=== PATIENT | male | born 1960 | race Caucasian/White ===

== ENCOUNTER → 2018-05-05 | Outpatient (CLI) | payer MEDICAID ==
[~2018-05-05] MED LIST: ANTIBIOTIC; BICA50TA4 PO; CEPH-38 PO; CIPR500T4 PO; CIPR500T78 PO; HYDR-2890 PO; LISI10TA2 PO; LISI5TAB PO; METR500T PO; SULF-222 PO; TRAM50TA2 PO
== END ==
LOC: WOUNDCARE 08:24
PROVIDERS: ATTEND Surgery
DX: I87.323 Chronic venous hypertension (idiopathic) with inflammation of bilateral lower extremity (principal); E11.65 Type 2 diabetes mellitus with hyperglycemia
CPT/HCPCS: 99203

== ENCOUNTER 2019-06-01 20:02 | Inpatient (IN) | payer MEDICAID ==
[~2019-06-01] VITALS: Ht 172.7 cm; Wt 108.9 kg
--- NOTE | 2019-06-01 20:30 | NUR ---
PT STATES HE HAS 2 FENTANYL PATCHES TO RIGHT ARM TOTALLY 125MCG. Michelle PHILIP APRN NOTIFIED.
--- NOTE | 2019-06-01 20:44 | ED Abdominal Pain ---
General Chief Complaint: Abdominal/GI Problems Stated Complaint: COUGHING CONGESTED FEVER Source of Information: Patient Exam Limitations: No Limitations History of Present Illness Date Seen by Provider: Jun 01, 2019 Time Seen by Provider: 20:30 Initial Comments ER by private vehicle with a few days of urinary frequency, suprapubic abdominal pain. General malaise, hyperglycemia area sugar was as high as 500 earlier today. He has a history of diverticulitis with "fistulas" (unclear where). He's been on 2 different rounds of antibiotics since 05/10/19 without any improvement in his symptoms. Timing/Duration: Constant Severity/Quality: Moderate Location: Generalized Abdomen, Suprapubic Radiation: No Radiation Activities at Onset: None Allergies and Home Medications Allergies Coded Allergies: No Known Drug Allergies (Unverified , 05/31/13) Home Medications Bicalutamide 50 Mg Tablet, 50 MG PO DAILY, (Reported) Hydrocodone Bit/Acetaminophen 1 Each Tablet, 1-2 TAB PO Q4H PRN for PAIN, (Rep orted) NEEDED FOR PAIN 10-325MG TABLET Lisinopril 5 Mg Tablet, 5 MG PO DAILY, (Reported) Metronidazole 500 Mg Tab, 1 EACH PO TID Prescribed by: DANIEL VELAZQUEZ on 11/02/13 1019 Patient Home Medication List Home Medication List Reviewed: Yes Review of Systems Review of Systems Constitutional: see HPI EENTM: No Symptoms Reported Respiratory: No Symptoms Reported Cardiovascular: See HPI Gastrointestinal: See HPI, Abdominal Pain Genitourinary: See HPI, Frequency Musculoskeletal: no symptoms reported Skin: no symptoms reported Psychiatric/Neurological: No Symptoms Reported Endocrine: No Symptoms Reported Past Iojdglh-Pxltni-Blbjdn Hx Patient Social History Recent Foreign Travel: No Contact w/Someone Who Travel: No Past Medical History Sleep Apnea Reproductive Disorders: No Sexually Transmitted Disease: No HIV/AIDS: No Prostate Problems, UTI-Chronic Diverticulosis Arthritis Prostate Adverse Reaction/Blood Tranf: No Family Medical History Alcoholism 03 FATHER Cancer 03 MOTHER (LUNG) Family history: Cardiovascular disease 03 FATHER Myocardial infarction 03 FATHER No Family History of: Abdominal aortic aneurysm Family history: Diabetes mellitus Family history: Gastrointestinal disease Family history: Thyroid disorder Kidney disease Prostate cancer Stroke Physical Exam Vital Signs Capillary Refill : Height/Weight/BMI Height: 5'8.00" Weight: 242lbs. 2.0oz. 109.001630bl; BMI Method: General Appearance: no apparent distress, obese, other (chronically ill, appears older than stated age) Neck: non-tender, full range of motion Respiratory: lungs clear, normal breath sounds, no respiratory distress, no accessory muscle use Gastrointestinal: normal bowel sounds, soft, tenderness Rectal: other (golf ball sized area of erythema without open wound or drainage at the superior right buttock near the cleft) Extremities: normal range of motion, non-tender Neurologic/Psychiatric: alert, normal mood/affect, oriented x 3 Skin: normal color, warm/dry Focused Exam Lactate Level 06/01/19 22:00: Lactic Acid Level Laboratory Tests Test 06/01/19 22:00 Progress/Results/Core Measures Results/Orders Lab Results Laboratory Tests Test 06/01/19 20:38 06/01/19 20:52 06/01/19 21:13 06/01/19 22:00 Range/Units White Blood Count 13.5 H 4.3-11.0 10^3/uL Red Blood Count 5.72 4.35-5.85 10^6/uL Hemoglobin 15.2 13.3-17.7 G/DL Hematocrit 44 40-54 % Mean Corpuscular Volume 78 L 80-99 FL Mean Corpuscular Hemoglobin 27 25-34 PG Mean Corpuscular Hemoglobin Concent 34 32-36 G/DL Red Cell Distribution Width 13.6 10.0-14.5 % Platelet Count 284 130-400 10^3/uL Mean Platelet Volume 9.1 7.4-10.4 FL Neutrophils (%) (Auto) 92 H 42-75 % Lymphocytes (%) (Auto) 5 L 12-44 % Monocytes (%) (Auto) 3 0-12 % Eosinophils (%) (Auto) 0 0-10 % Basophils (%) (Auto) 0 0-10 % Neutrophils # (Auto) 12.4 H 1.8-7.8 X 10^3 Lymphocytes # (Auto) 0.6 L 1.0-4.0 X 10^3 Monocytes # (Auto) 0.5 0.0-1.0 X 10^3 Eosinophils # (Auto) 0.0 0.0-0.3 10^3/uL Basophils # (Auto) 0.0 0.0-0.1 10^3/uL Neutrophils % (Manual) 85 % Lymphocytes % (Manual) 4 % Monocytes % (Manual) 3 % Band Neutrophils 8 % Blood Morphology Comment NORMAL Sodium Level 129 L 135-145 MMOL/L Potassium Level 4.3 3.6-5.0 MMOL/L Chloride Level 90 L 98-107 MMOL/L Carbon Dioxide Level 21 21-32 MMOL/L Anion Gap 18 H 5-14 MMOL/L Blood Urea Nitrogen 24 H 7-18 MG/DL Creatinine 1.88 H 0.60-1.30 MG/DL Estimat Glomerular Filtration Rate 37 BUN/Creatinine Ratio 13 Glucose Level 700 *H 70-105 MG/DL Calcium Level 9.7 8.5-10.1 MG/DL Corrected Calcium 10.4 H 8.5-10.1 MG/DL Total Bilirubin 0.6 0.1-1.0 MG/DL Aspartate Amino Transf (AST/SGOT) 50 H 5-34 U/L Alanine Aminotransferase (ALT/SGPT) 73 H 0-55 U/L Alkaline Phosphatase 164 H 40-136 U/L Total Protein 7.5 6.4-8.2 GM/DL Albumin 3.1 L 3.2-4.5 GM/DL Beta-Hydroxybutyrate (Chem panel) 0.05 0.00-0.27 MMOL/L Glucometer > 600 *H 70-110 MG/DL Urine Color YELLOW Urine Clarity CLEAR Urine pH 5.5 5-9 Urine Specific [place] <=1.005 1.016-1.022 Urine Protein 1+ H NEGATIVE Urine Glucose (UA) 3+ H NEGATIVE Urine Ketones NEGATIVE NEGATIVE Urine Nitrite NEGATIVE NEGATIVE Urine Bilirubin NEGATIVE NEGATIVE Urine Urobilinogen 0.2 < = 1.0 MG/DL Urine Leukocyte Esterase NEGATIVE NEGATIVE Urine RBC (Auto) 2+ H NEGATIVE Urine RBC 2-5 H /HPF Urine WBC 10-25 H /HPF Urine Squamous Epithelial Cells RARE /HPF Urine Crystals NONE /LPF Urine Bacteria LARGE H /HPF Urine Casts NONE /LPF Urine Mucus NEGATIVE /LPF Urine Culture Indicated YES My Orders Orders - WILLIE PHILIP APRN Cbc With Automated Diff (06/01/19 20:39) Comprehensive Metabolic Panel (06/01/19 20:39) Ua Culture If Indicated (06/01/19 20:39) Beta Hydroxybutyrate (06/01/19 20:39) Ct Abdomen/Pelvis Wo (06/01/19 20:39) Ed Iv/Invasive Line Start (06/01/19 20:39) Accucheck Stat ONCE (06/01/19 20:39) Ns Iv 1000 Ml (Sodium Chloride 0.9%) (06/01/19 20:45) Manual Differential (06/01/19 20:38) Insulin (Regular) Human (Humulin R (Per (06/01/19 21:00) Piperacillin Sodium/Tazobactam (Zosyn Vi (06/01/19 21:30) Urine Culture (06/01/19 21:13) Blood Culture (06/01/19 21:35) Lactic Acid Analyzer (06/01/19 21:35) Medications Given in ED Current Medications Medications Dose Ordered Sig/Beverly Route Start Time Stop Time Status Last Admin Dose Admin Insulin Human Regular 10 unit ONCE ONCE IV 06/01/19 21:00 06/01/19 21:01 DC 06/01/19 21:27 10 UNIT Diagnostic Imaging Diagonstic Imaging: CT Comments NAME: ELIANA ZIMMERMAN [facility] REC#: [id number] PT STATUS: REG ER : 1960 PHYSICIAN: WILLIE PHILIP APRN ADMIT DATE: 06/01/19/ER Draft Date of Exam:06/01/19 CT ABDOMEN/PELVIS WO PROCEDURE: CT abdomen and pelvis without contrast. TECHNIQUE: Multiple contiguous axial images were obtained through the abdomen and pelvis without the use of intravenous contrast. Auto Exposure Controls were utilized during the CT exam to meet ALARA standards for radiation dose reduction. DATE: June 01, 2019. COMPARISON: CT abdomen and pelvis October 29, 2013. INDICATION: 59-year-old male, fever and abdominal pain. FINDINGS: There are limitations for evaluation of the abdominal organs, neoplastic processes, abscess and limited evaluation of the vasculature relating to the lack of intravenous contrast. The visualized portions of the lung bases are clear. The heart is not enlarged. There is no identified pericardial effusion. The liver is normal in size and contour. The gallbladder is unremarkable. There is no intrahepatic or extrahepatic bile duct dilation. The main pancreatic duct is not abnormally dilated. Limited noncontrast evaluation of the pancreatic parenchyma is unremarkable. The spleen is normal in size. There is a low-attenuation left adrenal nodule on axial image 28 measuring 1.5 cm in size with internal attenuation of 0 Hounsfield units. This is diagnostic for an adrenal adenoma. There is moderate right hydronephrosis. There is a punctate nonobstructing right renal stone on axial image 41 measuring roughly 1 mm in size. There is right hydroureter. There is no identified right ureteral stone. There is also moderate left hydroureteronephrosis. There is no identified left renal or ureteral stone. There is no identified urinary bladder wall thickening. There is gas in the urinary bladder which potentially could reflect recent catheterization. There is abnormal gas in the perineum which extends just adjacent to the right lateral margin of the anus on axial image 85. This extends near the posterior skin margin as well as additional abnormal soft tissue gas subjacent to the right obturator internus muscle on axial image 76. Recommend correlation for a potential skin ulcer. If there is no skin ulcer, necrotizing process is considered. There is a very large and broad-based anterior abdominal wall hernia. There is distortion of bowel contours. There are gas and fluid-filled segments of small bowel which are mildly dilated up to approximately 2.7 cm in diameter. No evidence to suggest acute appendicitis. There is no identified free intraperitoneal air. There is no identified intra-abdominal or pelvic fluid collection. There is no free pelvic fluid. There are abnormally enlarged bilateral retroperitoneal lymph nodes which measure up to roughly 1.8 cm in short axis as measured on axial image 37. There is a very large right common iliac chain lymph node on axial image 50 measuring 2.7 cm in short axis. There are multilevel degenerative changes of the spine. There is no identified acute bony abnormality. IMPRESSION: CT abdomen and pelvis: 1. Very large and broad-based anterior abdominal wall hernia defect with associated distortion of bowel contour. There is an abnormal but nonspecific bowel gas pattern without convincing evidence of bowel obstruction. 2. Bilateral moderate hydroureteronephrosis which is an interval change since October 29, 2013. 3. Prominent abnormally enlarged bilateral retroperitoneal lymph nodes and very large abnormal right common iliac chain lymph node. These are of uncertain exact etiology. Metastatic maria c disease and lymphoma are in the differential diagnosis. 4. Abnormal soft tissue gas in the perineum extending near the right lateral margin of the anus and subjacent to the right obturator internus muscle. Recommend correlation for an adjacent soft tissue ulcer. A necrotizing infectious process is also considered. Dictated on workstation # [id number] Dict: 06/01/192106 Trans: 06/01/192120 PJE [id number] Interpreted by: HANH YEPEZ MD Electronically signed by: Departure Communication (Admissions) Time/Spoke to Admitting Phy: 22:21 Will admit to the unit, patient will go there until surgery, there is another patient going to surgery currently for D&C Spoke with Dr. Tam at this time, 2[address] findings of subcutaneous air and concern for necrotizing process. Zosyn has been ordered. I questioned the patient about this, he's had tender area since the when the urinary symptoms began. 2153-Anel is here, plans to take the patient to the operating room for debridement and evaluation of perianal/perirectal wound Impression Primary Impression: Hyperglycemia Additional Impression: Necrotizing cellulitis Disposition: ADMITTED INPATIENT Condition: Critical Admissions Decision to Admit Reason: Admit from ER (General) Decision to Admit/Date: Jun 01, 2019 Time/Decision to Admit Time: 21:54 Departure-Patient Inst. Referrals: OLIVER MURGUIA MD (PCP) Primary Care Physician WILLIE PHILIP APRN Jun 01, 2019 20:44
[2019-06-01] MEDS ORDERED: NS IV 1000 ML 1,000 ML IV SCH (20:45)
[2019-06-01 20:48] LABS: BASOPHILS % (AUTO) 0 % (0-10); EOSINOPHILS % (AUTO) 0 % (0-10); HEMATOCRIT 44 % (40-54); HEMOGLOBIN 15.2 G/DL (13.3-17.7); LYMPHOCYTES # (AUTO) 0.6 X 10^3 (1.0-4.0); LYMPHOCYTES % (AUTO) 5 % (12-44); MEAN CORPUSCULAR HEMOGLOBIN 27 PG (25-34); MEAN CORPUSCULAR HGB CONC 34 G/DL (32-36); MEAN CORPUSCULAR VOLUME 78 FL (80-99); MEAN PLATELET VOLUME 9.1 FL (7.4-10.4); MONOCYTES # (AUTO) 0.5 X 10^3 (0.0-1.0); MONOCYTES % (AUTO) 3 % (0-12); NEUTROPHILS # (AUTO) 12.4 X 10^3 (1.8-7.8); NEUTROPHILS % (AUTO) 92 % (42-75); PLATELET COUNT 284 10^3/uL (130-400); RED CELL DISTRIBUTION WIDTH 13.6 % (10.0-14.5); WHITE BLOOD COUNT 13.5 10^3/uL (4.3-11.0)
[2019-06-01] MEDS ORDERED: inSUlin (REGULAR) HUMAN 1 UNIT/0.01 ML (CHARGE PER UNIT) IV ONE (21:00)
[2019-06-01 21:06] LABS: ALBUMIN 3.1 GM/DL (3.2-4.5); BILIRUBIN,TOTAL 0.6 MG/DL (0.1-1.0); CALCIUM 9.7 MG/DL (8.5-10.1); CREATININE SERUM 1.88 MG/DL (0.60-1.30); POTASSIUM 4.3 MMOL/L (3.6-5.0); TOTAL PROTEIN 7.5 GM/DL (6.4-8.2)
--- NOTE | 2019-06-01 21:22 | Diagnostic Imaging Report ---
PROCEDURE: CT abdomen and pelvis without contrast. TECHNIQUE: Multiple contiguous axial images were obtained through the abdomen and pelvis without the use of intravenous contrast. Auto Exposure Controls were utilized during the CT exam to meet ALARA standards for radiation dose reduction. DATE: June 01, 2019. COMPARISON: CT abdomen and pelvis October 29, 2013. INDICATION: 59-year-old male, fever and abdominal pain. FINDINGS: There are limitations for evaluation of the abdominal organs, neoplastic processes, abscess and limited evaluation of the vasculature relating to the lack of intravenous contrast. The visualized portions of the lung bases are clear. The heart is not enlarged. There is no identified pericardial effusion. The liver is normal in size and contour. The gallbladder is unremarkable. There is no intrahepatic or extrahepatic bile duct dilation. The main pancreatic duct is not abnormally dilated. Limited noncontrast evaluation of the pancreatic parenchyma is unremarkable. The spleen is normal in size. There is a low-attenuation left adrenal nodule on axial image 28 measuring 1.5 cm in size with internal attenuation of 0 Hounsfield units. This is diagnostic for an adrenal adenoma. There is moderate right hydronephrosis. There is a punctate nonobstructing right renal stone on axial image 41 measuring roughly 1 mm in size. There is right hydroureter. There is no identified right ureteral stone. There is also moderate left hydroureteronephrosis. There is no identified left renal or ureteral stone. There is no identified urinary bladder wall thickening. There is gas in the urinary bladder which potentially could reflect recent catheterization. There is abnormal gas in the perineum which extends just adjacent to the right lateral margin of the anus on axial image 85. This extends near the posterior skin margin as well as additional abnormal soft tissue gas subjacent to the right obturator internus muscle on axial image 76. Recommend correlation for a potential skin ulcer. If there is no skin ulcer, necrotizing process is considered. There is a very large and broad-based anterior abdominal wall hernia. There is distortion of bowel contours. There are gas and fluid-filled segments of small bowel which are mildly dilated up to approximately 2.7 cm in diameter. No evidence to suggest acute appendicitis. There is no identified free intraperitoneal air. There is no identified intra-abdominal or pelvic fluid collection. There is no free pelvic fluid. There are abnormally enlarged bilateral retroperitoneal lymph nodes which measure up to roughly 1.8 cm in short axis as measured on axial image 37. There is a very large right common iliac chain lymph node on axial image 50 measuring 2.7 cm in short axis. There are multilevel degenerative changes of the spine. There is no identified acute bony abnormality. IMPRESSION: CT abdomen and pelvis: 1. Very large and broad-based anterior abdominal wall hernia defect with associated distortion of bowel contour. There is an abnormal but nonspecific bowel gas pattern without convincing evidence of bowel obstruction. 2. Bilateral moderate hydroureteronephrosis which is an interval change since October 29, 2013. 3. Prominent abnormally enlarged bilateral retroperitoneal lymph nodes and very large abnormal right common iliac chain lymph node. These are of uncertain exact etiology. Metastatic maria c disease and lymphoma are in the differential diagnosis. 4. Abnormal soft tissue gas in the perineum extending near the right lateral margin of the anus and subjacent to the right obturator internus muscle. Recommend correlation for an adjacent soft tissue ulcer. A necrotizing infectious process is also considered. Dictated by: Dictated on workstation # [id number]
[2019-06-01 21:28] LABS: BILIRUBIN,URINE NEGATIVE (NEGATIVE); CLARITY,URINE CLEAR; COLOR,URINE YELLOW; GLUCOSE, URINE (UA) 3+ (NEGATIVE); KETONES,URINE NEGATIVE (NEGATIVE); LEUKOCYTE ESTERASE ,URINE NEGATIVE (NEGATIVE); NITRITE,URINE NEGATIVE (NEGATIVE); PH,URINE 5.5 (5-9); PROTEIN,URINE 1+ (NEGATIVE)
[2019-06-01] MEDS ORDERED: PIPERACILLIN SODIUM/TAZOBACTAM 4.5 GM in NS (IVPB) 100 ML IV ONE (21:30)
[2019-06-01 21:39] LABS: BACTERIA,URINE LARGE /HPF; SQUAMOUS EPITHELIAL CELL,UR RARE /HPF
[2019-06-01 21:46] LABS: BAND NEUTROPHILS 8 %; LYMPHOCYTES % (MANUAL) 4 %; MONOCYTES % (MANUAL) 3 %; NEUTROPHILS % (MANUAL) 85 %
[2019-06-01 21:47] LABS: RBC MORPH NORMAL
[2019-06-01] MEDS ORDERED: fentaNYL INJECTION 100 MCG/2 ML AMP IVP ONE (22:15)
[2019-06-01] MEDS ORDERED: CLINDAMYCIN 900 MG/50 ML IVPB 50 ML IV ONE (22:30)
[2019-06-01] MEDS ORDERED: VANCOMYCIN INJECTION 1,000 MG in NS (IVPB) 250 ML IV ONE (22:30)
--- NOTE | 2019-06-01 22:55 | NUR ---
REPORT TO ROSANNE WYLIE IN ICU.
[2019-06-01] MEDS ORDERED: NS (IVPB) 250 ML ONE (23:01)
[2019-06-01] MEDS ORDERED: VANCOMYCIN 1000 MG/VIAL ONE (23:01)
--- NOTE | 2019-06-01 23:07 | Consultation - Surgery ---
History of Present Illness History of Present Illness Patient Consulted On(franny/time) 06/01/19 23:01 Date Seen by Provider: Jun 01, 2019 Time Seen by Provider: 23:01 History of Present Illness Consult requested by Dr. Urbano for necrotizing soft tissue infection Patient is a 59 year old male poorly controlled diabetic. Patient has had and area on right buttock for 2-3 weeks. Swollen red area. Tender moderate to severe. Aching pain. Maybe has gotten minimally better. Blood sugars have been not controlled. Also with urinary symptoms and suprapubic pain. Having some diarrhea. He says has history of diverticulitis and fistulas. Has been on antibioitics. Patient had ct scan abdomen and pelvis demonstrating air along right of rectum to right buttock concerning for necrotizing soft tissue infection, loss of domain ventral hernia, enlarged retroperitoneal lymphadenopathy. Allergies and Home Medications Allergies Coded Allergies: No Known Drug Allergies (Unverified , 05/31/13) Home Medications Bicalutamide 50 Mg Tablet, 50 MG PO DAILY, (Reported) Hydrocodone Bit/Acetaminophen 1 Each Tablet, 1-2 TAB PO Q4H PRN for PAIN, (Reported) NEEDED FOR PAIN 10-325MG TABLET Lisinopril 5 Mg Tablet, 5 MG PO DAILY, (Reported) Metronidazole 500 Mg Tab, 1 EACH PO TID Prescribed by: DANIEL VELAZQUEZ on 11/02/13 1019 Patient Home Medication List Home Medication List Reviewed: Yes Past Lajxumt-Hrfslx-Wpywto Hx Patient Social History Alcohol Use: Denies Use Recreational Drug Use: No Smoking Status: Current Everyday Smoker Type Used: Cigarettes Recent Foreign Travel: No Contact w/Someone Who Travel: No Recent Infectious Disease Expo: No Surgeries History of Surgeries: Yes (CARPAL TUNNEL, BOWEL RESECTION, TRIGGER FINGER) Surgeries: Coronary Stent Respiratory History of Respiratory Disorde: Yes (SLEEP APNEA) Respiratory Disorders: Sleep Apnea Cardiovascular History of Cardiac Disorders: Yes Cardiac Disorders: Heart Attack Neurological History of Neurological Disord: No Reproductive System Hx Reproductive Disorders: No Sexually Transmitted Disease: No HIV/AIDS: No Genitourinary Genitourinary Disorders: Prostate Problems, UTI-Chronic Gastrointestinal History of Gastrointestinal Di: Yes (COLOCUTANEOUS FISTULA, BOWEL RESECTION) Gastrointestinal Disorders: Diverticulosis Musculoskeletal History of Musculoskeletal Dis: Yes (ARTHRITIS) Musculoskeletal Disorders: Arthritis Endocrine History of Endocrine Disorders: Yes Endocrine Disorders: Diabetes, Insulin dep Cancer History of Cancer: Yes Cancer: Prostate Psychosocial History of Psychiatric Problem: No Integumentary History of Skin or Integumenta: No Blood Transfusions History of Blood Disorders: No Adverse Reaction to a Blood Tr: No Reviewed Nursing Assessment Reviewed/Agree w Nursing PMH: Yes Family Medical History Significant Family History: No Pertinent Family Hx Family Medial History: Alcoholism 03 FATHER Cancer 03 MOTHER (LUNG) Family history: Cardiovascular disease 03 FATHER Myocardial infarction 03 FATHER No Family History of: Abdominal aortic aneurysm Family history: Diabetes mellitus Family history: Gastrointestinal disease Family history: Thyroid disorder Kidney disease Prostate cancer Stroke Review of Systems-General Constitutional: No chills, No diaphoresis EENTM: No hearing loss, No blurred vision, No double vision Respiratory: No cough, No dyspnea on exertion, No short of breath Cardiovascular: No chest pain, No edema Gastrointestinal: No heartburn, No vomiting; other (suprapubic pain) Genitourinary: see HPI Musculoskeletal: No back pain, No gout, No joint pain Skin: change in color Psychiatric/Neurological: Denies Anxiety, Denies Depressed Physical Exam-General Problems Physical Exam Vital Signs Vital Signs - First Documented 06/01/19 20:29 Temp 36.9 Pulse 94 Resp 18 B/P (MAP) 163/95 (117) O2 Delivery Room Air Capillary Refill : Less Than 3 Seconds General Appearance: WD/WN, no apparent distress HEENT: PERRL/EOMI, normal ENT inspection Neck: non-tender, supple Respiratory: chest non-tender, no respiratory distress, no accessory muscle use Cardiovascular: tachycardia Gastrointestinal: non tender, soft, hernia (large ventral) Rectal: deferred Genital/Rectal: other (right buttock cellulitis indurated and slight fluctuance) Back: normal inspection, no CVA tenderness Extremities: normal range of motion, non-tender, other (right second finger partial amputation) Neurologic/Psychiatric: cell liner II-XII nml as tested, alert, oriented x 3 Skin: other (erythema right buttock/perirectal area) Lymphatic: no adenopathy Data Review Labs Laboratory Tests 06/01/19 20:38: White Blood Count 13.5H, Red Blood Count 5.72, Hemoglobin 15.2, Hematocrit 44, Mean Corpuscular Volume 78L, Mean Corpuscular Hemoglobin 27, Mean Corpuscular Hemoglobin Concent 34, Red Cell Distribution Width 13.6, Platelet Count 284, Mean Platelet Volume 9.1, Neutrophils (%) (Auto) 92H, Lymphocytes (%) (Auto) 5L, Monocytes (%) (Auto) 3, Eosinophils (%) (Auto) 0, Basophils (%) (Auto) 0, Neutro phils # (Auto) 12.4H, Lymphocytes # (Auto) 0.6L, Monocytes # (Auto) 0.5, Eosinophils # (Auto) 0.0, Basophils # (Auto) 0.0, Neutrophils % (Manual) 85, Lymphocytes % (Manual) 4, Monocytes % (Manual) 3, Band Neutrophils 8, Blood Morphology Comment NORMAL, Sodium Level 129L, Potassium Level 4.3, Chloride Level 90L, Carbon Dioxide Level 21, Anion Gap 18H, Blood Urea Nitrogen 24H, Creatinine 1.88H, Estimat Glomerular Filtration Rate 37, BUN/Creatinine Ratio 13, Glucose Level 700*H, Calcium Level 9.7, Corrected Calcium 10.4H, Total Bilirubin 0.6, Aspartate Amino Transf (AST/SGOT) 50H, Alanine Aminotransferase (ALT/SGPT) 73H, Alkaline Phosphatase 164H, Total Protein 7.5, Albumin 3.1L, Beta-Hydroxybutyrate (Chem panel) 0.05 06/01/19 20:52: Glucometer > 600*H 06/01/19 21:13: Urine Color YELLOW, Urine Clarity CLEAR, Urine pH 5.5, Urine Specific [place] <=1.005, Urine Protein 1+H, Urine Glucose (UA) 3+H, Urine Ketones NEGATIVE, Urine Nitrite NEGATIVE, Urine Bilirubin NEGATIVE, Urine Urobilinogen 0.2, Urine Leukocyte Esterase NEGATIVE, Urine RBC (Auto) 2+H, Urine RBC 2-5H, Urine WBC 10- 25H, Urine Squamous Epithelial Cells RARE, Urine Crystals NONE, Urine Bacteria LARGEH, Urine Casts NONE, Urine Mucus NEGATIVE, Urine Culture Indicated YES 06/01/19 22:00: Lactic Acid Level 3.60*H 06/01/19 22:06: Glucometer 402*H Assessment/Plan Assessment/Plan Assessment/Plan right perirectal soft tissue infection/cellulitis conerning for necrotizing infection with air in soft tissues by ct scan loss of domain ventral hernia enlarged retroperitoneal lymphadenopathy, may be secondary to infection diabetes, uncontrolled patient discussed risks and benefits of incision and drainage and debridement of right buttock soft tissue infection, central line placement. patient understands if necrotizing infection high risk for poor outcome even with surgical intervention patient wishes to proceed Antibiotics Zosyn/Vanc/Clindamycin Will need continued packing/wound care Control of diabetes To OR. MONTY GAO DO Jun 01, 2019 23:07
[2019-06-01] MEDS ORDERED: ROCURONIUM 10 MG/ML 5 ML SYRINGE IV ONE (23:10)
[2019-06-01] MEDS ORDERED: proPOfol 200 MG/20 ML (DIPRIVAN) VIAL IV ONE (23:10)
[2019-06-01] MEDS ORDERED: ONDANSETRON 4 MG/2 ML (SDV) Z0FRAN ONE (23:10)
[2019-06-01] MEDS ORDERED: LIDOCAINE PF 2% 5 ML (XYLOCAINE) VIAL ONE (23:10)
[2019-06-01] MEDS ORDERED: fentaNYL INJECTION 100 MCG/2 ML AMP ONE (23:10)
[2019-06-01] MEDS ORDERED: SUCCINYLCHOLINE INJ 100 MG/5 ML SYR ONE (23:10)
[2019-06-01] MEDS ORDERED: MIDAZOLAM 2 MG/2 ML (VERSED) VIAL ONE (23:11)
--- NOTE | 2019-06-01 23:15 | NUR ---
ARIE AND SYMONE PULLED IN ER AND SENT WITH OR CREW TO BE GIVEN IN OR.
--- NOTE | 2019-06-01 23:15 | NUR ---
PT TO OR FOR SURGERY AT THIS TIME PRIOR TO ICU ADMIT. REPORT TO ROSANNE CAI.
[2019-06-01] MEDS ORDERED: HEParin (CENTRAL IV FLUSH) 500 UNIT/5 ML SYR ONE (23:33)
[2019-06-01] MEDS ORDERED: HEParin 1000 UNIT/ML (10ML VIAL) FOR BOLUS ONE (23:33)
[2019-06-02] VITALS (32 sets, daily range): BP systolic 84–153; BP diastolic 54–90
[2019-06-02] MEDS ORDERED: morphine INJ 10 MG/ML 1ML (SYR OR VIAL) ONE (00:08)
[2019-06-02] MEDS ORDERED: SEVOFLURANE (ULTANE) 15 ML INHAL SOLN ONE ×2 (00:35)
[2019-06-02] MEDS ORDERED: PHENYLEPHRINE 100 MCG/ML 10 ML (ANESTHESIA) SYR ONE (00:35)
--- NOTE | 2019-06-02 00:49 | Progress Note-Post Operative ---
Post-Operative Progess Note Surgeon (s)/Irrigation Teacher (s) Surgeon MONTY GAO DO Irrigation Teacher: na Pre-Operative Diagnosis right buttock/perirectal necrotizing soft tissue infection Post-Operative Diagnosis same Procedure & Operative Findings Date of Procedure 06/02/19 Procedure Performed/Findings incision and drainage and debridement [id number] right buttock and perirectal necrotizing soft tissue infection right IJ u/s guided central line placement Anesthesia Type gen Estimated Blood Loss Estimated blood loss (mL): min Specimens/Packing Specimens Removed culture/necrotic tissue and skin MONTY GAO DO Jun 02, 2019 00:49
[2019-06-02] MEDS ORDERED: morphine INJ 10 MG/ML 1ML (SYR OR VIAL) IVP ONE (01:00)
[2019-06-02] MEDS: POTASSIUM CL 10MEQ/50ML IVPB 50 ML IV SCH ×4 (01:00→06:00)
[2019-06-02] MEDS ORDERED: ONDANSETRON 4 MG/2 ML (SDV) Z0FRAN IVP PRN (01:00)
[2019-06-02] MEDS ORDERED: 1/2 NS IV SOLUTION 1,000 ML IV ONE (01:00)
--- NOTE | 2019-06-02 01:00 | NUR ---
REPORT RECEIVED FROM PIANO MACHINE OPERATOR MORENITA, ASSUME CARE OF THIS PT AT THIS TIME
[2019-06-02] MEDS ORDERED: NORMAL SALINE 250 ML ONE (01:01)
[2019-06-02] MEDS ORDERED: inSUlin (REGULAR) HUMAN 1 UNIT/0.01 ML (CHARGE PER UNIT) ONE (01:02)
[2019-06-02] MEDS ORDERED: POTASSIUM CL 10MEQ/50ML IVPB 50 ML IV ONE (01:04)
[2019-06-02] MEDS ORDERED: D5 1/2 NS IV 1,000 ML IV SCH (01:45)
[2019-06-02] MEDS ORDERED: 1/2 NS IV SOLUTION 1,000 ML IV SCH (01:45)
[2019-06-02] MEDS ORDERED: REGULAR inSUlin DRIP 250 UNITS/NS 250 ML IV SCH ×2 (01:45)
[2019-06-02] MEDS ORDERED: fentaNYL PATCH 25 MCG (DURAGESIC) TOP SCH (01:45)
[2019-06-02] MEDS ORDERED: inSUlin REGULAR TPN/DRIP 250 UNITS/NS 250 ML IV SCH ×2 (01:45)
[2019-06-02] MEDS ORDERED: DEXTROSE 10% IV SOLUTION 1,000 ML IV SCH (01:45)
[2019-06-02] MEDS: fentaNYL INJECTION 100 MCG/2 ML AMP IV PRN (02:23)
[2019-06-02] MEDS: fentaNYL PATCH 100 MCG (DURAGESIC) TOP SCH ×2 (02:29→02:50)
[2019-06-02] MEDS: PATCH REMOVAL TP SCH (02:50)
[2019-06-02 03:08] LABS: BASOPHILS % (AUTO) 0 % (0-10); EOSINOPHILS % (AUTO) 0 % (0-10); HEMATOCRIT 39 % (40-54); HEMOGLOBIN 13.3 G/DL (13.3-17.7); LYMPHOCYTES # (AUTO) 0.8 X 10^3 (1.0-4.0); LYMPHOCYTES % (AUTO) 7 % (12-44); MEAN CORPUSCULAR HEMOGLOBIN 27 PG (25-34); MEAN CORPUSCULAR HGB CONC 34 G/DL (32-36); MEAN CORPUSCULAR VOLUME 78 FL (80-99); MEAN PLATELET VOLUME 8.9 FL (7.4-10.4); MONOCYTES # (AUTO) 0.7 X 10^3 (0.0-1.0); MONOCYTES % (AUTO) 6 % (0-12); NEUTROPHILS # (AUTO) 10.1 X 10^3 (1.8-7.8); NEUTROPHILS % (AUTO) 87 % (42-75); PLATELET COUNT 224 10^3/uL (130-400); RED CELL DISTRIBUTION WIDTH 13.4 % (10.0-14.5); WHITE BLOOD COUNT 11.6 10^3/uL (4.3-11.0)
[2019-06-02] MEDS ORDERED: PIPERACILLIN/TAZO 4.5 GM VIAL (ZOSYN) IV ONE (03:25)
[2019-06-02] MEDS: PIPERACILLIN/TAZO 4.5 GM/NS 100 ML IV SCH ×6 (03:26→19:45)
[2019-06-02] MEDS ORDERED: NS (IVPB) 100 ML ONE (03:26)
[2019-06-02 03:30] LABS: ALBUMIN 2.5 GM/DL (3.2-4.5); BILIRUBIN,TOTAL 0.5 MG/DL (0.1-1.0); CALCIUM 8.4 MG/DL (8.5-10.1); CREATININE SERUM 1.27 MG/DL (0.60-1.30); PHOSPHORUS 3.5 MG/DL (2.3-4.7)
[2019-06-02] MEDS: MAGNESIUM 1 GM/100 ML IVPB 100 ML IV SCH (03:55)
[2019-06-02] MEDS: KCL 20 MEQ TAB (K-DUR) PO SCH (03:56)
--- NOTE | 2019-06-02 05:43 | Pulmonary Consultation ---
History of Present Illness History of Present Illness Date Seen by Provider: Jun 02, 2019 Time Seen by Provider: 05:38 Date of Admission Allergies and Home Medications Allergies Coded Allergies: No Known Drug Allergies (Unverified , 05/31/13) Home Medications Bicalutamide 50 Mg Tablet, 50 MG PO DAILY, (Reported) Hydrocodone Bit/Acetaminophen 1 Each Tablet, 1-2 TAB PO Q4H PRN for PAIN, (Reported) NEEDED FOR PAIN 10-325MG TABLET Lisinopril 5 Mg Tablet, 5 MG PO DAILY, (Reported) Metronidazole 500 Mg Tab, 1 EACH PO TID Prescribed by: DANIEL VELAZQUEZ on 11/02/13 1019 Past Imddfvw-Mfkcxz-Nqilhk Hx Patient Social History Alcohol Use: Denies Use Recreational Drug Use: No Smoking Status: Current Everyday Smoker Type Used: Cigarettes Recent Foreign Travel: No Contact w/Someone Who Travel: No Recent Infectious Disease Expo: No Physical Abuse: No Sexual Abuse: No Mistreated: No Fear: No Immunizations Up To Date Date of Influenza Vaccine: Jan 30, 2019 Past Medical History Surgeries: Yes (CARPAL TUNNEL, BOWEL RESECTION, TRIGGER FINGER) Coronary Stent Respiratory: Yes (SLEEP APNEA) Sleep Apnea Cardiac: Yes Heart Attack Neurological: No Reproductive Disorders: No Sexually Transmitted Disease: No HIV/AIDS: No Prostate Problems, UTI-Chronic Gastrointestinal: Yes (COLOCUTANEOUS FISTULA, BOWEL RESECTION) Diverticulosis Musculoskeletal: Yes (ARTHRITIS) Arthritis Endocrine: Yes Diabetes, Insulin dep Cancer: Yes Prostate Psychosocial: No Integumentary: No Blood Disorders: No Adverse Reaction/Blood Tranf: No Family Medical History Alcoholism 03 FATHER Cancer 03 MOTHER (LUNG) Family history: Cardiovascular disease 03 FATHER Myocardial infarction 03 FATHER No Family History of: Abdominal aortic aneurysm Family history: Diabetes mellitus Family history: Gastrointestinal disease Family history: Thyroid disorder Kidney disease Prostate cancer Stroke No Pertinent Family Hx Review of Systems Time Seen by Provider: 05:48 Sepsis Event Evaluation Height, Weight, BMI Height: 5'8.00" Weight: 242lbs. 2.0oz. 109.511282lz; 33.52 BMI Method: Exam Exam Vital Signs Date Time Temp Pulse Resp B/P (MAP) Pulse Ox O2 Delivery O2 Flow Rate FiO2 06/02/19 04:00 83 23 111/62 (78) 100 Room Air 06/02/19 04:00 100 Room Air 06/02/19 04:00 36.9 06/02/19 03:31 36.9 93 97 06/02/19 03:12 100 Room Air 06/02/19 03:00 82 23 107/58 (74) 100 Room Air 06/02/19 02:15 Room Air 06/02/19 02:00 84 22 93/70 (78) 100 OxyMask 5.00 06/02/19 01:50 37.4 24 135/74 (94) 100 Simple Mask 8 06/02/19 01:50 Simple Mask 8 06/02/19 01:45 84 25 135/74 (94) 100 OxyMask 5.00 06/02/19 01:40 24 119/86 (97) 100 Simple Mask 8 06/02/19 01:30 82 18 119/66 (83) 100 OxyMask 5.00 06/02/19 01:30 24 104/60 (75) 100 Simple Mask 8 06/02/19 01:30 Simple Mask 8 06/02/19 01:20 24 110/62 (78) 100 Simple Mask 8 06/02/19 01:15 81 23 110/62 (78) 100 OxyMask 5.00 06/02/19 01:15 Simple Mask 8 06/02/19 01:10 24 100/62 (75) 100 Simple Mask 8 06/02/19 01:00 24 106/61 (76) 100 Simple Mask 8 06/02/19 01:00 37.4 82 26 106/61 (76) 100 OxyMask 5.00 06/02/19 01:00 Simple Mask 8 06/02/19 00:50 83 06/02/19 00:46 Simple Mask 8 06/02/19 00:46 37.2 22 91/59 (70) 99 Simple Mask 8 06/01/19 23:14 36.9 93 18 153/90 (117) 97 06/01/19 20:29 36.9 94 18 163/95 (117) Room Air I & O 06/02/19 07:00 Intake Total 1650 ml Output Total 300 ml Balance 1350 ml Height & Weight Height: 5'8.00" Weight: 242lbs. 2.0oz. 109.201579nq; 33.52 BMI Method: Capillary Refill: Less Than 3 Seconds Gastrointestinal: non tender, soft, hernia (large ventral) Results Lab Laboratory Tests 06/01/19 20:38 06/02/19 02:55 Assessment/Plan Assessment/Plan right perirectal soft tissue infection/cellulitis conerning for necrotizing infection with air in soft tissues by ct scan s/p debridement -Continue Zosyn/Vanc/Clindamycin -Pain control HHNK with hx of IDDM -D/C DKA protocol -start Levemeir 15units Q12 for now. We are not sure how much insulin pt takes at home yet -Start SSI -D/C D5 and start LR Hx of ASMITA -Obtain home machine if available CAD SANDY CHASE DO Jun 02, 2019 05:43
[2019-06-02] MEDS ORDERED: LACTATED RINGERS 1,000 ML IV ONE (05:44)
[2019-06-02] MEDS: CLINDAMYCIN 900 MG/50 ML IVPB 50 ML IV SCH ×3 (06:00→21:58)
[2019-06-02] MEDS: LACTATED RINGERS 1,000 ML IV SCH ×3 (06:00→14:50)
[2019-06-02] MEDS: inSUlin ASPART (NovoLOG) 1 UNIT/0.01 ML (CHARGE PER UNIT) SC SCH ×4 (06:01→21:25)
--- NOTE | 2019-06-02 06:42 | History & Physical-Hospitalist ---
History of Present Illness HPI/Chief Complaint ER by private vehicle with a few days of urinary frequency, suprapubic abdominal pain. General malaise, hyperglycemia area sugar was as high as 500 earlier today. He has a history of diverticulitis with "fistulas" (unclear where). He's been on 2 different rounds of antibiotics since 05/10/19 without any improvement in his symptoms. Patient sleeping this morning upon arousal less pain noted. He has a fentanyl patch on nurses only had to give 1 dose of narcotic through the night. No chest pain or shortness of breath reported. Date Seen 06/02/19 Time Seen by a Provider: 06:30 Attending Physician Sayda Yanes MD PCP Estrella Telles MD Referring Physician Date of Admission Jun 01, 2019 at 22:03 Home Medications & Allergies Home Medications Reviewed patient Home Medication Reconciliation performed by pharmacy medication reconciliations technician automatic and/or nursing. Patients Allergies have been reviewed. Allergies Allergies Coded Allergies No Known Drug Allergies (Unverified05/31/13) Past Fxafybb-Ywxqje-Lkatsq Hx Past Med/Social Hx: Reviewed and Corrections made Patient Social History Alcohol Use: Denies Use Recreational Drug Use: No Smoking Status: Current Everyday Smoker Type Used: Cigarettes Recent Foreign Travel: No Contact w/other who traveled: No Recent Infectious Disease Expo: No Immunizations Up To Date Date of Influenza Vaccine: Jan 30, 2019 Past Medical History Surgeries: Coronary Stent Cardiac: Heart Attack Reproductive: No Sexually Transmitted Disease: No HIV/AIDS: No Genitourinary: Prostate Problems, UTI-Chronic Gastrointestinal: Diverticulosis Musculoskeletal: Arthritis Endocrine: Diabetes, Insulin dep Cancer: Prostate History of Blood Disorders: No Adverse Reaction to Blood [place]: No Family History Alcoholism 03 FATHER Cancer 03 MOTHER (LUNG) Family history: Cardiovascular disease 03 FATHER Myocardial infarction 03 FATHER No Family History of: Abdominal aortic aneurysm Family history: Diabetes mellitus Family history: Gastrointestinal disease Family history: Thyroid disorder Kidney disease Prostate cancer Stroke No Pertinent Family Hx Review of Systems Constitutional: see HPI Physical Exam Physical Exam Vital Signs Vital Signs - First Documented 06/01/19 06/01/19 20:29 23:14 Temp 36.9 Pulse 94 Resp 18 B/P (MAP) 163/95 (117) Pulse Ox 97 O2 Delivery Room Air Capillary Refill : Less Than 3 Seconds Height, Weight, BMI Height: 5'8.00" Weight: 242lbs. 2.0oz. 109.295230cu; 33.52 BMI Method: General Appearance: No Apparent Distress, Obese Neck: Full Range of Motion, Normal Inspection Respiratory: Lungs Clear, Normal Breath Sounds, No Accessory Muscle Use, No Respiratory Distress, Other (Mild tachypnea respiratory rate 22) Cardiovascular: Regular Rate, Rhythm, No Edema, No Gallop, No JVD, No Murmur, Normal Peripheral Pulses Gastrointestinal: Normal Bowel Sounds, No Organomegaly, No Pulsatile Mass, Non Tender, Soft Extremity: Non Tender, No Pedal Edema Results Results/Procedures Labs Laboratory Tests 06/01/19 20:38 06/02/19 02:55 Patient resulted labs reviewed. Assessment/Plan Admission Diagnosis A/P 1. Left gluteal abscess possible early necrotizing fasciitis status post surgical incision and drainage and debridement continue broad-spectrum antibiotics culture pending. 2. Sepsis secondary to number 1 thus far not severe. 3. Type II diabetes mellitus with hyperglycemia secondary to noncompliance with insulin and overall diabetic care which is likely the major reason for number 1. Hyperglycemia improved overnight patient has been switched to basal and bolus insulin no evidence for DKA. Admission Status: Inpatient Order (span 2 midnights) Reason for Inpatient Admission: See admission diagnosis Critical Care Critically Ill Patient Clinical Quality Measures DVT/VTE Risk/Contraindication: Risk Factor Score Per Nursin RFS Level Per Nursing on Admit: 4+=Very High SAYDA YANES MD Jun 02, 2019 06:42
--- NOTE | 2019-06-02 07:01 | Diagnostic Imaging Report ---
INDICATION: Central line placement. TIME OF EXAM: 1:01 AM Correlation is made with prior chest from 10/30/2013. Heart is enlarged. A right IJ line has tip overlying the right atrium. No pneumothorax is seen. There is some central congestion. IMPRESSION: Central line placement, as described. Dictated by: Dictated on workstation # [id number]
--- NOTE | 2019-06-02 07:29 | NUR ---
VANCOMYCIN DOSING SCR 1.27; CRCL ~ 69; VANC 1 GM GIVEN LAST NIGHT - VANC 15 MG/KG X 100 KG ~ 1500 MG Q12H CHECK TROUGH LEVEL 06/03 06 HOLD DOSE AND CONTACT PHARMACY IF LEVEL IS GREATER THAN 20
--- NOTE | 2019-06-02 08:25 | NUR ---
This nurse notified of patients temperature of 38.4, order received for Tylenol 1gm Q6H PRN for mild pain and fever
[2019-06-02] MEDS: VANCOMYCIN 1500 MG/NS 500 ML IVPB IV SCH ×4 (08:30→19:42)
[2019-06-02] MEDS ORDERED: DAKIN'S 1/4 STRENGTH (0.125%) 473 ML BTL TOP SCH (09:00)
[2019-06-02] MEDS: ACETAMINOPHEN 500 MG TAB (TYLENOL) PO PRN ×2 (09:00→19:45)
--- NOTE | 2019-06-02 09:15 | NUR ---
this nurse notified of patients temperature of 38.4c verbal orders received to order 1/4 strength daikens solution
--- NOTE | 2019-06-02 09:30 | Anesthesia-General Post-Op ---
General Patient Condition Mental Status/LOC: Same as Preop Cardiovascular: Satisfactory Nausea/Vomiting: Absent Respiratory: Satisfactory Pain: Controlled Complications: Absent Post Op Complications Complications None Follow Up Care/Instructions Patient Instructions None needed. Anesthesia/Patient Condition Patient Condition Patient is doing well, no complaints, stable vital signs, no apparent adverse anesthesia problems. No complications reported per nursing. D/C home per [facility] Criteria: Yes ROBBI BELTRÁN CRNA Jun 02, 2019 09:29
--- NOTE | 2019-06-02 09:51 | NUR ---
Verbal order received from to order Casodex 50mg from reconciled medication list, stated that patient could take his Casodex from home.
[2019-06-02] MEDS ORDERED: PATIENT MAY USE OWN MED,SINGLE MED PO SCH (10:00)
--- NOTE | 2019-06-02 10:00 | NUR ---
This nurse and at bedside changing dressing to right buttock. Order received to change dressing BID. dressing changed att with wet kerlix with 1/4 dakins solution packed into right buttock wound covered with dry 4x4 and abd pad, medipore tape over dressing.
--- NOTE | 2019-06-02 11:02 | NUR ---
Patient and his family at bedside state to this nurse that he does not take Casodex any more. notified. Casodex removed from [facility]
--- NOTE | 2019-06-02 14:46 | Progress Note - Surgery ---
Subjective Date Seen by a Provider: Jun 02, 2019 Time Seen by a Provider: 10:27 Subjective/Events-last exam Patient feeling better. Pain controlled. WBC slightly improved. Fever overnight. Denies n/v fever sweats chills shortness of breath or chest pain. Wound minimal drainage. Focused Exam Lactate Level 06/01/19 22:00: Lactic Acid Level 3.60*H 06/02/19 02:55: Lactic Acid Level 1.57 Objective Exam Vital Signs Date Time Temp Pulse Resp B/P (MAP) Pulse Ox O2 Delivery O2 Flow Rate FiO2 06/02/19 14:00 70 103/63 (76) 100 Room Air 06/02/19 13:53 100 Room Air 06/02/19 13:00 73 06/02/19 13:00 73 98/60 (73) 100 Room Air 06/02/19 12:00 74 96/65 (75) 100 Room Air 06/02/19 12:00 99 Room Air 06/02/19 12:00 36.5 06/02/19 11:30 36.9 06/02/19 11:00 76 93/56 (68) 100 Room Air 06/02/19 10:00 37.7 06/02/19 10:00 85 110/84 (93) 100 Room Air 06/02/19 09:30 37.7 06/02/19 09:00 38.2 06/02/19 09:00 87 106/65 (79) 100 Room Air 06/02/19 09:00 38.2 06/02/19 08:00 86 112/68 (83) 100 Room Air 06/02/19 08:00 99 Room Air 06/02/19 07:00 87 37 107/64 (78) 97 Room Air 06/02/19 07:00 88 06/02/19 06:00 86 25 102/62 (75) 99 Room Air 06/02/19 05:00 87 24 112/56 (74) 100 Room Air 06/02/19 04:00 83 23 111/62 (78) 100 Room Air 06/02/19 04:00 100 Room Air 06/02/19 04:00 36.9 06/02/19 03:31 36.9 93 97 06/02/19 03:12 100 Room Air 06/02/19 03:00 82 23 107/58 (74) 100 Room Air 06/02/19 02:15 Room Air 06/02/19 02:00 84 22 93/70 (78) 100 OxyMask 5.00 06/02/19 01:50 37.4 24 135/74 (94) 100 Simple Mask 8 06/02/19 01:50 Simple Mask 8 06/02/19 01:45 84 25 135/74 (94) 100 OxyMask 5.00 06/02/19 01:40 24 119/86 (97) 100 Simple Mask 8 06/02/19 01:30 82 18 119/66 (83) 100 OxyMask 5.00 06/02/19 01:30 24 104/60 (75) 100 Simple Mask 8 06/02/19 01:30 Simple Mask 8 06/02/19 01:20 24 110/62 (78) 100 Simple Mask 8 06/02/19 01:15 81 23 110/62 (78) 100 OxyMask 5.00 06/02/19 01:15 Simple Mask 8 06/02/19 01:10 24 100/62 (75) 100 Simple Mask 8 06/02/19 01:00 24 106/61 (76) 100 Simple Mask 8 06/02/19 01:00 37.4 82 26 106/61 (76) 100 OxyMask 5.00 06/02/19 01:00 Simple Mask 8 06/02/19 00:50 83 06/02/19 00:46 Simple Mask 8 06/02/19 00:46 37.2 22 91/59 (70) 99 Simple Mask 8 06/01/19 23:14 36.9 93 18 153/90 (117) 97 06/01/19 20:29 36.9 94 18 163/95 (117) Room Air I & O 06/02/19 07:00 Intake Total 2500 ml Output Total 1300 ml Balance 1200 ml Capillary Refill : Less Than 3 Seconds General Appearance: No Apparent Distress, Obese HEENT: PERRL/EOMI Neck: Full Range of Motion, Normal Inspection Respiratory: Chest Non Tender, No Accessory Muscle Use, No Respiratory Distress, Other (Mild tachypnea respiratory rate 22) Cardiovascular: Regular Rate, Rhythm, No Edema, No Gallop, No JVD, No Murmur Gastrointestinal: non tender, soft, hernia (large ventral) Extremity: Non Tender, No Pedal Edema Neurologic/Psychiatric: Alert, Oriented x3, Normal 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, 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 Skin: Other (less erythema right buttock, open wound, scant drainage, tissue appears healthy) Lymphatic: No Adenopathy Results Lab Laboratory Tests 06/01/19 20:38: White Blood Count 13.5H, Red Blood Count 5.72, Hemoglobin 15.2, Hematocrit 44, Mean Corpuscular Volume 78L, Mean Corpuscular Hemoglobin 27, Mean Corpuscular Hemoglobin Concent 34, Red Cell Distribution Width 13.6, Platelet Count 284, Mean Platelet Volume 9.1, Neutrophils (%) (Auto) 92H, Lymphocytes (%) (Auto) 5L, Monocytes (%) (Auto) 3, Eosinophils (%) (Auto) 0, Basophils (%) (Auto) 0, Neutrophils # (Auto) 12.4H, Lymphocytes # (Auto) 0.6L, Monocytes # (Auto) 0.5, Eosinophils # (Auto) 0.0, Basophils # (Auto) 0.0, Neutrophils % (Manual) 85, Lymphocytes % (Manual) 4, Monocytes % (Manual) 3, Band Neutrophils 8, Blood Morphology Comment NORMAL, Sodium Level 129L, Potassium Level 4.3, Chloride Level 90L, Carbon Dioxide Level 21, Anion Gap 18H, Blood Urea Nitrogen 24H, Creatinine 1.88H, Estimat Glomerular Filtration Rate 37, BUN/Creatinine Ratio 13, Glucose Level 700*H, Calcium Level 9.7, Corrected Calcium 10.4H, Total Bilirubin 0.6, Aspartate Amino Transf (AST/SGOT) 50H, Alanine Aminotransferase (ALT/SGPT) 73H, Alkaline Phosphatase 164H, Total Protein 7.5, Albumin 3.1L, Beta-Hydroxybutyrate (Chem panel) 0.05 06/01/19 20:52: Glucometer > 600*H 06/01/19 21:13: Urine Color YELLOW, Urine Clarity CLEAR, Urine pH 5.5, Urine Specific [place] <=1.005, Urine Protein 1+H, Urine Glucose (UA) 3+H, Urine Ketones NEGATIVE, Urine Nitrite NEGATIVE, Urine Bilirubin NEGATIVE, Urine Urobilinogen 0.2, Urine Leukocyte Esterase NEGATIVE, Urine RBC (Auto) 2+H, Urine RBC 2-5H, Urine WBC 10- 25H, Urine Squamous Epithelial Cells RARE, Urine Crystals NONE, Urine Bacteria LARGEH, Urine Casts NONE, Urine Mucus NEGATIVE, Urine Culture Indicated YES 06/01/19 22:00: Lactic Acid Level 3.60*H 06/01/19 22:06: Glucometer 402*H 06/02/19 00:55: Glucometer 455*H 06/02/19 02:02: Glucometer 238H 06/02/19 02:55: White Blood Count 11.6H, Red Blood Count 5.00, Hemoglobin 13.3, Hematocrit 39L, Mean Corpuscular Volume 78L, Mean Corpuscular Hemoglobin 27, Mean Corpuscular Hemoglobin Concent 34, Red Cell Distribution Width 13.4, Platelet Count 224, Mean Platelet Volume 8.9, Neutrophils (%) (Auto) 87H, Lymphocytes (%) (Auto) 7L, Monocytes (%) (Auto) 6, Eosinophils (%) (Auto) 0, Basophils (%) (Auto) 0, Neutrophils # (Auto) 10.1H, Lymphocytes # (Auto) 0.8L, Monocytes # (Auto) 0.7, Eosinophils # (Auto) 0.0, Basophils # (Auto) 0.0, Sodium Level 136, Potassium Level 4.0, Chloride Level 100, Carbon Dioxide Level 24, Anion Gap 12, Blood Urea Nitrogen 22H, Creatinine 1.27, Estimat Glomerular Filtration Rate 58, BUN/Creatinine Ratio 17, Glucose Level 223H, Lactic Acid Level 1.57, Calcium Level 8.4L, Corrected Calcium 9.6, Phosphorus Level 3.5, Magnesium Level 2.0, Total Bilirubin 0.5, Aspartate Amino Transf (AST/SGOT) 39H, Alanine Aminotransferase (ALT/SGPT) 54, Alkaline Phosphatase 126, Total Protein 6.0L, Albumin 2.5L 06/02/19 02:56: Glucometer 212H 06/02/19 04:02: Glucometer 187H 06/02/19 04:57: Glucometer 173H 06/02/19 12:07: Glucometer 75 Microbiology 06/01/19 Urine Culture - Preliminary, Resulted Probable Klebsiella/Enterobact 06/01/19 Blood Culture - Preliminary, Resulted Gram Negative Enrique See Comments Assessment/Plan Assessment/Plan Assessment/Plan right perirectal necrotizing soft tissue infection/cellulitis- s/p i and d, debridement loss of domain ventral hernia enlarged retroperitoneal lymphadenopathy, may be secondary to infection diabetes, uncontrolled patient understands if necrotizing infection high risk for poor outcome even with surgical intervention understands may need further surgical intervention Antibiotics Zosyn/Vanc/Clindamycin Will need continued packing/wound care 1/4 strength Dakins and Kerlex BID Control of diabetes Continue to monitor closely. Clinical Quality Measures DVT/VTE Risk/Contraindication: Risk Factor Score Per Nursin RFS Level Per Nursing on Admit: 4+=Very High MONTY GAO DO Jun 02, 2019 14:46
[2019-06-02] MEDS ORDERED: VANCOMYCIN 1 GM/NS 250 ML IVPB IV SCH ×2 (21:00)
[2019-06-02] MEDS: DAKIN'S 1/4 STRENGTH (0.125%) 473 ML BTL TOP SCH (21:25)
[2019-06-03] VITALS (10 sets, daily range): BP systolic 97–154; BP diastolic 64–94
[2019-06-03] MEDS: LACTATED RINGERS 1,000 ML IV SCH ×4 (01:00→18:34)
[2019-06-03 03:22] LABS: BASOPHILS % (AUTO) 0 % (0-10); EOSINOPHILS # (AUTO) 0.1 10^3/uL (0.0-0.3); EOSINOPHILS % (AUTO) 1 % (0-10); HEMATOCRIT 38 % (40-54); HEMOGLOBIN 12.9 G/DL (13.3-17.7); LYMPHOCYTES # (AUTO) 0.7 X 10^3 (1.0-4.0); LYMPHOCYTES % (AUTO) 6 % (12-44); MEAN CORPUSCULAR HEMOGLOBIN 27 PG (25-34); MEAN CORPUSCULAR HGB CONC 34 G/DL (32-36); MEAN CORPUSCULAR VOLUME 80 FL (80-99); MEAN PLATELET VOLUME 9.1 FL (7.4-10.4); MONOCYTES # (AUTO) 0.6 X 10^3 (0.0-1.0); MONOCYTES % (AUTO) 5 % (0-12); NEUTROPHILS # (AUTO) 10.7 X 10^3 (1.8-7.8); NEUTROPHILS % (AUTO) 88 % (42-75); PLATELET COUNT 185 10^3/uL (130-400); RED CELL DISTRIBUTION WIDTH 13.8 % (10.0-14.5); WHITE BLOOD COUNT 12.1 10^3/uL (4.3-11.0)
[2019-06-03] MEDS: PIPERACILLIN/TAZO 4.5 GM/NS 100 ML IV SCH ×6 (03:33→20:55)
[2019-06-03 03:40] LABS: BUN/CREATININE RATIO 16; CALCIUM 7.9 MG/DL (8.5-10.1); CARBON DIOXIDE 24 MMOL/L (21-32); CHLORIDE 100 MMOL/L (98-107); CREATININE SERUM 1.14 MG/DL (0.60-1.30); GFR ESTIMATED > 60; GLUCOSE 151 MG/DL (70-105); MAGNESIUM 1.8 MG/DL (1.6-2.4); PHOSPHORUS 2.9 MG/DL (2.3-4.7); POTASSIUM 3.8 MMOL/L (3.6-5.0); SODIUM 134 MMOL/L (135-145)
[2019-06-03] MEDS: POTASSIUM CL 10MEQ/50ML IVPB 50 ML IV SCH (03:50)
[2019-06-03] MEDS: KCL 20 MEQ TAB (K-DUR) PO SCH (03:50)
[2019-06-03] MEDS: MAGNESIUM 1 GM/100 ML IVPB 100 ML IV SCH (03:50)
--- NOTE | 2019-06-03 05:10 | Pulmonary Progress Note ---
Subjective Time Seen by a Provider: 05:04 Subjective/Events-last exam No complications noted. Sepsis Event Evaluation Height, Weight, BMI Height: 5'8.00" Weight: 242lbs. 2.0oz. 109.336741xf; 33.52 BMI Method: Focused Exam Lactate Level 06/01/19 22:00: Lactic Acid Level 3.60*H 06/02/19 02:55: Lactic Acid Level 1.57 Exam Exam Vital Signs Date Time Temp Pulse Resp B/P (MAP) Pulse Ox O2 Delivery O2 Flow Rate FiO2 06/03/19 04:00 87 23 116/71 (86) 100 Room Air 06/03/19 04:00 100 Room Air 06/03/19 03:32 36.3 06/03/19 03:00 77 16 113/76 (88) 100 Room Air 06/03/19 02:00 71 21 105/70 (82) 100 Room Air 06/03/19 01:00 73 18 103/67 (79) 100 Room Air 06/03/19 01:00 73 06/03/19 00:00 71 13 97/64 (75) 100 Room Air 06/03/19 00:00 100 Room Air 06/02/19 23:00 78 25 93/54 (67) 100 Room Air 06/02/19 22:00 37.5 06/02/19 22:00 81 18 109/69 (82) 96 Room Air 06/02/19 21:00 86 25 107/63 (78) 98 Room Air 06/02/19 20:00 100 Room Air 06/02/19 20:00 85 23 116/74 (88) 100 Room Air 06/02/19 20:00 37.8 06/02/19 19:00 84 06/02/19 19:00 84 110/69 (83) 99 Room Air 06/02/19 18:00 81 115/67 (83) 99 Room Air 06/02/19 17:00 74 113/81 (92) 100 Room Air 06/02/19 16:00 36.6 06/02/19 16:00 73 84/56 (65) 100 Room Air 06/02/19 16:00 100 Room Air 06/02/19 15:00 68 95/59 (71) 100 Room Air 06/02/19 14:00 70 103/63 (76) 100 Room Air 06/02/19 13:53 100 Room Air 06/02/19 13:00 73 06/02/19 13:00 73 98/60 (73) 100 Room Air 06/02/19 12:00 74 96/65 (75) 100 Room Air 06/02/19 12:00 99 Room Air 06/02/19 12:00 36.5 06/02/19 11:30 36.9 06/02/19 11:00 76 93/56 (68) 100 Room Air 06/02/19 10:00 37.7 06/02/19 10:00 85 110/84 (93) 100 Room Air 06/02/19 09:30 37.7 06/02/19 09:00 38.2 06/02/19 09:00 87 106/65 (79) 100 Room Air 06/02/19 09:00 38.2 06/02/19 08:00 86 112/68 (83) 100 Room Air 06/02/19 08:00 99 Room Air 06/02/19 07:00 87 37 107/64 (78) 97 Room Air 06/02/19 07:00 88 06/02/19 06:00 86 25 102/62 (75) 99 Room Air I & O 06/03/19 07:00 Intake Total 3995 ml Output Total 1775 ml Balance 2220 ml Height & Weight Height: 5'8.00" Weight: 242lbs. 2.0oz. 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 Continue daily labs and close monitoring. Transfer to 4th floor when ok with surgery. SANDY CHASE DO Jun 03, 2019 05:10
[2019-06-03] MEDS: inSUlin ASPART (NovoLOG) 1 UNIT/0.01 ML (CHARGE PER UNIT) SC SCH ×4 (05:20→20:55)
[2019-06-03] MEDS: CLINDAMYCIN 900 MG/50 ML IVPB 50 ML IV SCH ×3 (05:58→21:35)
[2019-06-03] MEDS ORDERED: TROUGH ORDER-PHARMACY XX NR (06:30)
[2019-06-03] MEDS ORDERED: BICALUTAMIDE 50 MG PO SCH (09:00)
--- NOTE | 2019-06-03 09:10 | Diagnostic Imaging Report ---
Clinical indications: Patient with necrotizing cellulitis. Postop. Exam: Portable chest x-ray upright view. Comparisons: Chest x-ray dated 06/02/2019. Findings: Right IJ central line seen in stable good position. Lungs/pleura: There is mild bibasilar atelectasis. Otherwise, lungs are clear. There is no pneumothorax. There is no pleural effusion. Mediastinum: Unremarkable. Pulmonary vasculature: Unremarkable. Heart: Unremarkable. Bones/extrathoracic soft tissue: Unremarkable. Impression: There is mild bibasilar atelectasis. Otherwise, there is no radiographic evidence of acute cardiopulmonary process. Dictated by: Dictated on workstation # [id number]
[2019-06-03] MEDS: DAKIN'S 1/4 STRENGTH (0.125%) 473 ML BTL TOP SCH ×2 (10:27→21:46)
[2019-06-03] MEDS: ACETAMINOPHEN 500 MG TAB (TYLENOL) PO PRN ×2 (11:48→21:02)
--- NOTE | 2019-06-03 13:57 | Progress Note - Hospitalist ---
Subjective HPI/CC On Admission Date Seen by Provider: Jun 03, 2019 Time Seen by Provider: 06:30 ER by private vehicle with a few days of urinary frequency, suprapubic abdominal pain. General malaise, hyperglycemia area sugar was as high as 500 earlier today. He has a history of diverticulitis with "fistulas" (unclear where). He's been on 2 different rounds of antibiotics since 05/10/19 without any improvement in his symptoms. Patient sleeping this morning upon arousal less pain noted. He has a fentanyl patch on nurses only had to give 1 dose of narcotic through the night. No chest pain or shortness of breath reported. Subjective/Events-last exam patient feeling a little better pain control reasonable blood sugar control is been good. He denies chest pain or shortness of breath. Focused Exam Lactate Level 06/01/19 22:00: Lactic Acid Level 3.60*H 06/02/19 02:55: Lactic Acid Level 1.57 Objective Exam Vital Signs Vital Signs Date Time Temp Pulse Resp B/P (MAP) Pulse Ox O2 Delivery O2 Flow Rate FiO2 06/03/19 12:00 38.3 06/03/19 12:00 100 Room Air 06/03/19 12:00 90 18 134/80 (98) 06/02/19 02:00 5.00 Capillary Refill : Less Than 3 Seconds General Appearance: No Apparent Distress Respiratory: Chest Non Tender, Lungs Clear, Normal Breath Sounds, No Accessory Muscle Use, No Respiratory Distress Cardiovascular: Regular Rate, Rhythm, No Edema, No Gallop, No JVD, No Murmur, Normal Peripheral Pulses Gastrointestinal: Normal Bowel Sounds, No Organomegaly, No Pulsatile Mass, Non Tender, Soft Results/Procedures Lab Laboratory Tests 06/03/19 03:15 Patient resulted labs reviewed. Assessment/Plan Assessment and Plan Assess & Plan/Chief Complaint A/P 1. Left gluteal abscess possible early necrotizing fasciitis status post surgical incision and drainage and debridement. patient growing Klebsiella from blood no evidence for MRSA will discontinue vancomycin and continue Zosyn. Either Dr. Correa her Anel of added clindamycin as well.. 2. Sepsis secondary to number 1 thus far not severe. 3. Type II diabetes mellitus with hyperglycemia secondary to noncompliance with insulin and overall diabetic care which is likely the major reason for number 1. Hyperglycemia improved overnight patient has been switched to basal and bolus insulin no evidence for DKA. Critical Care Critically Ill Patient Clinical Quality Measures DVT/VTE Risk/Contraindication: Risk Factor Score Per Nursin RFS Level Per Nursing on Admit: 4+=Very High SAYDA YANES MD Jun 03, 2019 13:57
[2019-06-03] MEDS: fentaNYL INJECTION 100 MCG/2 ML AMP IV PRN (14:09)
--- NOTE | 2019-06-03 15:20 | NUR ---
Patient having pain from wound on buttocks and chronic pain in abdomen. 72hr fentanyl patch in place, Tylenol and 50mcg fentanyl given per PRN orders. This nurse notified of patients uncontrolled pain. Order received for 2mg Morphine IVP Q2H PRN for pain.
--- NOTE | 2019-06-03 15:32 | Progress Note - Surgery ---
[facility] [place] 06/03/19 1532: Subjective Date Seen by a Provider: Jun 03, 2019 Time Seen by a Provider: 13:44 Subjective/Events-last exam Pt lying in bed. Denies any sx at this time including abd pain, Nausea, vomiting, abd pain, fever, chills, and SOB. Review of Systems General: No Chills, No Fatigue Pulmonary: No Dyspnea, No Cough Cardiovascular: No: Chest Pain, Palpitations Gastrointestinal: No: Nausea, Vomiting, Diarrhea, Constipation Focused Exam Lactate Level 06/01/19 22:00: Lactic Acid Level 3.60*H 06/02/19 02:55: Lactic Acid Level 1.57 Objective Exam Vital Signs Date Time Temp Pulse Resp B/P (MAP) Pulse Ox O2 Delivery O2 Flow Rate FiO2 06/03/19 14:30 36.6 06/03/19 13:00 88 06/03/19 12:45 37.8 06/03/19 12:00 38.3 06/03/19 12:00 100 Room Air 06/03/19 12:00 90 18 134/80 (98) 100 Room Air 06/03/19 08:00 100 Room Air 06/03/19 08:00 86 8 108/66 (80) 100 Room Air 06/03/19 07:30 37.0 06/03/19 07:00 80 06/03/19 04:00 87 23 116/71 (86) 100 Room Air 06/03/19 04:00 100 Room Air 06/03/19 03:32 36.3 06/03/19 03:00 77 16 113/76 (88) 100 Room Air 06/03/19 02:00 71 21 105/70 (82) 100 Room Air 06/03/19 01:00 73 18 103/67 (79) 100 Room Air 06/03/19 01:00 73 06/03/19 00:00 71 13 97/64 (75) 100 Room Air 06/03/19 00:00 100 Room Air 06/02/19 23:00 78 25 93/54 (67) 100 Room Air 06/02/19 22:00 37.5 06/02/19 22:00 81 18 109/69 (82) 96 Room Air 06/02/19 21:00 86 25 107/63 (78) 98 Room Air 06/02/19 20:00 100 Room Air 06/02/19 20:00 85 23 116/74 (88) 100 Room Air 06/02/19 20:00 37.8 06/02/19 19:00 84 06/02/19 19:00 84 110/69 (83) 99 Room Air 06/02/19 18:00 81 115/67 (83) 99 Room Air 06/02/19 17:00 74 113/81 (92) 100 Room Air 06/02/19 16:00 36.6 06/02/19 16:00 73 84/56 (65) 100 Room Air 06/02/19 16:00 100 Room Air I & O 06/03/19 07:00 Intake Total 4245 ml Output Total 2625 ml Balance 1620 ml Capillary Refill : Less Than 3 Seconds General Appearance: No Apparent Distress HEENT: PERRL/EOMI Neck: Full Range of Motion, Normal Inspection Respiratory: Chest Non Tender, Lungs Clear, Normal Breath Sounds, No Accessory Muscle Use, No Respiratory Distress Cardiovascular: Regular Rate, Rhythm, Normal Peripheral Pulses Gastrointestinal: non tender, soft, hernia (large ventral) Extremity: Non Tender, No Pedal Edema, Other Neurologic/Psychiatric: Alert, Oriented x3, Normal Mood/Affect, convention services manager II-XII Norm as Tested Skin: Normal Color, Other (less erythema right buttock, open wound, scant drainage, tissue appears healthy, irrigated wound w/ NS and repacked ) Lymphatic: No Adenopathy Results Lab Laboratory Tests 06/02/19 16:42: Glucometer 65L 06/02/19 16:58: Glucometer 106 06/02/19 21:01: Glucometer 159H 06/03/19 03:15: White Blood Count 12.1H, Red Blood Count 4.79, Hemoglobin 12.9L, Hematocrit 38L, Mean Corpuscular Volume 80, Mean Corpuscular Hemoglobin 27, Mean Corpuscular Hemoglobin Concent 34, Red Cell Distribution Width 13.8, Platelet Count 185, Mean Platelet Volume 9.1, Neutrophils (%) (Auto) 88H, Lymphocytes (%) (Auto) 6L, Monocytes (%) (Auto) 5, Eosinophils (%) (Auto) 1, Basophils (%) (Auto) 0, Neutrophils # (Auto) 10.7H, Lymphocytes # (Auto) 0.7L, Monocytes # (Auto) 0.6, Eosinophils # (Auto) 0.1, Basophils # (Auto) 0.0, Sodium Level 134L, Potassium Level 3.8, Chloride Level 100, Carbon Dioxide Level 24, Anion Gap 10, Blood Urea Nitrogen 18, Creatinine 1.14, Estimat Glomerular Filtration Rate > 60, BUN/Creatinine Ratio 16, Glucose Level 151H, Calcium Level 7.9L, Phosphorus Level 2.9, Magnesium Level 1.8 06/03/19 06:40: Vancomycin Level Trough 19.7 06/03/19 11:34: Glucometer 214H Microbiology 06/02/19 MRSA Screen - Final, Complete 06/02/19 Gram Stain - Final, Resulted 06/02/19 Anaerobic Culture, Resulted Pending 06/02/19 Wound Culture - Preliminary, Resulted 06/01/19 Blood Culture - Preliminary, Resulted Klebsiella pneumoniae 06/01/19 Urine Culture - Final, Complete Klebsiella pneumoniae Assessment/Plan Assessment/Plan Assessment/Plan right perirectal necrotizing soft tissue infection/cellulitis- s/p i and d, debridement, irrigated and repacked wound, NPO after midnight incase further debridement is needed tomorrow loss of domain ventral hernia enlarged retroperitoneal lymphadenopathy, may be secondary to infection diabetes, uncontrolled patient understands if necrotizing infection high risk for poor outcome even with surgical intervention understands may need further surgical intervention Antibiotics Zosyn/Vanc/Clindamycin, continued leukocytosis Will need continued packing/wound care 1/ strength Dakins and Kerlex BID Control of diabetes Repeat labs in AM, Continue to monitor closely. Clinical Quality Measures DVT/VTE Risk/Contraindication: Risk Factor Score Per Nursin RFS Level Per Nursing on Admit: 4+=Very High MONTY TAM DO 06/03/19 8544: Subjective Subjective/Events-last exam Feeling better. Wound packed. Minimal drainage. WBC slightly up from yesterday. Deneis n/v fever sweats chills shortness of breath or chest pain. Objective Exam General Appearance: No Apparent Distress HEENT: PERRL/EOMI Neck: Full Range of Motion, Normal Inspection Respiratory: Chest Non Tender, No Accessory Muscle Use, No Respiratory Distress Cardiovascular: Regular Rate, Rhythm Gastrointestinal: non tender, soft, hernia (large ventral) Extremity: Non Tender Neurologic/Psychiatric: Alert, Oriented x3, Normal Mood/Affect, convention services manager II-XII Norm as Tested Skin: Normal Color, Other (less erythema right buttock, open wound, scant drainage, tissue appears healthy, irrigated wound w/ NS and repacked ) Lymphatic: No Adenopathy Assessment/Plan Assessment/Plan Assessment/Plan right perirectal necrotizing soft tissue infection/cellulitis- s/p i and d, debridement, irrigated and repacked wound, NPO after midnight incase further debridement is needed tomorrow loss of domain ventral hernia enlarged retroperitoneal lymphadenopathy, may be secondary to infection diabetes, uncontrolled continue antibiotics Supervisory-Addendum Brief Verification & Attestation Participated in pt care: history, MDM, physical Personally performed: exam, history, MDM, supervision of care Care discussed with: Medical Student Procedures: n/a Results interpretation: Verified all documentation Verification and Attestation of Medical Student E/M Service A medical student performed and documented this service in my presence. I reviewed and verified all information documented by the medical student and made modifications to such information, when appropriate. I personally performed the physical exam and medical decision making. Monty Tam, Jun 03, 2019,15:54 [facility] [place] Jun 03, 2019 15:32 MONTY TAM DO Jun 03, 2019 15:54
[2019-06-03] MEDS: morphine INJ 4 MG/ML 1 ML (VIAL/SYRINGE) IVP PRN ×3 (15:55→22:57)
--- NOTE | 2019-06-03 21:10 | NUR ---
PT APPEARS TO BE IN A-FLUTTER ON MONITOR. EKG CONFIRMS A-FLUTTER. 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 GAO NOTIFIED, ORDERS RECEIVED TO NOTIFY MEDICAL DOCTOR BUT IF THEY WANT PATIENT PLACED ON ANTICOAGULATIONS, HEPARIN WOULD BE PREFERRED. DR. YANES NOTIFIED OF NEW ONSET A-FLUTTER AND RATE OF 90'S-110. NO NEW ORDERS.
[2019-06-04] VITALS (23 sets, daily range): BP systolic 91–188; BP diastolic 66–110
[2019-06-04] MEDS: morphine INJ 4 MG/ML 1 ML (VIAL/SYRINGE) IVP PRN ×2 (01:00→03:02)
[2019-06-04] MEDS: LACTATED RINGERS 1,000 ML IV SCH ×3 (01:30→16:03)
[2019-06-04] MEDS: PIPERACILLIN/TAZO 4.5 GM/NS 100 ML IV SCH ×6 (03:28→18:43)
[2019-06-04 03:43] LABS: BASOPHILS % (AUTO) 0 % (0-10); EOSINOPHILS # (AUTO) 0.2 10^3/uL (0.0-0.3); EOSINOPHILS % (AUTO) 2 % (0-10); HEMATOCRIT 40 % (40-54); HEMOGLOBIN 13.3 G/DL (13.3-17.7); LYMPHOCYTES % (AUTO) 9 % (12-44); MEAN CORPUSCULAR HEMOGLOBIN 26 PG (25-34); MEAN CORPUSCULAR HGB CONC 33 G/DL (32-36); MEAN CORPUSCULAR VOLUME 80 FL (80-99); MEAN PLATELET VOLUME 9.7 FL (7.4-10.4); MONOCYTES # (AUTO) 0.6 X 10^3 (0.0-1.0); MONOCYTES % (AUTO) 5 % (0-12); NEUTROPHILS # (AUTO) 9.1 X 10^3 (1.8-7.8); NEUTROPHILS % (AUTO) 84 % (42-75); PLATELET COUNT 185 10^3/uL (130-400); RED CELL DISTRIBUTION WIDTH 13.8 % (10.0-14.5); WHITE BLOOD COUNT 10.8 10^3/uL (4.3-11.0)
[2019-06-04 04:04] LABS: BUN/CREATININE RATIO 15; CALCIUM 7.8 MG/DL (8.5-10.1); CARBON DIOXIDE 25 MMOL/L (21-32); CHLORIDE 102 MMOL/L (98-107); CREATININE SERUM 0.97 MG/DL (0.60-1.30); GFR ESTIMATED > 60; GLUCOSE 134 MG/DL (70-105); MAGNESIUM 1.9 MG/DL (1.6-2.4); PHOSPHORUS 2.7 MG/DL (2.3-4.7); POTASSIUM 3.8 MMOL/L (3.6-5.0); SODIUM 136 MMOL/L (135-145)
[2019-06-04] MEDS: inSUlin ASPART (NovoLOG) 1 UNIT/0.01 ML (CHARGE PER UNIT) SC SCH ×4 (04:05→21:50)
[2019-06-04] MEDS: POTASSIUM CL 10MEQ/50ML IVPB 50 ML IV SCH (04:05)
[2019-06-04] MEDS: MAGNESIUM 1 GM/100 ML IVPB 100 ML IV SCH (04:06)
[2019-06-04] MEDS: KCL 20 MEQ TAB (K-DUR) PO SCH (04:06)
[2019-06-04] MEDS ORDERED: PHARMACY TO DOSE IV SCH (04:45)
[2019-06-04] MEDS ORDERED: POTASSIUM PHOSPHATE INJ 15 MM in NS (IVPB) 250 ML IV ONE (04:45)
[2019-06-04] MEDS ORDERED: morphine PCA 100 MG/100 ML BAG IV ONE (05:00)
--- NOTE | 2019-06-04 05:03 | Pulmonary Progress Note ---
Subjective Time Seen by a Provider: 04:58 Subjective/Events-last exam Pt is going back to surgery today, Sepsis Event Evaluation Height, Weight, BMI Height: 5'8.00" Weight: 242lbs. 2.0oz. [id number]; 33.52 BMI Method: Focused Exam Lactate Level 06/01/19 22:00: Lactic Acid Level 3.60*H 06/02/19 02:55: Lactic Acid Level 1.57 Exam Exam Vital Signs Date Time Temp Pulse Resp B/P (MAP) Pulse Ox O2 Delivery O2 Flow Rate FiO2 06/04/19 04:00 Room Air 06/04/19 03:15 98 22 140/103 (115) 97 Room Air 06/04/19 01:03 36.1 81 20 135/84 (101) 100 Room Air 06/04/19 01:00 78 20 135/84 (101) 100 Room Air 06/04/19 01:00 95 06/04/19 00:00 Room Air 06/03/19 22:46 117 25 118/82 (94) 98 Room Air 06/03/19 21:02 38.3 06/03/19 21:00 37.0 06/03/19 20:00 Room Air 06/03/19 19:55 38.3 101 26 154/94 (114) 100 Room Air 06/03/19 19:00 103 06/03/19 18:52 100 Room Air 06/03/19 16:00 100 Room Air 06/03/19 16:00 36.5 06/03/19 16:00 113 24 104/67 (79) 100 Room Air 06/03/19 14:30 36.6 06/03/19 13:00 88 06/03/19 12:45 37.8 06/03/19 12:00 38.3 06/03/19 12:00 100 Room Air 06/03/19 12:00 90 18 134/80 (98) 100 Room Air 06/03/19 08:00 100 Room Air 06/03/19 08:00 86 8 108/66 (80) 100 Room Air 06/03/19 07:30 37.0 06/03/19 07:00 80 I & O 06/04/19 07:00 Intake Total 3770 ml Output Total 2850 ml Balance 920 ml Height & Weight Height: 5'8.00" Weight: 242lbs. 2.0oz. [id number]; 33.52 BMI Method: General Appearance: No Apparent Distress HEENT: PERRL/EOMI Neck: Full Range of Motion, Normal Inspection Respiratory: Chest Non Tender, No Accessory Muscle Use, No Respiratory Distress Cardiovascular: Regular Rate, Rhythm Capillary Refill: Less Than 3 Seconds Gastrointestinal: non tender, soft, hernia (large ventral) Extremity: Non Tender Neurologic/Psychiatric: Alert, Oriented x3, Normal Mood/Affect, stencil sprayer II-XII Norm as Tested Skin: Normal Color, Other (less erythema right buttock, open wound, scant drai nage, tissue appears healthy, irrigated wound w/ NS and repacked ) Lymphatic: No Adenopathy Results Lab Laboratory Tests 06/03/19 03:15 06/04/19 03:30 Assessment/Plan Assessment/Plan right perirectal soft tissue infection/cellulitis concerning for necrotizing infection with air in soft tissues by ct scan s/p debridement Tm 38. 3 at 2100 last night -Continue Zosyn/Vanc/Clindamycin -Restart vancomycin secondary to concern of necrotizing fascitis, MRSA screen is positive and pt is going back to surgery today. Klebsiella bacteremia is from urine. -Pain control -surgery following UTI with Klebsiella Bacteremia secondary to UTI IDDM -Levemir changed to 5units QHS secondary to hypoglycemia -DM diet Hx of ASMITA -Obtain home machine if available SANDY SANCHEZ DO Jun 04, 2019 05:03
[2019-06-04] MEDS: morphine PCA 100 MG/100 ML BAG IV PRN (05:26)
[2019-06-04] MEDS: CLINDAMYCIN 900 MG/50 ML IVPB 50 ML IV SCH ×3 (06:08→21:36)
--- NOTE | 2019-06-04 07:20 | Diagnostic Imaging Report ---
Indication: Cellulitis. Comparison: 06/03/2019 Findings: Single view of the chest demonstrates cardiac enlargement without overt pulmonary edema. Chronic interstitial changes are present. Atelectasis persists but has decreased. There is no pneumothorax. The right IJ catheter is stable. Impression: Improving aeration both lung bases. Dictated by: Dictated on workstation # [id number]
[2019-06-04] MEDS: ACETAMINOPHEN 500 MG TAB (TYLENOL) PO PRN (07:34)
[2019-06-04] MEDS: VANCOMYCIN 1500 MG/NS 500 ML IVPB IV SCH ×4 (07:34→18:43)
[2019-06-04] MEDS: DAKIN'S 1/4 STRENGTH (0.125%) 473 ML BTL TOP SCH ×2 (08:16→21:26)
--- NOTE | 2019-06-04 09:30 | NUR ---
RIGHT BUTTOCK DRESSING CHANGED PER DR GAO'S ORDER. OLD DRESSING REMOVED BY WOUND PACKED W/ 05/05 STRENGTH DAKINS KERLIX, GAUZE, AND TAPED TO SECURE.
--- NOTE | 2019-06-04 09:42 | Consultation-Cardiology ---
HPI-Cardiology Cardiology Consultation Date of Consultation 06/04/19 Date of Admission Time Seen by Provider: 04:58 HPI 59-year-old gentleman with history of coronary artery disease, had stent placed about 2 years ago, no recent cardiac workup, admitted for perirectal abscess and necrotizing tissue, underwent surgical debridement, still having significant pain, possible another debridement today. Last night had a transient episode of atrial flutter, converted back to sinus rhythm, currently having left thigh pain. Appeared to be having discomfort in his thigh, no swelling. Home Medications & Allergies Allergies: Coded Allergies: No Known Drug Allergies (Unverified , 05/31/13) Home Medication List Reviewed: Yes [id number]-Taslah Hx Patient Social History Marital Status: Employed/Student: employed Alcohol Use: Denies Use Recreational Drug Use: No Smoking Status: Current Everyday Smoker Type Used: Cigarettes Recent Foreign Travel: No Recent Infectious Disease Expo: No Immunizations Up To Date Date of Influenza Vaccine: Jan 30, 2019 Past Medical History Discussed below Family Medical History Significant Family History: No Pertinent Family Hx Family History: Alcoholism 03 FATHER Cancer 03 MOTHER (LUNG) Family history: Cardiovascular disease 03 FATHER Myocardial infarction 03 FATHER No Family History of: Abdominal aortic aneurysm Family history: Diabetes mellitus Family history: Gastrointestinal disease Family history: Thyroid disorder Kidney disease Prostate cancer Stroke Review of Systems-General Review of Systems Constitutional: see HPI, fever, malaise EENTM: see HPI; No hearing loss, No blurred vision, No double vision Respiratory: see HPI; No cough, No dyspnea on exertion, No short of breath Cardiovascular: see HPI; No chest pain, No edema Gastrointestinal: see HPI; No heartburn, No vomiting; other (suprapubic pain) Genitourinary: see HPI Musculoskeletal: No back pain, No gout, No joint pain Skin: see HPI, change in color Psychiatric/Neurological: See HPI; Denies Anxiety, Denies Depressed Reviewed Test Results Reviewed Test Results Lab Laboratory Tests Test 06/03/19 11:34 06/03/19 15:27 06/03/19 15:58 06/03/19 20:28 Range/Units Glucometer 214 H 224 H 247 H 224 H 70-110 MG/DL Test 06/04/19 03:30 Range/Units White Blood Count 10.8 4.3-11.0 10^3/uL Red Blood Count 5.03 4.35-5.85 10^6/uL Hemoglobin 13.3 13.3-17.7 G/DL Hematocrit 40 40-54 % Mean Corpuscular Volume 80 80-99 FL Mean Corpuscular Hemoglobin 26 25-34 PG Mean Corpuscular Hemoglobin Concent 33 32-36 G/DL Red Cell Distribution Width 13.8 10.0-14.5 % Platelet Count 185 130-400 10^3/uL Mean Platelet Volume 9.7 7.4-10.4 FL Neutrophils (%) (Auto) 84 H 42-75 % Lymphocytes (%) (Auto) 9 L 12-44 % Monocytes (%) (Auto) 5 0-12 % Eosinophils (%) (Auto) 2 0-10 % Basophils (%) (Auto) 0 0-10 % Neutrophils # (Auto) 9.1 H 1.8-7.8 X 10^3 Lymphocytes # (Auto) 1.0 1.0-4.0 X 10^3 Monocytes # (Auto) 0.6 0.0-1.0 X 10^3 Eosinophils # (Auto) 0.2 0.0-0.3 10^3/uL Basophils # (Auto) 0.0 0.0-0.1 10^3/uL Sodium Level 136 135-145 MMOL/L Potassium Level 3.8 3.6-5.0 MMOL/L Chloride Level 102 98-107 MMOL/L Carbon Dioxide Level 25 21-32 MMOL/L Anion Gap 9 5-14 MMOL/L Blood Urea Nitrogen 15 7-18 MG/DL Creatinine 0.97 0.60-1.30 MG/DL Estimat Glomerular Filtration Rate > 60 BUN/Creatinine Ratio 15 Glucose Level 134 H 70-105 MG/DL Calcium Level 7.8 L 8.5-10.1 MG/DL Phosphorus Level 2.7 2.3-4.7 MG/DL Magnesium Level 1.9 1.6-2.4 MG/DL Physical Exam Physical Exam Vital Signs Vital Signs - First Documented 06/01/19 06/01/19 20:29 23:14 Temp 36.9 Pulse 94 Resp 18 B/P (MAP) 163/95 (117) Pulse Ox 97 O2 Delivery Room Air Capillary Refill : Less Than 3 Seconds Height, Weight, BMI Height: 5'8.00" Weight: 242lbs. 2.0oz. [id number]; 33.52 BMI Method: General Appearance: No Apparent Distress, Obese Eyes: Bilateral Eye Normal Inspection, Bilateral Eye PERRL, Bilateral Eye EOMI HEENT: PERRL/EOMI Neck: Full Range of Motion, Normal Inspection Respiratory: Chest Non Tender, No Accessory Muscle Use, No Respiratory Distress, Other (Mild tachypnea respiratory rate 22) Cardiovascular: Regular Rate, Rhythm, No Edema, No Gallop, No JVD, No Murmur Gastrointestinal: Normal Bowel Sounds, No Organomegaly, No Pulsatile Mass, Non Tender, Soft Back: Normal Inspection, No CVA Tenderness, No Vertebral Tenderness Extremity: Non Tender, No Pedal Edema Neurologic/Psychiatric: Alert, Oriented x3, Normal Mood/Affect, admissions consultant II-XII Norm as Tested Skin: Other (less erythema right buttock, open wound, scant drainage, tissue appears healthy) Lymphatic: No Adenopathy A/P-Cardiology Admission Diagnosis Atrial flutter Coronary artery disease Sepsis Diabetes mellitus Assessment/Plan Paroxysmal atrial flutter, had transient episode, returned to sinus rhythm, no previous history of arrhythmia. Continue to monitor on telemetry. Beta blockers and monitor. Coronary artery disease, history of stent done about 2 years ago, no recent cardiac workup, no active chest pain. No shortness of breath. Continue to monitor Perirectal abscess with possible early necrotizing fasciitis, treated aggressively, receiving antibiotic and had debridement, may require another debridement today. Managed by Dr. Tam Left thigh pain, no swelling. I will evaluate ultrasound Diabetes mellitus, followed and managed by primary care physician Clinical Quality Measures DVT/VTE Risk/Contraindication: Risk Factor Score Per Nursin RFS Level Per Nursing on Admit: 4+=Very High ANA MARIA LOVELL MD Jun 04, 2019 09:42
[2019-06-04] MEDS ORDERED: proPOfol 200 MG/20 ML (DIPRIVAN) VIAL IV ONE (10:28)
[2019-06-04] MEDS ORDERED: LIDOCAINE PF 2% 5 ML (XYLOCAINE) VIAL ONE (10:28)
[2019-06-04] MEDS ORDERED: ROCURONIUM 10 MG/ML 5 ML SYRINGE IV ONE (10:28)
[2019-06-04] MEDS ORDERED: SEVOFLURANE (ULTANE) 15 ML INHAL SOLN ONE (10:28)
[2019-06-04] MEDS ORDERED: fentaNYL INJECTION 100 MCG/2 ML AMP ONE (10:29)
[2019-06-04] MEDS ORDERED: CANA100T PO (10:29)
[2019-06-04] MEDS ORDERED: HYDR4TAB PO (10:29)
[2019-06-04] MEDS ORDERED: RT-ALBUINH INH (10:29)
[2019-06-04] MEDS ORDERED: MIDAZOLAM 2 MG/2 ML (VERSED) VIAL ONE (10:29)
[2019-06-04] MEDS ORDERED: INSU100I29 SC (10:29)
[2019-06-04] MEDS ORDERED: LISI-556 PO (10:29)
[2019-06-04] MEDS ORDERED: CARV3.122 PO (10:29)
[2019-06-04] MEDS ORDERED: APIX5TAB PO (10:29)
[2019-06-04] MEDS ORDERED: METF-399 PO (10:29)
[2019-06-04] MEDS ORDERED: FENT1PAT11 TD (10:29)
[2019-06-04] MEDS ORDERED: ATOR40TA70 PO (10:29)
[2019-06-04] MEDS ORDERED: FENT1PAT8 TD (10:29)
[2019-06-04] MEDS ORDERED: LACTATED RINGERS 1,000 ML IV PRN (10:39)
--- NOTE | 2019-06-04 10:51 | NUR ---
SPOKE WITH THE PATIENT ABOUT HIS MEDICATIONS. WE WENT OVER THE EXT MED HX AND HE VERIFIED HOW HE TAKES THEM. HE FILLED ASPIRIN 81MG #30 05-28-19 HOWEVER HE STATES HE HAS NOT BEEN TAKING IT. HE SAYS SOMEWHERE ALONG THE WAY HE WAS TOLD NOT TO AND HAS NOT BEEN TAKING IT RECENTLY. HE STATES HE DOES NOT TAKE ANYTHING OTC.
--- NOTE | 2019-06-04 11:36 | Progress Note - Surgery ---
[facility] 06/04/19 1136: Subjective Date Seen by a Provider: Jun 04, 2019 Time Seen by a Provider: 08:50 Subjective/Events-last exam Pt lying down in bed. Reports increased pain to buttock wound. Denies any other sx. Review of Systems General: No Chills, No Night Sweats HEENT: No Head Aches, No Visual Changes Pulmonary: No Dyspnea, No Cough Cardiovascular: No: Chest Pain, Palpitations Gastrointestinal: No: Nausea, Vomiting, Abdominal Pain Musculoskeletal: other (pain to buttuck wound) Focused Exam Lactate Level 06/01/19 22:00: Lactic Acid Level 3.60*H 06/02/19 02:55: Lactic Acid Level 1.57 Objective Exam Vital Signs Date Time Temp Pulse Resp B/P (MAP) Pulse Ox O2 Delivery O2 Flow Rate FiO2 06/04/19 11:22 Room Air 06/04/19 09:00 78 17 124/74 (91) 100 Room Air 06/04/19 08:35 Room Air 06/04/19 08:17 37.5 06/04/19 08:16 37.5 06/04/19 08:00 83 25 135/80 (98) 99 Room Air 06/04/19 07:34 38.0 06/04/19 07:20 38.0 06/04/19 07:00 83 06/04/19 06:00 84 23 149/81 (103) 99 Room Air 06/04/19 05:56 37.2 25 06/04/19 05:29 83 25 149/67 (94) 100 Room Air 06/04/19 05:27 91 06/04/19 05:26 37.2 18 06/04/19 05:18 100 Room Air 06/04/19 04:00 Room Air 06/04/19 04:00 96 24 138/91 (107) 100 Room Air 06/04/19 03:15 98 22 140/103 (115) 97 Room Air 06/04/19 01:03 36.1 81 20 135/84 (101) 100 Room Air 06/04/19 01:00 78 20 135/84 (101) 100 Room Air 06/04/19 01:00 95 06/04/19 00:00 Room Air 06/03/19 22:46 117 25 118/82 (94) 98 Room Air 06/03/19 21:02 38.3 06/03/19 21:00 37.0 06/03/19 20:00 Room Air 06/03/19 19:55 38.3 101 26 154/94 (114) 100 Room Air 06/03/19 19:00 103 06/03/19 18:52 100 Room Air 06/03/19 16:00 100 Room Air 06/03/19 16:00 36.5 06/03/19 16:00 113 24 104/67 (79) 100 Room Air 06/03/19 14:30 36.6 06/03/19 13:00 88 06/03/19 12:45 37.8 06/03/19 12:00 38.3 06/03/19 12:00 100 Room Air 06/03/19 12:00 90 18 134/80 (98) 100 Room Air I & O 06/04/19 07:00 Intake Total 5110 ml Output Total 3100 ml Balance 2010 ml Capillary Refill : Less Than 3 Seconds General Appearance: No Apparent Distress, Obese HEENT: PERRL/EOMI Neck: Full Range of Motion, Normal Inspection Respiratory: Chest Non Tender, No Accessory Muscle Use, No Respiratory Distress Cardiovascular: Regular Rate, Rhythm, No Edema, No Gallop, No JVD, No Murmur Gastrointestinal: non tender, soft, hernia (large ventral) Extremity: Non Tender, No Pedal Edema, Other (R buttock wound showes increased drainage, no surrounding erythema, increased tenderness) Neurologic/Psychiatric: Alert, Oriented x3, Normal Mood/Affect, pie filler II-XII Norm as Tested Skin: Normal Color, Other (less erythema right buttock, open wound, scant drainage, tissue appears healthy) Lymphatic: No Adenopathy Results Lab Laboratory Tests 06/03/19 11:34: Glucometer 214H 06/03/19 15:27: Glucometer 224H 06/03/19 15:58: Glucometer 247H 06/03/19 20:28: Glucometer 224H 06/04/19 03:30: White Blood Count 10.8, Red Blood Count 5.03, Hemoglobin 13.3, Hematocrit 40, Mean Corpuscular Volume 80, Mean Corpuscular Hemoglobin 26, Mean Corpuscular Hemoglobin Concent 33, Red Cell Distribution Width 13.8, Platelet Count 185, Mean Platelet Volume 9.7, Neutrophils (%) (Auto) 84H, Lymphocytes (%) (Auto) 9L, Monocytes (%) (Auto) 5, Eosinophils (%) (Auto) 2, Basophils (%) (Auto) 0, Neutrophils # (Auto) 9.1H, Lymphocytes # (Auto) 1.0, Monocytes # (Auto) 0.6, Eosinophils # (Auto) 0.2, Basophils # (Auto) 0.0, Sodium Level 136, Potassium Level 3.8, Chloride Level 102, Carbon Dioxide Level 25, Anion Gap 9, Blood Urea Nitrogen 15, Creatinine 0.97, Estimat Glomerular Filtration Rate > 60, BUN/Creatinine Ratio 15, Glucose Level 134H, Calcium Level 7.8L, Phosphorus Level 2.7, Magnesium Level 1.9 06/04/19 11:18: Glucometer 98 Microbiology 06/02/19 MRSA Screen - Final, Complete 06/02/19 Gram Stain - Final, Resulted 06/02/19 Anaerobic Culture, Resulted Pending 06/02/19 Wound Culture - Preliminary, Resulted Escherichia coli Strep anginosus YEAST 06/01/19 Blood Culture - Preliminary, Resulted Klebsiella pneumoniae 06/01/19 Urine Culture - Final, Complete Klebsiella pneumoniae Assessment/Plan Assessment/Plan Assessment/Plan right perirectal necrotizing soft tissue infection/cellulitis- s/p i and d, debridement, irrigated and repacked wound, Will proceed with further debridement this afternoon MRSA was isolated from nasal sample E. coli, strep anginosus, and rare yeast were isolate from wound culture WBC normal this AM but Neutrophilia was noted CXR shows improved aeration of bilat lung bases loss of domain ventral hernia enlarged retroperitoneal lymphadenopathy, may be secondary to infection diabetes, uncontrolled continue antibiotics Clinical Quality Measures DVT/VTE Risk/Contraindication: Risk Factor Score Per Nursin RFS Level Per Nursing on Admit: 4+=Very High MONTY TAM DO 06/04/191944: Subjective Subjective/Events-last exam Patient reports pain to the right buttock increasing . Also with pain in abdomen but similar to his chronic pain. Patient reports swelling to left lower ext. NPO currently. Low grade fever. Denies n/v sweats chills shortness of breath or chest pain. Objective Exam General Appearance: No Apparent Distress, Obese HEENT: PERRL/EOMI Neck: Full Range of Motion, Normal Inspection Respiratory: Chest Non Tender, No Accessory Muscle Use, No Respiratory Distress Cardiovascular: Regular Rate, Rhythm Gastrointestinal: non tender (with palpation), soft, hernia (large ventral) Extremity: Swelling (left lower ext), Other (R buttock wound showes minimal drainage, no surrounding erythema, increased tenderness, slight discoloration deeper in wound) Neurologic/Psychiatric: Alert, Oriented x3, Normal Mood/Affect, pie filler II-XII Norm as Tested Skin: Normal Color Lymphatic: No Adenopathy Assessment/Plan Assessment/Plan Assessment/Plan right perirectal necrotizing soft tissue infection/cellulitis- s/p i and d, debridement, irrigated and repacked wound, Will proceed with further debridement this afternoon MRSA was isolated from nasal sample E. coli, strep anginosus, and rare yeast were isolate from wound culture WBC normal this AM but Neutrophilia was noted CXR shows improved aeration of bilat lung bases loss of domain ventral hernia enlarged retroperitoneal lymphadenopathy, may be secondary to infection diabetes, uncontrolled continue antibiotics left lower extremity swelling doppler pending wound care Supervisory-Addendum Brief Verification & Attestation Participated in pt care: history, MDM, physical Personally performed: exam, history, MDM, supervision of care Care discussed with: Medical Student Procedures: n/a Results interpretation: Verified all documentation Verification and Attestation of Medical Student E/M Service A medical student performed and documented this service in my presence. I reviewed and verified all information documented by the medical student and made modifications to such information, when appropriate. I personally performed the physical exam and medical decision making. Monty Tam, Jun 04, 2019,19:45 [facility] Jun 04, 2019 11:36 MONTY TAM DO Jun 04, 2019 19:45
--- NOTE | 2019-06-04 11:56 | NUR ---
PT LEFT FLOOR VIA BED W/ OR STAFF.
--- NOTE | 2019-06-04 12:14 | Diagnostic Imaging Report ---
PROCEDURE: US left lower extremity venous. TECHNIQUE: Multiple real-time grayscale images were obtained over the left lower extremity in various projections. Additional duplex Doppler and color Doppler images were also obtained. INDICATION: Left leg pain. FINDINGS: The left common femoral and superficial femoral veins demonstrate normal compressibility with normal response to augmentation and Valsalva. There is partially occlusive thrombus in the left popliteal vein. No fluid collection or mass is seen. IMPRESSION: Partially occlusive DVT in the left popliteal vein. Dictated by: Dictated on workstation # [id number]
[2019-06-04] MEDS ORDERED: SUCCINYLCHOLINE INJ 100 MG/5 ML SYR ONE (13:14)
--- NOTE | 2019-06-04 13:30 | Progress Note ---
Subjective Subjective/Events-last exam Having a lot of abdominal pain. Tmax of 38.0 in last 24 hours. Focused Exam Lactate Level 06/01/19 22:00: Lactic Acid Level 3.60*H 06/02/19 02:55: Lactic Acid Level 1.57 Objective Exam Last Set of Vital Signs Vital Signs Date Time Temp Pulse Resp B/P (MAP) Pulse Ox O2 Delivery O2 Flow Rate FiO2 06/04/19 12:31 36.1 06/04/19 11:22 Room Air 06/04/19 09:00 78 17 124/74 (91) 100 06/02/19 02:00 5.00 Capillary Refill : Less Than 3 Seconds I&O Intake and Output 06/04/19 00:00 Intake Total 4240 ml Output Total 3800 ml Balance 440 ml Intake Oral 1850 ml IV Total 2390 ml Output Urine Total 3800 ml General: Alert, Mild Distress Lungs: Clear to Auscultation, Normal Air Movement Heart: Regular Rate, No Murmurs Abdomen: Other (distended abdomen with multiple surgical scars noted) Results/Procedures Lab Laboratory Tests 06/03/19 15:27: Glucometer 224H 06/03/19 15:58: Glucometer 247H 06/03/19 20:28: Glucometer 224H 06/04/19 03:30: White Blood Count 10.8, Red Blood Count 5.03, Hemoglobin 13.3, Hematocrit 40, Mean Corpuscular Volume 80, Mean Corpuscular Hemoglobin 26, Mean Corpuscular Hemoglobin Concent 33, Red Cell Distribution Width 13.8, Platelet Count 185, Mean Platelet Volume 9.7, Neutrophils (%) (Auto) 84H, Lymphocytes (%) (Auto) 9L, Monocytes (%) (Auto) 5, Eosinophils (%) (Auto) 2, Basophils (%) (Auto) 0, Neutrophils # (Auto) 9.1H, Lymphocytes # (Auto) 1.0, Monocytes # (Auto) 0.6, Eosinophils # (Auto) 0.2, Basophils # (Auto) 0.0, Sodium Level 136, Potassium Level 3.8, Chloride Level 102, Carbon Dioxide Level 25, Anion Gap 9, Blood Urea Nitrogen 15, Creatinine 0.97, Estimat Glomerular Filtration Rate > 60, BUN/Creatinine Ratio 15, Glucose Level 134H, Calcium Level 7.8L, Phosphorus Level 2.7, Magnesium Level 1.9 06/04/19 11:18: Glucometer 98 06/04/19 13:15: Glucometer 115H Microbiology 06/02/19 MRSA Screen - Final, Complete 06/02/19 Gram Stain - Final, Resulted 06/02/19 Anaerobic Culture, Resulted Pending 06/02/19 Wound Culture - Preliminary, Resulted Escherichia coli Strep anginosus YEAST 06/01/19 Blood Culture - Preliminary, Resulted Klebsiella pneumoniae 06/01/19 Urine Culture - Final, Complete Klebsiella pneumoniae Assessment/Plan Assessment/Plan (1) Necrotizing cellulitis Status: Acute Assessment & Plan: Surgery consulted, initial I&D done and plan to go back to OR today. On clindamycin, zosyn and vancomycin. (2) Diabetes mellitus, type 2 Status: Chronic Assessment & Plan: Levemir, sliding scale insulin. Qualifiers: (3) Chronic pain Status: Chronic Assessment & Plan: On fentany and dilaudid at home. Currently on morphine [employer] but remains in significant pain, will reeval dosing. Qualifiers: Qualified Codes: G89.4 - Chronic pain syndrome (4) Acute renal insufficiency Status: Resolved (5) Lymphadenopathy Assessment & Plan: Suspect related to cellulitis, but may need to consider follow up outpatient. (6) Hydroureteronephrosis Status: Acute (7) Urinary tract infection Assessment & Plan: Klebsiella in urine and blood. Abx as noted above. (8) DVT prophylaxis Status: Acute Assessment & Plan: Was on apixaban outpatient, will resume anticoagulation when okay with surgery. Clinical Quality Measures DVT/VTE Risk/Contraindication: Risk Factor Score Per Nursin RFS Level Per Nursing on Admit: 4+=Very High KAYLEE WATT MD Jun 04, 2019 13:30
--- NOTE | 2019-06-04 13:39 | NUR ---
DR GAO SPOKE W/ THIS RN, NEW ORDERS RECEIVED TO START HEPARIN GTT AND NOT TO CHANGE RIGHT BUTTOCK DRESSING UNTIL TOMORROW UNLESS NECESSARY.
--- NOTE | 2019-06-04 14:00 | NUR ---
PT BACK TO [facility] W/ PACU STAFF. PT HAVING AUDIBLE WHEEZES, LABORED BREATHING, AND IS RESTLESS. O2 SATS 100% ON ROOM AIR. DR CHASE NOTIFIED. NEW ORDERS RECEIVED FOR ABG, CXR, AND BIPAP. DR CHASE INFORMED OF PT'S LEFT LEG ULTRASOUND RESULTS. THIS RN TO START HEPARIN AFTER VERIFIED BY PHARMACY.
--- NOTE | 2019-06-04 14:04 | Anesthesia-General Post-Op ---
General Patient Condition Mental Status/LOC: Same as Preop Cardiovascular: Satisfactory Nausea/Vomiting: Absent Respiratory: Satisfactory Pain: Controlled Complications: Absent Post Op Complications Complications None Follow Up Care/Instructions Patient Instructions None needed. Anesthesia/Patient Condition Patient Condition Patient is doing well, no complaints, stable vital signs, no apparent adverse anesthesia problems. No complications reported per nursing. D/C home per [facility] Criteria: Yes MARTHA ZEPEDA CRNA Jun 04, 2019 14:04
[2019-06-04 14:26] LABS: ABG BASE EXCESS 0.5 MMOL/L (-2.5-2.5); ABG OXYGEN SATURATION 86 % (94-100); ABG PCO2 42 MMHG (35-45); ABG PH 7.39 (7.37-7.43); ABG PO2 54 MMHG (79-93); ABG TCO2 26.5 MMOL/L (21.0-31.0)
[2019-06-04 14:27] LABS: ALLENS TEST POS; INSPIRED O2 RA; VENTILATOR NO
--- NOTE | 2019-06-04 15:00 | Diagnostic Imaging Report ---
INDICATION: Respiratory distress. TIME OF EXAMINATION: 2:31 PM. COMPARISON: Correlation is made with the prior chest from earlier this same day. FINDINGS: The heart size is stable. There is mild right convexity thoracic scoliotic curvature. There is some right perihilar and right basilar infiltrate or atelectasis. The left lung is clear. No significant effusion or pneumothorax is seen. IMPRESSION: Right perihilar and right basilar infiltrate or atelectasis. Dictated by: Dictated on workstation # [id number]
[2019-06-04] MEDS ORDERED: HEParin 1000 UNIT/ML (10ML VIAL) FOR BOLUS ONE (15:05)
[2019-06-04] MEDS ORDERED: HEParin DRIP 25000 UNIT/500ML 500 ML IV ONE (15:05)
[2019-06-04 15:11] LABS: HEMOGLOBIN 12.9 G/DL (13.3-17.7); MEAN PLATELET VOLUME 9.6 FL (7.4-10.4); WHITE BLOOD COUNT 11.9 10^3/uL (4.3-11.0)
[2019-06-04] MEDS: HEParin 1000 UNIT/ML (10ML VIAL) FOR BOLUS IV SCH ×2 (15:14→20:40)
[2019-06-04] MEDS: HEParin DRIP 25000 UNIT/500ML 500 ML IV SCH (15:17)
[2019-06-04 15:31] LABS: INR 1.1 (0.8-1.4); PROTHROMBIN TIME PATIENT 14.6 SEC (12.2-14.7)
--- NOTE | 2019-06-04 20:55 | NUR ---
CALLED DR. WATT AND INFORMED HER THAT PATIENT WAS RESTLESS AND UNABLE TO RELAX ENOUGH TO GO TO SLEEP. RECEIVED ORDER FOR 5MG AMBIEN PO.
[2019-06-04] MEDS: MUPIROCIN 2% OINT 22 GM (BACTROBAN) TUBE TOP SCH (21:30)
[2019-06-04] MEDS ORDERED: ZOLPIDEM 5 MG (AMBIEN) TAB ONE (21:51)
[2019-06-04] MEDS: ZOLPIDEM 5 MG (AMBIEN) TAB PO PRN (21:57)
--- NOTE | 2019-06-04 23:30 | OPERATIVE REPORT ---
DATE OF SERVICE: 06/04/2019 PREOPERATIVE DIAGNOSIS: Necrotizing soft tissue infection. POSTOPERATIVE DIAGNOSIS: Necrotizing soft tissue infection. PROCEDURE: Cautery debridement of wound, right buttock, measuring 8.5 x 5 x 8 cm total size of wound, washout and packing. SURGEON: Monty Tam DO ANESTHESIA: General. ESTIMATED BLOOD LOSS: Minimal. COMPLICATIONS: None. INDICATIONS: The patient is a 59-year-old male with necrotizing soft tissue infection. The patient previously underwent incision, drainage and debridement. The patient was taken to the operating room today for reexploration and further debridement. The patient understands risks and benefits of procedure and wished to proceed with procedure. Consent was signed in the chart. DESCRIPTION OF PROCEDURE: The patient was taken to the operating suite, was prepped and draped in sterile fashion in the prone position. The wound was then explored with some tracking distally. There were also on the superior portion of the wound, small area of necrotic tissue just underneath the skin. The skin and subcutaneous tissue were then removed using cautery and the tracking was then opened up using cautery as well. Necrotic tissue that was present was removed with cautery and hemostasis was achieved. The overall size of the wound is 8.5 x 5 x 8 cm. The wound was then irrigated with 4 liters of irrigation. The tissue present appears healthy without any current necrosis. The wound was then packed with Kerlix soaked in Betadine for wet to dry and the area was then washed and dried and sterile bandage was applied. The patient tolerated procedure well without any complications and taken back to the Intensive Care Unit in stable condition. The patient still could need further reexploration. Job ID: [id number] DocumentID: [id number] Dictated Date: 06/04/2019 23:05:24 Radio Intelligence Operator Date: 06/04/2019 23:30:33 Dictated By: MONTY TAM DO
[2019-06-05] VITALS (24 sets, daily range): BP systolic 129–191; BP diastolic 50–172
[2019-06-05] MEDS: LACTATED RINGERS 1,000 ML IV SCH ×3 (00:46→20:17)
[2019-06-05] MEDS: HEParin 1000 UNIT/ML (10ML VIAL) FOR BOLUS IV SCH ×3 (01:34→23:35)
[2019-06-05] MEDS: PATCH REMOVAL TP SCH (01:45)
[2019-06-05] MEDS: morphine PCA 100 MG/100 ML BAG IV PRN ×2 (03:30→17:05)
[2019-06-05] MEDS: PIPERACILLIN/TAZO 4.5 GM/NS 100 ML IV SCH ×6 (03:31→20:54)
[2019-06-05 03:48] LABS: BASOPHILS % (AUTO) 0 % (0-10); EOSINOPHILS # (AUTO) 0.2 10^3/uL (0.0-0.3); EOSINOPHILS % (AUTO) 1 % (0-10); HEMATOCRIT 37 % (40-54); HEMOGLOBIN 12.1 G/DL (13.3-17.7); LYMPHOCYTES # (AUTO) 0.7 X 10^3 (1.0-4.0); LYMPHOCYTES % (AUTO) 6 % (12-44); MEAN CORPUSCULAR HEMOGLOBIN 26 PG (25-34); MEAN CORPUSCULAR HGB CONC 33 G/DL (32-36); MEAN CORPUSCULAR VOLUME 80 FL (80-99); MEAN PLATELET VOLUME 9.2 FL (7.4-10.4); MONOCYTES # (AUTO) 0.7 X 10^3 (0.0-1.0); MONOCYTES % (AUTO) 6 % (0-12); NEUTROPHILS # (AUTO) 10.1 X 10^3 (1.8-7.8); NEUTROPHILS % (AUTO) 87 % (42-75); PLATELET COUNT 221 10^3/uL (130-400); RED CELL DISTRIBUTION WIDTH 14.1 % (10.0-14.5); WHITE BLOOD COUNT 11.7 10^3/uL (4.3-11.0)
[2019-06-05 04:07] LABS: BUN/CREATININE RATIO 15; CALCIUM 7.5 MG/DL (8.5-10.1); CARBON DIOXIDE 23 MMOL/L (21-32); CHLORIDE 104 MMOL/L (98-107); CREATININE SERUM 0.89 MG/DL (0.60-1.30); GFR ESTIMATED > 60; GLUCOSE 156 MG/DL (70-105); MAGNESIUM 1.7 MG/DL (1.6-2.4); PHOSPHORUS 2.7 MG/DL (2.3-4.7); POTASSIUM 3.9 MMOL/L (3.6-5.0); SODIUM 137 MMOL/L (135-145)
[2019-06-05] MEDS: POTASSIUM CL 10MEQ/50ML IVPB 50 ML IV SCH (04:16)
[2019-06-05] MEDS: KCL 20 MEQ TAB (K-DUR) PO SCH (04:16)
[2019-06-05] MEDS: inSUlin ASPART (NovoLOG) 1 UNIT/0.01 ML (CHARGE PER UNIT) SC SCH ×4 (04:17→20:16)
[2019-06-05] MEDS: MAGNESIUM 1 GM/100 ML IVPB 100 ML IV SCH ×3 (04:17→06:41)
--- NOTE | 2019-06-05 05:15 | Pulmonary Progress Note ---
Subjective Time Seen by a Provider: 05:10 Subjective/Events-last exam Pt complain of pain. No SOB. Sepsis Event Evaluation Height, Weight, BMI Height: 5'8.00" Weight: 242lbs. 2.0oz. 109.426625sy; 33.52 BMI Method: Exam Exam Vital Signs Date Time Temp Pulse Resp B/P (MAP) Pulse Ox O2 Delivery O2 Flow Rate FiO2 06/05/19 04:00 24 06/05/19 03:30 37.4 24 06/05/19 02:11 97 Room Air 06/05/19 01:00 83 06/05/19 00:00 99 Room Air 06/05/19 00:00 37.4 06/05/19 00:00 80 13 147/78 (101) 97 Room Air 06/04/19 23:00 85 17 180/86 (117) 97 Room Air 06/04/19 22:00 87 26 160/82 (108) 99 Room Air 06/04/19 21:29 89 20 156/97 (116) 99 Room Air 06/04/19 20:42 100 Room Air 06/04/19 20:00 97 91/67 (75) 98 Room Air 06/04/19 20:00 98 Room Air 06/04/19 19:40 36.8 06/04/19 19:19 88 13 188/110 (136) 100 Room Air 06/04/19 19:00 84 06/04/19 18:00 80 21 161/90 (113) 95 Room Air 06/04/19 17:00 78 19 128/68 (88) 96 Room Air 06/04/19 16:54 Room Air 06/04/19 16:00 80 16 131/72 (91) 92 Room Air 06/04/19 15:57 36.2 06/04/19 15:00 79 33 135/71 (92) 100 Room Air 06/04/19 14:48 79 32 99 21.00 06/04/19 14:00 36.4 18 128/68 (88) 100 Room Air 06/04/19 14:00 80 146/94 (111) Room Air 06/04/19 14:00 Room Air 06/04/19 13:50 18 158/103 (121) 100 Room Air 06/04/19 13:47 Room Air 06/04/19 13:44 Nasal Cannula 2 06/04/19 13:40 18 113/90 (98) 100 Nasal Cannula 2 06/04/19 13:35 OxyMask 6 06/04/19 13:30 18 137/78 (97) 100 OxyMask 6 06/04/19 13:25 OxyMask 6 06/04/19 13:20 18 114/66 (82) 99 OxyMask 6 06/04/19 13:12 OxyMask 6 06/04/19 13:12 36.6 20 111/75 (87) 91 OxyMask 6 06/04/19 12:31 36.1 06/04/19 11:22 Room Air 06/04/19 09:00 78 17 124/74 (91) 100 Room Air 06/04/19 08:35 Room Air 06/04/19 08:17 37.5 06/04/19 08:16 37.5 06/04/19 08:00 83 25 135/80 (98) 99 Room Air 06/04/19 07:34 38.0 06/04/19 07:20 38.0 06/04/19 07:00 83 06/04/19 06:00 84 23 149/81 (103) 99 Room Air 06/04/19 05:56 37.2 25 06/04/19 05:29 83 25 149/67 (94) 100 Room Air 06/04/19 05:27 91 06/04/19 05:26 37.2 18 06/04/19 05:18 100 Room Air I & O 06/05/19 07:00 Intake Total 6180 ml Output Total 3350 ml Balance 2830 ml Height & Weight Height: 5'8.00" Weight: 242lbs. 2.0oz. 109.267235tg; 33.52 BMI Method: General Appearance: No Apparent Distress, Obese HEENT: PERRL/EOMI Neck: Full Range of Motion, Normal Inspection Respiratory: Chest Non Tender, No Accessory Muscle Use, No Respiratory Distress Cardiovascular: Regular Rate, Rhythm Capillary Refill: Less Than 3 Seconds Gastrointestinal: non tender (with palpation), soft, hernia (large ventral) Extremity: Swelling (left lower ext), Other (R buttock wound showes minimal drainage, no surrounding erythema, increased tenderness, slight discoloration deeper in wound) Neurologic/Psychiatric: Alert, Oriented x3, Normal Mood/Affect, market research assistant II-XII Norm as Tested Skin: Normal Color Lymphatic: No Adenopathy Results Lab Laboratory Tests 06/04/19 03:30 06/04/19 14:55 06/05/19 03:45 Assessment/Plan Assessment/Plan right perirectal soft tissue infection/cellulitis concerning for necrotizing infection with air in soft tissues by ct scan s/p debridement Tm 38. 3 at 2100 last night -Continue Zosyn/Vanc/Clindamycin -Restart vancomycin secondary to concern of necrotizing fascitis, MRSA screen is positive and pt is going back to surgery today. Klebsiella bacteremia is from urine. -Pain control -surgery following UTI with Klebsiella Bacteremia secondary to UTI IDDM -Levemir changed to 5units QHS secondary to hypoglycemia -DM diet Hx of ASMITA -Obtain home machine if available SANDY SANCHEZ DO Jun 05, 2019 05:15
[2019-06-05 06:20] LABS: ALANINE AMINOTRANSFERASE 34 U/L (0-55); ALBUMIN 1.9 GM/DL (3.2-4.5); ALKALINE PHOSPHATASE 299 U/L (40-136); AMMONIA 28 UMOL/L (11-32); BILIRUBIN,TOTAL 1.2 MG/DL (0.1-1.0); BUN/CREATININE RATIO 14; CALCIUM 7.2 MG/DL (8.5-10.1); CARBON DIOXIDE 25 MMOL/L (21-32); CHLORIDE 101 MMOL/L (98-107); CREATININE SERUM 0.86 MG/DL (0.60-1.30); GFR ESTIMATED > 60; GLUCOSE 162 MG/DL (70-105); POTASSIUM 3.8 MMOL/L (3.6-5.0); SODIUM 134 MMOL/L (135-145); TOTAL PROTEIN 4.9 GM/DL (6.4-8.2)
[2019-06-05] MEDS: CLINDAMYCIN 900 MG/50 ML IVPB 50 ML IV SCH ×3 (06:36→20:54)
[2019-06-05] MEDS: HEParin DRIP 25000 UNIT/500ML 500 ML IV SCH ×2 (06:41→17:32)
--- NOTE | 2019-06-05 07:12 | Diagnostic Imaging Report ---
INDICATION: Hyperglycemia, perirectal cellulitis. TECHNIQUE: Single view chest 4:03 AM. CORRELATION STUDY: 06/04/2019 FINDINGS: Right IJ central line unchanged. Heart size and mediastinum are generally stable. Vasculature remains prominent but slightly diminished. Continued areas of perihilar and basilar atelectasis on the right stable to slightly improved. IMPRESSION: 1. Continued right perihilar and basilar atelectasis and/or infiltrate persisting may be minimally improved. Dictated by: Dictated on workstation # [id number]
[2019-06-05] MEDS: VANCOMYCIN 1500 MG/NS 500 ML IVPB IV SCH ×2 (08:27)
[2019-06-05] MEDS: MUPIROCIN 2% OINT 22 GM (BACTROBAN) TUBE TOP SCH ×2 (08:31→20:56)
--- NOTE | 2019-06-05 08:56 | Progress Note - Surgery ---
[facility] MED STUD 06/05/19 0856: Subjective Date Seen by a Provider: Jun 05, 2019 Time Seen by a Provider: 08:51 Subjective/Events-last exam Pt has been c/o of pain in R buttock and lower back today, asking for pain meds frequently. Denies F, chills, abd pain, N/V. Has been having BMs. Review of Systems General: No Chills, No Night Sweats HEENT: No Head Aches, No Visual Changes Pulmonary: No Dyspnea, No Cough Cardiovascular: No: Chest Pain, Palpitations Gastrointestinal: No: Nausea, Vomiting, Abdominal Pain Musculoskeletal: other (pain to R buttock ), back pain (LBP) Objective Exam Vital Signs Date Time Temp Pulse Resp B/P (MAP) Pulse Ox O2 Delivery O2 Flow Rate FiO2 06/05/19 06:00 80 32 129/84 (99) 100 Room Air 06/05/19 05:20 81 29 153/82 (105) 100 Room Air 06/05/19 04:03 82 13 129/90 (103) 100 Room Air 06/05/19 04:00 99 Room Air 06/05/19 04:00 24 06/05/19 03:30 37.4 24 06/05/19 03:00 85 25 99 Room Air 06/05/19 02:31 87 29 165/85 (111) 99 Room Air 06/05/19 02:11 97 Room Air 06/05/19 01:00 83 06/05/19 01:00 83 27 151/93 (112) 98 Room Air 06/05/19 00:00 99 Room Air 06/05/19 00:00 37.4 06/05/19 00:00 80 13 147/78 (101) 97 Room Air 06/04/19 23:00 85 17 180/86 (117) 97 Room Air 06/04/19 22:00 87 26 160/82 (108) 99 Room Air 06/04/19 21:29 89 20 156/97 (116) 99 Room Air 06/04/19 20:42 100 Room Air 06/04/19 20:00 97 91/67 (75) 98 Room Air 06/04/19 20:00 98 Room Air 06/04/19 19:40 36.8 06/04/19 19:19 88 13 188/110 (136) 100 Room Air 06/04/19 19:00 84 06/04/19 18:00 80 21 161/90 (113) 95 Room Air 06/04/19 17:00 78 19 128/68 (88) 96 Room Air 06/04/19 16:54 Room Air 06/04/19 16:00 80 16 131/72 (91) 92 Room Air 06/04/19 15:57 36.2 06/04/19 15:00 79 33 135/71 (92) 100 Room Air 06/04/19 14:48 79 32 99 21.00 06/04/19 14:00 36.4 18 128/68 (88) 100 Room Air 06/04/19 14:00 80 146/94 (111) Room Air 06/04/19 14:00 Room Air 06/04/19 13:50 18 158/103 (121) 100 Room Air 06/04/19 13:47 Room Air 06/04/19 13:44 Nasal Cannula 2 06/04/19 13:40 18 113/90 (98) 100 Nasal Cannula 2 06/04/19 13:35 OxyMask 6 06/04/19 13:30 18 137/78 (97) 100 OxyMask 6 06/04/19 13:25 OxyMask 6 06/04/19 13:20 18 114/66 (82) 99 OxyMask 6 06/04/19 13:12 OxyMask 6 06/04/19 13:12 36.6 20 111/75 (87) 91 OxyMask 6 06/04/19 12:31 36.1 06/04/19 11:22 Room Air 06/04/19 09:00 78 17 124/74 (91) 100 Room Air I & O 06/05/19 07:00 Intake Total 7435 ml Output Total 4050 ml Balance 3385 ml Capillary Refill : Less Than 3 Seconds General Appearance: No Apparent Distress, Obese HEENT: PERRL/EOMI Neck: Full Range of Motion, Normal Inspection Respiratory: Chest Non Tender, No Accessory Muscle Use, No Respiratory Distress Cardiovascular: Regular Rate, Rhythm Gastrointestinal: non tender (with palpation), soft, hernia (large ventral) Extremity: Swelling (left lower ext), Other (R buttock wound, no surrounding erythema, minimal drainage and discolouration to deep tissues) Neurologic/Psychiatric: Alert, Oriented x3, Normal Mood/Affect, wheel lacer and truer II-XII Norm as Tested Skin: Normal Color Lymphatic: No Adenopathy Results Lab Laboratory Tests 06/04/19 11:18: Glucometer 98 06/04/19 13:15: Glucometer 115H 06/04/19 14:15: Blood Gas Puncture Site RT RAD, Blood Gas Patient Temperature 36.0, Arterial Blood pH 7.39, Arterial Blood Partial Pressure CO2 42, Arterial Blood Partial Pressure O2 54L, Arterial Blood HCO3 25, Arterial Blood Total CO2 26.5, Arterial Blood Oxygen Saturation 86L, Arterial Blood Base Excess 0.5, Ishan Test POS, Blood Gas Ventilator Setting NO, Blood Gas Inspired Oxygen RA 06/04/19 14:55: White Blood Count 11.9H, Red Blood Count 4.83, Hemoglobin 12.9L, Hematocrit 39L, Mean Corpuscular Volume 81, Mean Corpuscular Hemoglobin 27, Mean Corpuscular Hemoglobin Concent 33, Red Cell Distribution Width 14.0, Platelet Count 194, Mean Platelet Volume 9.6, Prothrombin Time 14.6, INR Comment 1.1, Activated Partial Thromboplast Time 27 06/04/19 16:02: Glucometer 139H 06/04/19 19:50: Activated Partial Thromboplast Time 31 06/04/19 21:44: Glucometer 236H 06/05/19 00:40: Activated Partial Thromboplast Time 46H 06/05/19 03:45: White Blood Count 11.7H, Red Blood Count 4.61, Hemoglobin 12.1L, Hematocrit 37L, Mean Corpuscular Volume 80, Mean Corpuscular Hemoglobin 26, Mean Corpuscular Hemoglobin Concent 33, Red Cell Distribution Width 14.1, Platelet Count 221, Mean Platelet Volume 9.2, Neutrophils (%) (Auto) 87H, Lymphocytes (%) (Auto) 6L, Monocytes (%) (Auto) 6, Eosinophils (%) (Auto) 1, Basophils (%) (Auto) 0, Neutrophils # (Auto) 10.1H, Lymphocytes # (Auto) 0.7L, Monocytes # (Auto) 0.7, Eosinophils # (Auto) 0.2, Basophils # (Auto) 0.0, Sodium Level 137, Potassium Level 3.9, Chloride Level 104, Carbon Dioxide Level 23, Anion Gap 10, Blood Urea Nitrogen 13, Creatinine 0.89, Estimat Glomerular Filtration Rate > 60, BUN/Creatinine Ratio 15, Glucose Level 156H, Calcium Level 7.5L, Phosphorus Level 2.7, Magnesium Level 1.7 06/05/19 05:45: Sodium Level 134L, Potassium Level 3.8, Chloride Level 101, Carbon Dioxide Level 25, Anion Gap 8, Blood Urea Nitrogen 12, Creatinine 0.86, Estimat Glomerular Filtration Rate > 60, BUN/Creatinine Ratio 14, Glucose Level 162H, Calcium Level 7.2L, Activated Partial Thromboplast Time 55H, Corrected Calcium 8.9, Total Bilirubin 1.2H, Aspartate Amino Transf (AST/SGOT) 31, Alanine Aminotransferase (ALT/SGPT) 34, Alkaline Phosphatase 299H, Ammonia 28, Total Protein 4.9L, Albumin 1.9L Microbiology 06/02/19 MRSA Screen - Final, Complete 06/02/19 Gram Stain - Final, Resulted 06/02/19 Anaerobic Culture, Resulted Pending 06/02/19 Wound Culture - Preliminary, Resulted Escherichia coli Strep anginosus Lactobacillus gasseri YEAST 06/01/19 Blood Culture - Preliminary, Resulted Klebsiella pneumoniae 06/01/19 Urine Culture - Final, Complete Klebsiella pneumoniae Assessment/Plan Assessment/Plan Assessment/Plan Right perirectal necrotizing soft tissue infection/cellulitis- s/p i and d, debridement, irrigated and repacked wound; Further debridement yesterday, tolerated well. Wound (8cm deep) was repacked, Continue wound care, receiving AB X (Vanco, Clinda, Pip-Tazo) MRSA was isolated from nasal sample E. coli, strep anginosus, and rare yeast were isolate from wound culture Leukocytosis, Klebsiella UTI, Klebsiella also identified in blood cultures CXR shows Right perihilar & basilar infiltrate vs atelectasis Loss of domain ventral hernia Enlarged retroperitoneal lymphadenopathy, may be secondary to infection Diabetes, uncontrolled Left lower extremity swelling, Venous U/S showed partially occlusive DVT in L popliteal V, started on anticoagulants Clinical Quality Measures DVT/VTE Risk/Contraindication: Risk Factor Score Per Nursin RFS Level Per Nursing on Admit: 4+=Very High FOX TAM DO 06/05/192102: Subjective Subjective/Events-last exam Patient with pain in buttock and his chronic abdominal pain he states. Reports having bm. Wound with scant drainage. Pain still moderate. Sister at bedside. Objective Exam General Appearance: No Apparent Distress, Anxious HEENT: PERRL/EOMI Neck: Full Range of Motion, Normal Inspection Respiratory: Chest Non Tender, No Accessory Muscle Use, No Respiratory Distress Cardiovascular: Regular Rate, Rhythm Gastrointestinal: soft, hernia (large ventral) Extremity: Swelling (left lower ext), Other (R buttock wound, no surrounding erythema, scant drainage and normal appearing subctuaneous fat) Neurologic/Psychiatric: Alert, Oriented x3, Normal Mood/Affect, wheel lacer and truer II-XII Norm as Tested Skin: Normal Color Lymphatic: No Adenopathy Assessment/Plan Assessment/Plan Assessment/Plan Right perirectal necrotizing soft tissue infection/cellulitis- s/p i and d, debridement, irrigated and repacked wound; Further debridement yesterday, tolerated well. Wound (8cm deep) was repacked, Continue wound care, receiving ABX (Vanco, Clinda, Pip-Tazo) MRSA was isolated from nasal sample E. coli, strep anginosus, and rare yeast were isolate from wound culture Leukocytosis, Klebsiella UTI, Klebsiella also identified in blood cultures CXR shows Right perihilar & basilar infiltrate vs atelectasis Loss of domain ventral hernia Enlarged retroperitoneal lymphadenopathy, may be secondary to infection Diabetes, uncontrolled Left lower extremity swelling, Venous U/S showed partially occlusive DVT in L popliteal V, started on anticoagulants work on pain control wound care, wound at this time looks to be continuing to improve on heparin drip for left lower ext dvt add eraxis for yeast to see if continues to improve conitnue abx Supervisory-Addendum Brief Verification & Attestation Participated in pt care: history, MDM, physical Personally performed: exam, history, MDM, supervision of care Care discussed with: Medical Student Procedures: n/a Results interpretation: Verified all documentation Verification and Attestation of Medical Student E/M Service A medical student performed and documented this service in my presence. I reviewed and verified all information documented by the medical student and made modifications to such information, when appropriate. I personally performed the physical exam and medical decision making. Fox Tam, Jun 05, 2019,21:03 [facility] Jun 05, 2019 08:56 FOX TAM DO Jun 05, 2019 21:03
--- NOTE | 2019-06-05 08:58 | Cardiology Progress Note ---
Subjective Date Seen by Provider: Jun 05, 2019 Time Seen by Provider: 08:56 Subjective/Events-last exam Patient is laying down in bed, complaining of generalized body ache Review of Systems General: No Chills, No Night Sweats; Fatigue, Malaise; No Appetite, No Other HEENT: No Head Aches, No Visual Changes, No Eye Pain, No Ear Pain, No Dysphasia, No Sinus Congestion, No Post Nasal Drip, No Sore Throat, No Other Pulmonary: No Dyspnea, No Cough, No Pleuritic Chest Pain, No Other Cardiovascular: No: Chest Pain, Palpitations, Orthopnea, Paroxysmal Noc. Dyspnea, Edema, Lt Headedness, Other Objective-Cardiology Exam Last Set of Vital Signs Vital Signs 06/04/19 06/05/19 06/05/19 14:48 03:30 06:00 Temp 37.4 Pulse 80 Resp 32 B/P (MAP) 129/84 (99) Pulse Ox 100 O2 Delivery Room Air O2 Flow Rate 21.00 Capillary Refill : Less Than 3 Seconds I&O Intake and Output 06/05/19 00:00 Intake Total 7005 ml Output Total 2600 ml Balance 4405 ml Intake Oral 1160 ml IV Total 5845 ml Output Urine Total 2600 ml General: Alert, Oriented X3, Mild Distress HEENT: Atraumatic Neck: Supple Lungs: Clear to Auscultation, Normal Air Movement Heart: Regular Rate, Normal S1, Normal S2, No Murmurs Abdomen: Other (distended abdomen with multiple surgical scars noted) Extremities: No Clubbing Neuro: Normal Speech Psych/Mental Status: Mental Status NL Results Lab Laboratory Tests 06/04/19 14:55 06/05/19 03:45 06/05/19 05:45 A/P-Cardiology Admission Diagnosis Atrial flutter Coronary artery disease Sepsis Diabetes mellitus Assessment/Plan Paroxysmal atrial flutter, had transient episode, returned to sinus rhythm, no previous history of arrhythmia. Continue to monitor on telemetry. Beta blockers and monitor. Coronary artery disease, history of stent done about 2 years ago, no recent cardiac workup, no active chest pain. No shortness of breath. Continue to monitor Perirectal abscess with possible early necrotizing fasciitis, treated aggressively, receiving antibiotic and had debridement, managed by Dr. Tam Left thigh pain, ultrasound showed nonocclusive DVT in the left popliteal vein, started on heparin drip, I will switch him to Lovenox when deemed reasonable with Dr. Tam Diabetes mellitus, followed and managed by primary care physician Clinical Quality Measures DVT/VTE Risk/Contraindication: Risk Factor Score Per Nursin RFS Level Per Nursing on Admit: 4+=Very High ANA MARIA LOVELL MD Jun 05, 2019 08:58
--- NOTE | 2019-06-05 09:15 | Anesthesia-General Post-Op ---
General Patient Condition Mental Status/LOC: Same as Preop Cardiovascular: Satisfactory Nausea/Vomiting: Absent Respiratory: Satisfactory Pain: Controlled Complications: Absent Post Op Complications Complications None Follow Up Care/Instructions Patient Instructions None needed. Anesthesia/Patient Condition Patient Condition Patient is doing well, no complaints, stable vital signs, no apparent adverse anesthesia problems. No complications reported per nursing. D/C home per [facility] [place] Criteria: Yes SY ROSAS CRNA Jun 05, 2019 09:15
--- NOTE | 2019-06-05 10:21 | Physical Therapy Evaluation ---
PT Evaluation-General Medical Diagnosis Admission Date Jun 01, 2019 at 22:03 Medical Diagnosis: Hypergylcemia, Perirectal cellulitis Onset Date: Jun 01, 2019 Therapy Diagnosis Therapy Diagnosis: Deconditioning Height/Weight Height (Feet): 5 Height (Inches): 8.00 Weight (Pounds): 242 Weight (Ounces): 2.0 Precautions Precautions/Isolations: Droplet Isolation, Fall Prevention Referral Physician: Madeline Reason for Referral: Evaluation/Treatment Medical History Pertinent Medical History: Arthritis, Diverticulitis, MD, Smoking Additional Medical History Coronary stent, sleep apnea Current History Patient presented to ER with hyperglycemia, blood sugar high as 500 and abdominal pain. Patient has been on 2 different rounds of antibiotics since 05/10/19 with no improvements. Reviewed History: Yes Social History Home: Single Level Current Living Status: Alone Entry Into Home: Stairs With Railing PT Steps Into Home: 3 PT Steps Inside Home: 0 Prior Prior Level of Function SCALE: Activities may be completed with or without assistive devices. 1-Hlzouvdvoc-qchdocg completes the activity by him/herself with no assistance from a helper. 5-Set-up or Clean-up Assistance-helper sets up or cleans up; patient completes activity. [place] assists only prior to or following the activity. 4-Supervision or Touching Assistance-helper provides verbal cues and/or touching/steadying and/or contact guard assistance as patient completes activity. Assistance may be provided throughout the activity or intermittently. 3-Partial/Moderate Assistance-helper does LESS THAN HALF the effort. [place] lift s, holds or supports trunk or limbs, but provides less than half the effort. 2-Substantial/Maximal Assistance-helper does MORE THAN HALF the effort. [place] lifts or holds trunk or limbs and provides more than half the effort. 7-Nuflxvcax-syjpew does ALL the effort. Patient does none of the effort to complete the activity. Or, the assistance of 2 or more helpers is required for the patient to complete the activity. If activity was not attempted, code reason: 7-Patient Refused. 9-Not Applicable-not attempted and the patient did not perform the activity before the current illness, exacerbation or injury. 10-Not Attempted due to Environmental Limitations-(lack of equipment, weather restraints, etc.). 88-Not Attempted due to Medical Conditions or Safety Concerns. Bed Mobility: 6 Transfers (B,C,W/C): 6 Gait: 6 Stairs: 6 Indoor Mobility (Ambulation): Independent Stairs: Independent Prior Device Use: Cane PT Evaluation-Current Subjective Patient is agreeable to therapy, he wants to stand because he is in pain. Pain Numeric Pain Scale: 10-Worst Possible Pain Location: Incisional Objective Patient Orientation: Person, Place, Time, Situation Attachments: Oxygen, Evans Catheter, IV ROM/Strength ROM Lower Extremities WFL BLE Strength Lower Extremities WFL BLE Integumentary/Posture Integumentary See nursing notes. Bowel Incontinence: Yes Neuromuscular (Tone, Coordination, Reflexes) Grossly intact Sensory Vision: Functional Hearing: Functional Sensation Right Lower Extremit: Intact Sensation Left Lower Extremity: Intact Transfers Sit to Stand (QC): 4 Gait Does the Patient Walk?: No and Walking Goal IS indicated Wheelchair Training Does the Pt Use a Wheelchair?: No Balance Sitting Static: Good Sitting Dynamic: Good Standing Static: Good Standing Dynamic: Good Treatment BLE standing exercises, patient stood for 10 minutes. Assessment/Needs Patient was in extreme pain and this limited what he was willing to do. Patient was able to stand with extra time given. Patient stood for about 10 minutes to ease the pain of sitting. Once back in chair patient BP was elevated. Rehab Potential: Fair PT Medical Director Of Hospice Goals Half-Way Goals PT Half-Way Goals Time Frame: Jun 22, 2019 Roll Left & Right (QC): 6 Sit to Lying (QC): 6 Lying-Sitting on Side/Bed(QC): 6 Sit to Stand (QC): 6 Chair/Fhr-hv-Pmnyv Xfer(QC): 6 Toilet Transfer (QC): 6 Does the Patient Walk: Yes Walk 10 feet (QC): 6 Walk 50ft with 2 Turns (QC): 6 Walk 150 ft (QC): 6 1 Step (curb) (QC): 6 PT Plan Problem List Problem List: Activity Tolerance, Functional Strength, Safety, Balance, Gait, Transfer, Bed Mobility, ROM Treatment/Plan Treatment Plan: Continue Plan of Care Treatment Plan: Bed Mobility, Education, Functional Activity [place], Functional Strength, Gait, Safety, Therapeutic Exercise, Transfers Treatment Duration: Jun 22, 2019 Frequency: 6 times per week Estimated Hrs Per Day: .25 hour per day Patient and/or Family Agrees t: Yes Safety Risks/Education Patient Education: Transfer Techniques Teaching Recipient: Patient Teaching Methods: Discussion Response to Teaching: Reinforcement Needed Time/GCodes Time In: 935 Time Out: 1005 Total Billed Treatment Time: 30 Total Billed Treatment 1 visit EVM (15) EX (15) DIONNA SOFIA PT Jun 05, 2019 10:20
[2019-06-05] MEDS: DAKIN'S 1/4 STRENGTH (0.125%) 473 ML BTL TOP SCH ×2 (11:00→20:55)
--- NOTE | 2019-06-05 12:15 | NUR ---
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 DR GAO NOTIFIED AND NEW ORDERS RECEIVED SEE ORDER HX.
[2019-06-05] MEDS: lisINopril 5 MG (PRINIVIL) TABLET PO SCH (12:43)
[2019-06-05] MEDS: HYDROcodone/APAP 5 MG/325 MG (LORTAB) TAB PO PRN ×2 (12:43→17:00)
[2019-06-05] MEDS ORDERED: polyethylene glycoL POWDER 17 GM (MIRALAX) PACK PO PRN (15:30)
--- NOTE | 2019-06-05 15:38 | Progress Note ---
Subjective Subjective/Events-last exam Afebrile, reporting persistent pain and severe constipation. Objective Exam Last Set of Vital Signs Vital Signs Date Time Temp Pulse Resp B/P (MAP) Pulse Ox O2 Delivery O2 Flow Rate FiO2 06/05/19 15:20 92 Room Air 06/05/19 14:00 90 13 176/63 (100) 06/05/19 12:00 36.8 06/04/19 14:48 21.00 Capillary Refill : Less Than 3 Seconds I&O Intake and Output 06/05/19 00:00 Intake Total 7005 ml Output Total 2600 ml Balance 4405 ml Intake Oral 1160 ml IV Total 5845 ml Output Urine Total 2600 ml General: Alert, Other (moaning in pain, states due to trying to have BM) Lungs: Clear to Auscultation, Normal Air Movement Abdomen: Normal Bowel Sounds, Other (large hernia, mild distension, mild ttp) Results/Procedures Lab Laboratory Tests 06/04/19 16:02: Glucometer 139H 06/04/19 19:50: Activated Partial Thromboplast Time 31 06/04/19 21:44: Glucometer 236H 06/05/19 00:40: Activated Partial Thromboplast Time 46H 06/05/19 03:45: White Blood Count 11.7H, Red Blood Count 4.61, Hemoglobin 12.1L, Hematocrit 37L, Mean Corpuscular Volume 80, Mean Corpuscular Hemoglobin 26, Mean Corpuscular Hemoglobin Concent 33, Red Cell Distribution Width 14.1, Platelet Count 221, Mean Platelet Volume 9.2, Neutrophils (%) (Auto) 87H, Lymphocytes (%) (Auto) 6L, Monocytes (%) (Auto) 6, Eosinophils (%) (Auto) 1, Basophils (%) (Auto) 0, Neutrophils # (Auto) 10.1H, Lymphocytes # (Auto) 0.7L, Monocytes # (Auto) 0.7, Eosinophils # (Auto) 0.2, Basophils # (Auto) 0.0, Sodium Level 137, Potassium Level 3.9, Chloride Level 104, Carbon Dioxide Level 23, Anion Gap 10, Blood Urea Nitrogen 13, Creatinine 0.89, Estimat Glomerular Filtration Rate > 60, BUN/Creatinine Ratio 15, Glucose Level 156H, Calcium Level 7.5L, Phosphorus Level 2.7, Magnesium Level 1.7 06/05/19 05:45: Sodium Level 134L, Potassium Level 3.8, Chloride Level 101, Carbon Dioxide Level 25, Anion Gap 8, Blood Urea Nitrogen 12, Creatinine 0.86, Estimat Glomerular Fi ltration Rate > 60, BUN/Creatinine Ratio 14, Glucose Level 162H, Calcium Level 7.2L, Activated Partial Thromboplast Time 55H, Corrected Calcium 8.9, Total Bilirubin 1.2H, Aspartate Amino Transf (AST/SGOT) 31, Alanine Aminotransferase (ALT/SGPT) 34, Alkaline Phosphatase 299H, Ammonia 28, Total Protein 4.9L, Albumin 1.9L 06/05/19 10:30: Activated Partial Thromboplast Time 113H 06/05/19 11:21: Glucometer 309H Microbiology 06/02/19 MRSA Screen - Final, Complete 06/02/19 Gram Stain - Final, Resulted 06/02/19 Anaerobic Culture, Resulted Pending 06/02/19 Wound Culture - Final, Resulted Escherichia coli Strep anginosus Lactobacillus gasseri YEAST 06/01/19 Blood Culture - Preliminary, Resulted Klebsiella pneumoniae 06/01/19 Urine Culture - Final, Complete Klebsiella pneumoniae Assessment/Plan Assessment/Plan (1) Necrotizing cellulitis Status: Acute Assessment & Plan: Surgery consulted, initial I&D done and plan to go back to OR today. On clindamycin, zosyn and vancomycin. 06/05 s/p debridement yesterday, continue clindamycin and zosyn, no MRSA noted, will d/c vancomycin. (2) Diabetes mellitus, type 2 Status: Chronic Assessment & Plan: Levemir, sliding scale insulin. Qualifiers: (3) Chronic pain Status: Chronic Assessment & Plan: On fentany and dilaudid at home. 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 06/05 converted home meds to morphine equivalents, and is currently able to get nearly double home dosing with PLANT PROTECTION OFFICER settings, will not adjust at this time. Qualifiers: Qualified Codes: G89.4 - Chronic pain syndrome (4) Acute renal insufficiency Status: Resolved (5) Lymphadenopathy Assessment & Plan: Suspect related to cellulitis, but may need to consider follow up outpatient. (6) Hydroureteronephrosis Status: Acute (7) Urinary tract infection Assessment & Plan: Klebsiella in urine and blood. Abx as noted above. (8) Thrombosis of left popliteal vein Assessment & Plan: Started on heparin drip to procedure, will transition when okay with Surgery (9) DVT prophylaxis Status: Acute Assessment & Plan: Now on treatment due to DVT noted above. Clinical Quality Measures DVT/VTE Risk/Contraindication: Risk Factor Score Per Nursin RFS Level Per Nursing on Admit: 4+=Very High KAYLEE WATT MD Jun 05, 2019 15:38
--- NOTE | 2019-06-05 15:45 | NUR ---
"RD ASSESSMENT PMHx: IN; prostate CA; diverticulosis; DM PT INTERACTION: Pt was awake and pleasant during nutrition assessment. Pt states current appetite is not good, and has been this way prior to admit. Note avg PO intake of <50% x3d, per chart review. Pt states following a regular diet at home and has no issues with chewing/swallowing food. Pt states recent episodes of nausea, but no episodes of vomiting. Pt states recent issues with constipation, and that his last BM was 2/4. Note pt not currently on bowel regimen per chart review. Pt states unsure of recent wt changes. Note unable to determine recent wt hx, per chart review. ABNORMAL NUTRITION-RELATED LAB VALUES LOW: Na 134; Ca 7.2; Pro 4.9; alb 1.9 HIGH: glu 162; bili 1.2; alkphos 299 Est. kcal needs: 6612-2699 kcal | 15-18 kcal/kg Est. Pro needs: 126-149 g Pro | 1.2-14 g Pro/kg PES STATEMENT: Inadequate oral intake (NI-2.1) related to loss of appetite | nausea | constipation as evidenced by pt interview | avg PO intake <50% x3d INTERVENTION: Continue with current diet order of CHO 60g/m 1snack diet. Add Glucerna (vary) to meals TID, for increased kcal intake. Provides 220 kcal and 10 g Pro per serving. Will continue to follow and reassess as pt needs and status change. MONITOR/EVALUATE: PO Intake; Plan of Care; Hydration Status; Weight Status; Lab Values Donald Stauffer, MS, RD, LD"
[2019-06-05] MEDS: DIAZEPAM 2 MG (VALIUM) TAB PO PRN (17:09)
[2019-06-05] MEDS ORDERED: fentaNYL PATCH 25 MCG (DURAGESIC) TD SCH (18:45)
[2019-06-05] MEDS ORDERED: fentaNYL PATCH 100 MCG (DURAGESIC) TD SCH (18:45)
[2019-06-05] MEDS ORDERED: morphine PCA 100 MG/100 ML BAG IV PRN (18:45)
--- NOTE | 2019-06-05 18:45 | NUR ---
PT STATES TO THIS RN THAT "PAIN IS ALWAYS A 10". DR GAO ON FLOOR AND NOTIFIED OF PT'S PAIN, NEW ORDERS RECEIVED TO
--- NOTE | 2019-06-05 20:31 | NUR ---
PT COMPLAINING OF PAIN IN [place]. RATING PAIN 10 OUT OF 10. FLUSHED CATHETER WITH 30CC WATER. WITH RETURN OF 400CC URINE WITH LARGE AMT OF SEDIMENT. PAIN RELIEVED IMMEDIATELY. PT RESTING COMFORTABLY AT THIS TIME. WILL CONTINUE TO MONITOR.
[2019-06-05] MEDS: ZOLPIDEM 5 MG (AMBIEN) TAB PO PRN (20:55)
[2019-06-05] MEDS: DOCUSATE SODIUM 100 MG (COLACE) CAP PO SCH (20:55)
[2019-06-05] MEDS ORDERED: ANIDULAFUNGIN INJECTION 200 MG in NS (IVPB) 250 ML IV ONE (21:00)
[2019-06-06] VITALS (19 sets, daily range): BP systolic 103–171; BP diastolic 52–96
[2019-06-06] MEDS: PIPERACILLIN/TAZO 4.5 GM/NS 100 ML IV SCH ×6 (03:29→19:52)
[2019-06-06] MEDS: HEParin DRIP 25000 UNIT/500ML 500 ML IV SCH (03:38)
[2019-06-06 03:50] LABS: BASOPHILS % (AUTO) 0 % (0-10); EOSINOPHILS # (AUTO) 0.2 10^3/uL (0.0-0.3); EOSINOPHILS % (AUTO) 2 % (0-10); HEMATOCRIT 34 % (40-54); HEMOGLOBIN 11.5 G/DL (13.3-17.7); LYMPHOCYTES % (AUTO) 11 % (12-44); MEAN CORPUSCULAR HEMOGLOBIN 27 PG (25-34); MEAN CORPUSCULAR HGB CONC 33 G/DL (32-36); MEAN CORPUSCULAR VOLUME 80 FL (80-99); MEAN PLATELET VOLUME 9.4 FL (7.4-10.4); MONOCYTES # (AUTO) 0.6 X 10^3 (0.0-1.0); MONOCYTES % (AUTO) 7 % (0-12); NEUTROPHILS # (AUTO) 7.2 X 10^3 (1.8-7.8); NEUTROPHILS % (AUTO) 81 % (42-75); PLATELET COUNT 252 10^3/uL (130-400)
[2019-06-06 04:07] LABS: BUN/CREATININE RATIO 13; CALCIUM 7.5 MG/DL (8.5-10.1); CARBON DIOXIDE 27 MMOL/L (21-32); CHLORIDE 104 MMOL/L (98-107); GFR ESTIMATED > 60; GLUCOSE 241 MG/DL (70-105); MAGNESIUM 1.8 MG/DL (1.6-2.4); PHOSPHORUS 3.3 MG/DL (2.3-4.7); POTASSIUM 3.7 MMOL/L (3.6-5.0); SODIUM 139 MMOL/L (135-145)
[2019-06-06] MEDS: POTASSIUM CL 10MEQ/50ML IVPB 50 ML IV SCH (04:14)
[2019-06-06] MEDS: KCL 20 MEQ TAB (K-DUR) PO SCH (04:14)
[2019-06-06] MEDS: MAGNESIUM 1 GM/100 ML IVPB 100 ML IV SCH (04:14)
--- NOTE | 2019-06-06 05:02 | Pulmonary Progress Note ---
Subjective Time Seen by a Provider: 04:58 Subjective/Events-last exam Pt had increased pain last night secondary to occluded foly cath. RN flushed catheter and pt's discomfort/agitation resolved. Sepsis Event Evaluation Height, Weight, BMI Height: 5'8.00" Weight: 242lbs. 2.0oz. 109.849236rh; 33.52 BMI Method: Exam Exam Vital Signs Date Time Temp Pulse Resp B/P (MAP) Pulse Ox O2 Delivery O2 Flow Rate FiO2 06/06/19 04:00 72 11 148/92 (110) 96 Nasal Cannula 2.00 06/06/19 03:45 Nasal Cannula 2.00 06/06/19 03:40 36.3 06/06/19 03:00 63 12 139/78 (98) 96 Nasal Cannula 2.00 06/06/19 02:02 95 Room Air 06/06/19 02:00 65 18 133/66 (88) 95 Nasal Cannula 2.00 06/06/19 01:00 65 06/06/19 01:00 65 16 140/72 (94) 95 Nasal Cannula 2.00 06/06/19 00:00 67 18 134/72 (92) 96 Nasal Cannula 2.00 06/05/19 23:44 Nasal Cannula 2.00 06/05/19 23:05 36.3 Nasal Cannula 2.00 06/05/19 23:00 66 17 130/80 (97) 97 Nasal Cannula 2.00 06/05/19 22:00 70 15 130/50 (76) 94 Nasal Cannula 2.00 06/05/19 21:57 72 16 93 Nasal Cannula 2.00 06/05/19 21:32 92 Room Air 06/05/19 21:00 73 24 150/78 (102) 89 Room Air 06/05/19 20:06 36.0 06/05/19 20:00 73 162/95 (117) 93 Room Air 06/05/19 19:45 83 168/104 (125) 96 Room Air 06/05/19 19:30 Room Air 06/05/19 19:00 84 06/05/19 19:00 84 15 191/122 (145) 94 Room Air 06/05/19 18:12 92 Room Air 06/05/19 18:00 78 37 178/108 (131) 91 Room Air 06/05/19 17:05 36.8 12 06/05/19 17:00 83 12 181/94 (123) 89 Room Air 06/05/19 16:28 100 Room Air 06/05/19 16:00 72 12 158/89 (112) 92 Room Air 06/05/19 15:55 35.6 06/05/19 15:20 92 Room Air 06/05/19 15:00 93 14 142/79 (100) Room Air 06/05/19 14:00 90 13 176/63 (100) 90 Room Air 06/05/19 13:00 80 26 168/100 (122) 94 Room Air 06/05/19 13:00 80 06/05/19 12:22 100 Room Air 06/05/19 12:00 81 13 190/172 (178) 87 Room Air 06/05/19 12:00 36.8 06/05/19 11:00 87 36 160/90 (113) 93 Room Air 06/05/19 10:04 100 Room Air 06/05/19 10:00 88 23 140/89 (106) 100 Room Air 06/05/19 09:00 86 22 159/92 (114) 100 Room Air 06/05/19 08:45 100 Room Air 06/05/19 08:00 86 29 168/82 (110) 94 Room Air 06/05/19 07:00 81 34 175/112 (133) 100 Room Air 06/05/19 07:00 82 06/05/19 06:00 80 32 129/84 (99) 100 Room Air 06/05/19 05:20 81 29 153/82 (105) 100 Room Air I & O 06/06/19 07:00 Intake Total 3125 ml Output Total 5625 ml Balance -2500 ml Height & Weight Height: 5'8.00" Weight: 242lbs. 2.0oz. 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 Norm as Tested Skin: Normal Color Lymphatic: No Adenopathy Results Lab Laboratory Tests 06/04/19 14:55 06/05/19 03:45 06/05/19 05:45 06/06/19 03:30 Assessment/Plan Assessment/Plan right perirectal soft tissue infection/cellulitis concerning for necrotizing infection with air in soft tissues by ct scan s/p debridement -Zosyn/Clindamycin -Vacomycin dc'd 06/05 -Eraxis was started 06/05 -Pain control -surgery following UTI with Klebsiella Bacteremia secondary to UTI -Repeat UA IDDM -Levemir changed to 5units QHS secondary to hypoglycemia -DM diet Hx of ASMITA -Obtain home machine if available CAD SANDY CHASE DO Jun 06, 2019 05:01
[2019-06-06] MEDS: CLINDAMYCIN 900 MG/50 ML IVPB 50 ML IV SCH ×2 (05:17→14:09)
[2019-06-06] MEDS: inSUlin ASPART (NovoLOG) 1 UNIT/0.01 ML (CHARGE PER UNIT) SC SCH ×4 (05:17→22:36)
[2019-06-06 06:10] LABS: BILIRUBIN,URINE NEGATIVE (NEGATIVE); CLARITY,URINE CLOUDY; COLOR,URINE YELLOW; GLUCOSE, URINE (UA) 3+ (NEGATIVE); KETONES,URINE NEGATIVE (NEGATIVE); LEUKOCYTE ESTERASE ,URINE 2+ (NEGATIVE); NITRITE,URINE NEGATIVE (NEGATIVE); PH,URINE 5.5 (5-9); PROTEIN,URINE NEGATIVE (NEGATIVE)
[2019-06-06 06:33] LABS: RBC,URINE >100 /HPF
[2019-06-06 06:42] LABS: BACTERIA,URINE LARGE /HPF; SQUAMOUS EPITHELIAL CELL,UR RARE /HPF; WBC,URINE 25-50 /HPF; YEAST,URINE LARGE /HPF
--- NOTE | 2019-06-06 07:59 | Progress Note ---
Subjective Subjective/Events-last exam Had BM but complained of bladder spasms and requested diazepam. Found to have clog in urine catheter per patient report. Feeling much better today. Objective Exam Last Set of Vital Signs Vital Signs Date Time Temp Pulse Resp B/P (MAP) Pulse Ox O2 Delivery O2 Flow Rate FiO2 06/06/19 07:27 92 Room Air 06/06/19 06:00 68 13 114/66 (82) 2.00 06/06/19 03:40 36.3 Capillary Refill : Less Than 3 Seconds I&O Intake and Output 06/06/19 00:00 Intake Total 4605 ml Output Total 5525 ml Balance -920 ml Intake Oral 1635 ml IV Total 2970 ml Output Urine Total 5525 ml General: Alert, No Acute Distress Lungs: Clear to Auscultation, Normal Air Movement Heart: Regular Rate, No Murmurs Abdomen: Normal Bowel Sounds, Soft Psych/Mental Status: Mood NL Results/Procedures Lab Laboratory Tests 06/05/19 10:30: Activated Partial Thromboplast Time 113H 06/05/19 11:21: Glucometer 309H 06/05/19 15:54: Glucometer 229H 06/05/19 16:15: Activated Partial Thromboplast Time 57H 06/05/19 20:04: Glucometer 148H 06/05/19 22:55: Activated Partial Thromboplast Time 67H 06/06/19 03:30: White Blood Count 9.0, Red Blood Count 4.30L, Hemoglobin 11.5L, Hematocrit 34L, Mean Corpuscular Volume 80, Mean Corpuscular Hemoglobin 27, Mean Corpuscular Hemoglobin Concent 33, Red Cell Distribution Width 14.0, Platelet Count 252, Mean Platelet Volume 9.4, Neutrophils (%) (Auto) 81H, Lymphocytes (%) (Auto) 11L , Monocytes (%) (Auto) 7, Eosinophils (%) (Auto) 2, Basophils (%) (Auto) 0, Neutrophils # (Auto) 7.2, Lymphocytes # (Auto) 1.0, Monocytes # (Auto) 0.6, Eosinophils # (Auto) 0.2, Basophils # (Auto) 0.0, Sodium Level 139, Potassium Level 3.7, Chloride Level 104, Carbon Dioxide Level 27, Anion Gap 8, Blood Urea Nitrogen 12, Creatinine 0.90, Estimat Glomerular Filtration Rate > 60, BUN/Creatinine Ratio 13, Glucose Level 241H, Calcium Level 7.5L, Phosphorus Level 3.3, Magnesium Level 1.8 06/06/19 05:30: Activated Partial Thromboplast Time 94H, Urine Color YELLOW, Urine Clarity CLOUDY, Urine pH 5.5, Urine Specific [place] 1.010L, Urine Protein NEGATIVE, Urine Glucose (UA) 3+H, Urine Ketones NEGATIVE, Urine Nitrite NEGATIVE, Urine Bilirubin NEGATIVE, Urine Urobilinogen 0.2, Urine Leukocyte Esterase 2+H, Urine RBC (Auto) 2+H, Urine RBC >100H, Urine WBC 25-50H, Urine Squamous Epithelial Cells RARE, Urine Crystals NONE, Urine Bacteria LARGEH, Urine Casts NONE, Urine Mucus NEGATIVE, Urine Yeast LARGEH, Urine Culture Indicated YES Microbiology 06/02/19 MRSA Screen - Final, Complete 06/02/19 Gram Stain - Final, Resulted 06/02/19 Anaerobic Culture - Preliminary, Resulted Bacteroides ovatus See Comments 06/02/19 Wound Culture - Final, Resulted Escherichia coli Strep anginosus Lactobacillus gasseri YEAST 06/01/19 Blood Culture - Final, Complete Klebsiella pneumoniae 06/01/19 Urine Culture - Final, Complete Klebsiella pneumoniae Assessment/Plan Assessment/Plan (1) Necrotizing cellulitis Status: Acute Assessment & Plan: Surgery consulted, initial I&D done and plan to go back to OR today. On clindamycin, zosyn and vancomycin. 06/05 s/p debridement yesterday, continue clindamycin and zosyn, no MRSA noted, will d/c vancomycin. 06/06 continue clindamycin and zosyn (2) Diabetes mellitus, type 2 Status: Chronic Assessment & Plan: Levemir, sliding scale insulin. Qualifiers: (3) Chronic pain Status: Chronic Assessment & Plan: On fentany and dilaudid at home. 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 06/05 converted home meds to morphine equivalents, and is currently able to get nearly double home dosing with RN MDS COORDINATOR settings, will not adjust at this time. 06/06 fentanyl patch restarted yesterday per Dr. Tam. Will d/c RN MDS COORDINATOR and resume home dilaudid for breakthrough. Qualifiers: Qualified Codes: G89.4 - Chronic pain syndrome (4) Acute renal insufficiency Status: Resolved (5) Lymphadenopathy Assessment & Plan: Suspect related to cellulitis, but may need to consider follow up outpatient. (6) Hydroureteronephrosis Status: Acute (7) Urinary tract infection Assessment & Plan: Klebsiella in urine and blood. Abx as noted above. (8) Thrombosis of left popliteal vein Assessment & Plan: Started on heparin drip to procedure, will transition when okay with Surgery (9) DVT prophylaxis Status: Acute Assessment & Plan: Now on treatment due to DVT noted above. Clinical Quality Measures DVT/VTE Risk/Contraindication: Risk Factor Score Per Nursin RFS Level Per Nursing on Admit: 4+=Very High KAYLEE WATT MD Jun 06, 2019 07:59
--- NOTE | 2019-06-06 08:41 | Diagnostic Imaging Report ---
INDICATION: Hyperglycemia. Perirectal cellulitis. COMPARISON: 06/05/2019 chest. FINDINGS: Portable exam. Heart remains mildly enlarged. The lungs show improved aeration. No infiltrates are demonstrated. Right central line unchanged. There has been decrease in small left basilar pleural effusion and atelectasis. IMPRESSION: Overall appearance shows improvement when compared with previous exam. Dictated by: Dictated on workstation # [id number]
[2019-06-06] MEDS: lisINopril 5 MG (PRINIVIL) TABLET PO SCH (08:43)
[2019-06-06] MEDS: DOCUSATE SODIUM 100 MG (COLACE) CAP PO SCH ×3 (08:43→22:36)
[2019-06-06] MEDS: DAKIN'S 1/4 STRENGTH (0.125%) 473 ML BTL TOP SCH ×2 (08:43→22:43)
[2019-06-06] MEDS: MUPIROCIN 2% OINT 22 GM (BACTROBAN) TUBE TOP SCH ×2 (08:43→22:43)
--- NOTE | 2019-06-06 08:49 | Physical Therapy Daily Note ---
PT Daily Note-Current Subjective Patient agreeable to therapy at this time. Patient reports that he slept well last night. Appearance Patient in recliner with call light and bedside table within reach. Mental Status Patient Orientation: Person, Place, Time, Situation Attachments: Oxygen, Evans Catheter, IV Transfers SCALE: Activities may be completed with or without assistive devices. 2-Nciytrbtzg-wcgsoty completes the activity by him/herself with no assistance from a helper. 5-Set-up or Clean-up Assistance-helper sets up or cleans up; patient completes activity. [place] assists only prior to or following the activity. 4-Supervision or Touching Assistance-helper provides verbal cues and/or touching/steadying and/or contact guard assistance as patient completes activity. Assistance may be provided throughout the activity or intermittently. 3-Partial/Moderate Assistance-helper does LESS THAN HALF the effort. [place] lifts, holds or supports trunk or limbs, but provides less than half the effort. 2-Substantial/Maximal Assistance-helper does MORE THAN HALF the effort. [place] lifts or holds trunk or limbs and provides more than half the effort. 3-Cwrfwyxdg-fmnxky does ALL the effort. Patient does none of the effort to complete the activity. Or, the assistance of 2 or more helpers is required for the patient to complete the activity. If activity was not attempted, code reason: 7-Patient Refused. 9-Not Applicable-not attempted and the patient did not perform the activity before the current illness, exacerbation or injury. 10-Not Attempted due to Environmental Limitations-(lack of equipment, weather restraints, etc.). 88-Not Attempted due to Medical Conditions or Safety Concerns. Roll Left & Right (QC): 3 Lying to Sitting/Side of Bed(Q: 3 Sit to Stand (QC): 4 (CGA for safety) Chair/Wjb-xo-Lcivb Xfer(QC): 4 (CGA for safety) Gait Training Does the Patient Walk?: No and Walking Goal IS indicated Exercises Standing: Marching (10BLE) Treatments BLE exercises, bed mobility, transfers. Assessment Current Status: Fair Progress Patient needed assist sitting up due to pain and trunk weakness, patient was able to move legs during bed mobility. Patient performed stand pivot transfer to get into chair and prior to sitting performed standing exercises but fatigued quickly. PT Agents' Records Clerk Goals Agents' Records Clerk Goals PT Agents' Records Clerk Goals Time Frame: Jun 22, 2019 Roll Left & Right (QC): 6 Sit to Lying (QC): 6 Lying-Sitting on Side/Bed(QC): 6 Sit to Stand (QC): 6 Chair/Eru-qh-Umwvl Xfer(QC): 6 Toilet Transfer (QC): 6 Does the Patient Walk: Yes Walk 10 feet (QC): 6 Walk 50ft with 2 Turns (QC): 6 Walk 150 ft (QC): 6 1 Step (curb) (QC): 6 PT Plan Problem List Problem List: Activity Tolerance, Functional Strength, Safety, Balance, Gait, T ransfer, Bed Mobility, ROM Treatment/Plan Treatment Plan: Continue Plan of Care Treatment Plan: Bed Mobility, Education, Functional Activity [place], Functional Strength, Gait, Safety, Therapeutic Exercise, Transfers Treatment Duration: Jun 22, 2019 Frequency: 6 times per week Estimated Hrs Per Day: .25 hour per day Patient and/or Family Agrees t: Yes Safety Risks/Education Patient Education: Transfer Techniques Teaching Recipient: Patient Teaching Methods: Discussion Response to Teaching: Reinforcement Needed Time/GCodes Time In: 825 Time Out: 840 Total Billed Treatment Time: 15 Total Billed Treatment 1 visit FA 15 FLOR ROBERTSON PT Jun 06, 2019 08:49
[2019-06-06] MEDS ORDERED: ANIDULAFUNGIN 200 MG/NS 250 ML IVPB IV ONE ×2 (09:00)
--- NOTE | 2019-06-06 09:28 | Progress Note - Surgery ---
[facility] 06/06/19 0928: Subjective Date Seen by a Provider: Jun 06, 2019 Time Seen by a Provider: 09:25 Subjective/Events-last exam Pt feeling a lot better today with pain improved. Denies any N/V/abd pain, constipation, fever, or chills at this time. Review of Systems General: No Chills, No Fatigue Pulmonary: No Dyspnea, No Cough Cardiovascular: No: Chest Pain, Palpitations Gastrointestinal: No: Nausea, Vomiting, Abdominal Pain Objective Exam Vital Signs Date Time Temp Pulse Resp B/P (MAP) Pulse Ox O2 Delivery O2 Flow Rate FiO2 06/06/19 08:00 Nasal Cannula 2.00 06/06/19 07:30 36.4 06/06/19 07:27 92 Room Air 06/06/19 07:00 69 06/06/19 06:00 68 13 114/66 (82) 90 Nasal Cannula 2.00 06/06/19 05:00 70 19 121/55 (77) 94 Nasal Cannula 2.00 06/06/19 04:00 72 11 148/92 (110) 96 Nasal Cannula 2.00 06/06/19 03:45 Nasal Cannula 2.00 06/06/19 03:40 36.3 06/06/19 03:00 63 12 139/78 (98) 96 Nasal Cannula 2.00 06/06/19 02:02 95 Room Air 06/06/19 02:00 65 18 133/66 (88) 95 Nasal Cannula 2.00 06/06/19 01:00 65 06/06/19 01:00 65 16 140/72 (94) 95 Nasal Cannula 2.00 06/06/19 00:00 67 18 134/72 (92) 96 Nasal Cannula 2.00 06/05/19 23:44 Nasal Cannula 2.00 06/05/19 23:05 36.3 Nasal Cannula 2.00 06/05/19 23:00 66 17 130/80 (97) 97 Nasal Cannula 2.00 06/05/19 22:00 70 15 130/50 (76) 94 Nasal Cannula 2.00 06/05/19 21:57 72 16 93 Nasal Cannula 2.00 06/05/19 21:32 92 Room Air 06/05/19 21:00 73 24 150/78 (102) 89 Room Air 06/05/19 20:06 36.0 06/05/19 20:00 73 162/95 (117) 93 Room Air 06/05/19 19:45 83 168/104 (125) 96 Room Air 06/05/19 19:30 Room Air 06/05/19 19:00 84 06/05/19 19:00 84 15 191/122 (145) 94 Room Air 06/05/19 18:12 92 Room Air 06/05/19 18:00 78 37 178/108 (131) 91 Room Air 06/05/19 17:05 36.8 12 06/05/19 17:00 83 12 181/94 (123) 89 Room Air 06/05/19 16:28 100 Room Air 06/05/19 16:00 72 12 158/89 (112) 92 Room Air 06/05/19 15:55 35.6 06/05/19 15:20 92 Room Air 06/05/19 15:00 93 14 142/79 (100) Room Air 06/05/19 14:00 90 13 176/63 (100) 90 Room Air 06/05/19 13:00 80 26 168/100 (122) 94 Room Air 06/05/19 13:00 80 06/05/19 12:22 100 Room Air 06/05/19 12:00 81 13 190/172 (178) 87 Room Air 06/05/19 12:00 36.8 06/05/19 11:00 87 36 160/90 (113) 93 Room Air 06/05/19 10:04 100 Room Air 06/05/19 10:00 88 23 140/89 (106) 100 Room Air I & O 06/06/19 07:00 Intake Total 3515 ml Output Total 6625 ml Balance -3110 ml Capillary Refill : Less Than 3 Seconds General Appearance: No Apparent Distress, Obese HEENT: PERRL/EOMI Neck: Full Range of Motion, Normal Inspection Respiratory: Chest Non Tender, No Accessory Muscle Use, No Respiratory Distress Cardiovascular: Regular Rate, Rhythm Gastrointestinal: non tender, soft, hernia Neurologic/Psychiatric: Alert, Oriented x3, Normal Mood/Affect, gynecology teacher II-XII Norm as Tested Skin: Normal Color, Other (R buttock wound, packed, no surrounding erythema, minimal deep tissue discolouration, mild drainage) Lymphatic: No Adenopathy Results Lab Laboratory Tests 06/05/19 10:30: Activated Partial Thromboplast Time 113H 06/05/19 11:21: Glucometer 309H 06/05/19 15:54: Glucometer 229H 06/05/19 16:15: Activated Partial Thromboplast Time 57H 06/05/19 20:04: Glucometer 148H 06/05/19 22:55: Activated Partial Thromboplast Time 67H 06/06/19 03:30: White Blood Count 9.0, Red Blood Count 4.30L, Hemoglobin 11.5L, Hematocrit 34L, Mean Corpuscular Volume 80, Mean Corpuscular Hemoglobin 27, Mean Corpuscular Hemoglobin Concent 33, Red Cell Distribution Width 14.0, Platelet Count 252, Mean Platelet Volume 9.4, Neutrophils (%) (Auto) 81H, Lymphocytes (%) (Auto) 11L , Monocytes (%) (Auto) 7, Eosinophils (%) (Auto) 2, Basophils (%) (Auto) 0, Neutrophils # (Auto) 7.2, Lymphocytes # (Auto) 1.0, Monocytes # (Auto) 0.6, Eosinophils # (Auto) 0.2, Basophils # (Auto) 0.0, Sodium Level 139, Potassium Level 3.7, Chloride Level 104, Carbon Dioxide Level 27, Anion Gap 8, Blood Urea Nitrogen 12, Creatinine 0.90, Estimat Glomerular Filtration Rate > 60, BUN/Creatinine Ratio 13, Glucose Level 241H, Calcium Level 7.5L, Phosphorus Level 3.3, Magnesium Level 1.8 06/06/19 05:30: Activated Partial Thromboplast Time 94H, Urine Color YELLOW, Urine Clarity CLOUDY, Urine pH 5.5, Urine Specific [place] 1.010L, Urine Protein NEGATIVE, Urine Glucose (UA) 3+H, Urine Ketones NEGATIVE, Urine Nitrite NEGATIVE, Urine Bilirubin NEGATIVE, Urine Urobilinogen 0.2, Urine Leukocyte Esterase 2+H, Urine RBC (Auto) 2+H, Urine RBC >100H, Urine WBC 25-50H, Urine Squamous Epithelial Cells RARE, Urine Crystals NONE, Urine Bacteria LARGEH, Urine Casts NONE, Urine Mucus NEGATIVE, Urine Yeast LARGEH, Urine Culture Indicated YES Microbiology 06/02/19 MRSA Screen - Final, Complete 06/02/19 Gram Stain - Final, Resulted 06/02/19 Anaerobic Culture - Preliminary, Resulted Bacteroides ovatus See Comments 06/02/19 Wound Culture - Final, Resulted Escherichia coli Strep anginosus Lactobacillus gasseri YEAST 06/01/19 Blood Culture - Final, Complete Klebsiella pneumoniae 06/01/19 Urine Culture - Final, Complete Klebsiella pneumoniae Assessment/Plan Assessment/Plan Assessment/Plan Right perirectal necrotizing soft tissue infection/cellulitis- s/p i and d, debridement, irrigated and repacked wound; Further debridement 2 days ago, receiving ABX (Vanco, Clinda, Pip/Tazo) MRSA was isolated from nasal sample E. coli, strep anginosus, and rare yeast were isolate from wound culture Leukocytosis, Klebsiella UTI, Klebsiella also identified in blood cultures CXR shows Right perihilar & basilar infiltrate vs atelectasis Loss of domain ventral hernia Enlarged retroperitoneal lymphadenopathy, may be secondary to infection Diabetes, uncontrolled Left lower extremity swelling, Venous U/S showed partially occlusive DVT in L popliteal V, started on anticoagulants D/C Valderrama catheter Start PICC line and d/c Central line after D/C heparin drip, started on Lovenox Continue with same plan for Pain control wound care, wound at this time looks to be continuing to improve conitnue abx & eraxis Clinical Quality Measures DVT/VTE Risk/Contraindication: Risk Factor Score Per Nursin RFS Level Per Nursing on Admit: 4+=Very High MONTY GAO DO 06/06/19 1521: Subjective Subjective/Events-last exam pain better controlled. tolerating diet. no new complaints. denies n/v fever sweats chills shortness of breath or chest pain. wbc down Objective Exam General Appearance: Obese HEENT: PERRL/EOMI Neck: Full Range of Motion, Normal Inspection, Non Tender Respiratory: Chest Non Tender, No Accessory Muscle Use, No Respiratory Distress Cardiovascular: Regular Rate, Rhythm Gastrointestinal: non tender, soft, hernia (loss of domain ventral hernia) Extremity: Swelling (lle) Neurologic/Psychiatric: Alert, Oriented x3, Normal Mood/Affect, gynecology teacher II-XII Norm as Tested Skin: Normal Color, Warm/Dry Lymphatic: No Adenopathy Assessment/Plan Assessment/Plan Assessment/Plan Right perirectal necrotizing soft tissue infection/cellulitis- s/p i and d, debridement, irrigated and repacked wound; Further debridement 2 days ago, recei ving ABX (Vanco, Clinda, Pip/Tazo, Eraxis) MRSA was isolated from nasal sample E. coli, strep anginosus, and rare yeast were isolate from wound culture Leukocytosis, Klebsiella UTI, Klebsiella also identified in blood cultures CXR shows Right perihilar & basilar infiltrate vs atelectasis Loss of domain ventral hernia Enlarged retroperitoneal lymphadenopathy, may be secondary to infection Diabetes, uncontrolled Left lower extremity swelling, Venous U/S showed partially occlusive DVT in L popliteal V, started on anticoagulants get picc line dc central line change heparin drip to Lovenox dc valderrama continue wound care likely move to floor today Supervisory-Addendum Brief Verification & Attestation Participated in pt care: history, MDM, physical Personally performed: exam, history, MDM, supervision of care Care discussed with: Medical Student Procedures: n/a Results interpretation: Verified all documentation Verification and Attestation of Medical Student E/M Service A medical student performed and documented this service in my presence. I reviewed and verified all information documented by the medical student and made modifications to such information, when appropriate. I personally performed the physical exam and medical decision making. Monty Goa, Jun 06, 2019,15:21 [facility] Jun 06, 2019 09:28 MONTY GAO DO Jun 06, 2019 15:21
--- NOTE | 2019-06-06 11:00 | NUR ---
Verbal orders received from for patient to get a PICC line, then once PICC line is in place and placement is confirmed to remove central line, to remove valderrama catheter and to stop Heparin drip. ok with patient going to 4th floor. on ICU this nurse updated him on patient and asked what anticoagulant he would like patient to be on. put in orders. ok with patient going to 4th floor. on ICU floor, this nurse updated her on patient. ok with patient going to 4th floor. 1115 Heparin drip stopped per 's orders. at bedside. 1123 this nurse called day surg and updated PICC nurse on order placed for PICC line. 1200 valderrama catheter removed. 1330 patient voided 130mL without difficulty. 1345 PICC nurse in patients room.
--- NOTE | 2019-06-06 11:34 | Cardiology Progress Note ---
Subjective Date Seen by Provider: Jun 06, 2019 Time Seen by Provider: 11:32 Subjective/Events-last exam Patient is in bed, denies any chest pain or palpitations. Review of Systems General: No Chills, No Night Sweats; Fatigue, Malaise; No Appetite, No Other HEENT: No Head Aches, No Visual Changes, No Eye Pain, No Ear Pain, No Dysphasia, No Sinus Congestion, No Post Nasal Drip, No Sore Throat, No Other Pulmonary: Dyspnea; No Cough, No Pleuritic Chest Pain, No Other Cardiovascular: No: Chest Pain, Palpitations, Orthopnea, Paroxysmal Noc. Dyspnea, Edema, Lt Headedness, Other Objective-Cardiology Exam Last Set of Vital Signs Vital Signs 06/06/19 06/06/19 06/06/19 07:30 10:00 10:20 Temp 36.4 Pulse 81 Resp 25 B/P (MAP) 127/96 (106) Pulse Ox 96 O2 Delivery Nasal Cannula O2 Flow Rate 2.00 Capillary Refill : Less Than 3 Seconds I&O Intake and Output 06/06/19 00:00 Intake Total 4605 ml Output Total 5525 ml Balance -920 ml Intake Oral 1635 ml IV Total 2970 ml Output Urine Total 5525 ml General: Alert, Other (moaning in pain, states due to trying to have BM) HEENT: Atraumatic Neck: Supple Lungs: Clear to Auscultation, Normal Air Movement Heart: Regular Rate, Normal S1, Normal S2, No Murmurs Abdomen: Normal Bowel Sounds, Other (large hernia, mild distension, mild ttp) Extremities: No Clubbing Neuro: Normal Speech Psych/Mental Status: Mental Status NL Results Lab Laboratory Tests 06/06/19 03:30 A/P-Cardiology Admission Diagnosis Atrial flutter Coronary artery disease Sepsis Diabetes mellitus Assessment/Plan Paroxysmal atrial flutter, had transient episode, returned to sinus rhythm, no previous history of arrhythmia. Continue to monitor on telemetry. Continue on beta blockers and monitor. Coronary artery disease, history of stent done about 2 years ago, no recent cardiac workup, no active chest pain. No shortness of breath. Continue to mo nitor. Consider stress test as outpatient. Perirectal abscess with possible early necrotizing fasciitis, treated aggressively, receiving antibiotic and had debridement, managed by Dr. Tam Left thigh pain, ultrasound showed nonocclusive DVT in the left popliteal vein, started on heparin drip, I will switch him to Lovenox when deemed reasonable with Dr. Tam Diabetes mellitus, followed and managed by primary care physician Patient was seen and evaluated with Sally, examination performed, management plan was discussed, agree with the current scribed note, I made few changes to the note using Italic font Patient is feeling better today. Less pain Changing to Lovenox and evaluate tolerance then we will consider using oral anticoagulation Continue to monitor blood pressure and heart rate Clinical Quality Measures DVT/VTE Risk/Contraindication: Risk Factor Score Per Nursin RFS Level Per Nursing on Admit: 4+=Very High SALLY HUBER Jun 06, 2019 11:33 ANA MARIA LOVELL MD Jun 06, 2019 11:54
[2019-06-06] MEDS: DIAZEPAM 2 MG (VALIUM) TAB PO PRN (13:46)
--- NOTE | 2019-06-06 14:00 | NUR ---
This nurse called SBAR report to Ally LAY on 4th floor, patient is going to be transferring to room 421.
[2019-06-06] MEDS: ENOXAPARIN 100 MG/1 ML (LOVENOX) SYR SC SCH (14:08)
--- NOTE | 2019-06-06 15:35 | NUR ---
PT TO ROOM 421 VIA BED ACCOMPANIED BY RN AND PT FAMILY. PT INTRODUCED TO SURROUNDINGS. PT PERSONAL BELONGINGS WITH PT TO NEW ROOM.
--- NOTE | 2019-06-06 17:00 | NUR ---
60mL morphine from D/C'd morphine [employer] wasted with Abimael LAY.
[2019-06-06] MEDS: LACTATED RINGERS 1,000 ML IV SCH (17:12)
[2019-06-06] MEDS: TAMSULOSIN 0.4 MG (FLOMAX) CAP PO SCH (17:21)
--- NOTE | 2019-06-06 21:50 | NUR ---
PT B/P 171/75 AUTOMATICALLY, AND 168/[address] WATT NOTIFIED, NEW ORDERS RECEIVED, SEE ORDER HISTORY
--- NOTE | 2019-06-06 22:30 | NUR ---
PT DRESSING CHANGE DONE AT THIS TIME. PACKED WITH DAKINS SOAKED 4X4 GAUZE, 4X4 GAUZE PLACED OVER, AND TAPED DOWN. PT TOLERATED WELL. WILL CONTINUE TO MONITOR
[2019-06-06] MEDS: HYDROmorphone (DILAUDID) 4 MG TAB PO PRN (22:36)
[2019-06-06] MEDS: CARVEDILOL 3.125 MG (COREG) TABLET PO SCH (22:36)
[2019-06-07] VITALS: BP 128/62
[2019-06-07] MEDS: ENOXAPARIN 100 MG/1 ML (LOVENOX) SYR SC SCH ×2 (00:27→12:10)
[2019-06-07] MEDS: CLINDAMYCIN 900 MG/50 ML IVPB 50 ML IV SCH ×4 (00:27→22:27)
[2019-06-07] MEDS: LACTATED RINGERS 1,000 ML IV SCH ×2 (00:40→13:25)
[2019-06-07] MEDS: ZOLPIDEM 5 MG (AMBIEN) TAB PO PRN (01:18)
[2019-06-07] MEDS: PIPERACILLIN/TAZO 4.5 GM/NS 100 ML IV SCH ×6 (03:51→20:44)
[2019-06-07 04:30] VITALS: BP 132/71
[2019-06-07] MEDS: inSUlin ASPART (NovoLOG) 1 UNIT/0.01 ML (CHARGE PER UNIT) SC SCH ×4 (06:19→20:45)
[2019-06-07 06:25] LABS: BASOPHILS % (AUTO) 0 % (0-10); EOSINOPHILS # (AUTO) 0.3 10^3/uL (0.0-0.3); EOSINOPHILS % (AUTO) 3 % (0-10); HEMATOCRIT 35 % (40-54); HEMOGLOBIN 11.4 G/DL (13.3-17.7); LYMPHOCYTES # (AUTO) 1.8 X 10^3 (1.0-4.0); LYMPHOCYTES % (AUTO) 20 % (12-44); MEAN CORPUSCULAR HEMOGLOBIN 26 PG (25-34); MEAN CORPUSCULAR HGB CONC 32 G/DL (32-36); MEAN CORPUSCULAR VOLUME 80 FL (80-99); MONOCYTES # (AUTO) 0.7 X 10^3 (0.0-1.0); MONOCYTES % (AUTO) 7 % (0-12); NEUTROPHILS # (AUTO) 6.4 X 10^3 (1.8-7.8); NEUTROPHILS % (AUTO) 70 % (42-75); PLATELET COUNT 313 10^3/uL (130-400); RED CELL DISTRIBUTION WIDTH 14.5 % (10.0-14.5); WHITE BLOOD COUNT 9.2 10^3/uL (4.3-11.0)
[2019-06-07] MEDS: HYDROcodone/APAP 5 MG/325 MG (LORTAB) TAB PO PRN ×5 (06:28→23:08)
[2019-06-07 06:45] LABS: BUN/CREATININE RATIO 10; CALCIUM 7.8 MG/DL (8.5-10.1); CARBON DIOXIDE 29 MMOL/L (21-32); CHLORIDE 103 MMOL/L (98-107); CREATININE SERUM 0.86 MG/DL (0.60-1.30); GFR ESTIMATED > 60; GLUCOSE 92 MG/DL (70-105); MAGNESIUM 1.6 MG/DL (1.6-2.4); POTASSIUM 3.8 MMOL/L (3.6-5.0); SODIUM 139 MMOL/L (135-145)
--- NOTE | 2019-06-07 07:07 | Progress Note ---
Subjective Subjective/Events-last exam Afebrile, no acute events. Objective Exam Last Set of Vital Signs Vital Signs Date Time Temp Pulse Resp B/P (MAP) Pulse Ox O2 Delivery O2 Flow Rate FiO2 06/07/19 00:00 36.8 81 0 128/62 (84) 95 Room Air 06/06/19 20:00 2.00 Capillary Refill : Greater Than 3 Seconds I&O Intake and Output 06/07/19 00:00 Intake Total 2750 ml Output Total 4800 ml Balance -2050 ml Intake Oral 2270 ml IV Total 480 ml Output Urine Total 4800 ml # Voids 6 General: Alert, No Acute Distress Lungs: Clear to Auscultation, Normal Air Movement Heart: Regular Rate, No Murmurs Abdomen: Normal Bowel Sounds Neuro: Normal Speech Psych/Mental Status: Mood NL Results/Procedures Lab Laboratory Tests 06/06/19 11:40: Glucometer 255H 06/06/19 16:50: Glucometer 335H 06/06/19 20:33: Glucometer 222H 06/07/19 06:13: Glucometer 94 06/07/19 06:15: White Blood Count 9.2, Red Blood Count 4.41, Hemoglobin 11.4L, Hematocrit 35L, Mean Corpuscular Volume 80, Mean Corpuscular Hemoglobin 26, Mean Corpuscular Hemoglobin Concent 32, Red Cell Distribution Width 14.5, Platelet Count 313, Mean Platelet Volume 9.0, Neutrophils (%) (Auto) 70, Lymphocytes (%) (Auto) 20, Monocytes (%) (Auto) 7, Eosinophils (%) (Auto) 3, Basophils (%) (Auto) 0, Neutrophils # (Auto) 6.4, Lymphocytes # (Auto) 1.8, Monocytes # (Auto) 0.7, Eosinophils # (Auto) 0.3, Basophils # (Auto) 0.0, Sodium Level 139, Potassium Level 3.8, Chloride Level 103, Carbon Dioxide Level 29, Anion Gap 7, Blood Urea Nitrogen 9, Creatinine 0.86, Estimat Glomerular Filtration Rate > 60, BUN/Creatinine Ratio 10, Glucose Level 92, Calcium Level 7.8L, Phosphorus Level 3.0, Magnesium Level 1.6 Microbiology 06/02/19 MRSA Screen - Final, Complete 06/02/19 Gram Stain - Final, Complete 06/02/19 Anaerobic Culture - Final, Complete Bacteroides ovatus See Comments 06/02/19 Wound Culture - Final, Complete Escherichia coli Strep anginosus Lactobacillus gasseri YEAST 06/01/19 Blood Culture - Final, Complete Klebsiella pneumoniae 06/01/19 Urine Culture - Final, Complete Klebsiella pneumoniae Assessment/Plan Assessment/Plan (1) Necrotizing cellulitis Status: Acute Assessment & Plan: Surgery consulted, initial I&D done and plan to go back to OR today. On clindamycin, zosyn and vancomycin. 06/05 s/p debridement yesterday, continue clindamycin and zosyn, no MRSA noted, will d/c vancomycin. 06/06 continue clindamycin and zosyn 06/08 continue clindamycin and zosyn (2) Diabetes mellitus, type 2 Status: Chronic Assessment & Plan: Levemir, sliding scale insulin. Qualifiers: (3) Chronic pain Status: Chronic Assessment & Plan: On fentany and dilaudid at home. Currently on morphine HANDS HANGER but remains in significant pain, will reeval dosing. 06/05 converted home meds to morphine equivalents, and is currently able to get nearly double home dosing with HANDS HANGER settings, will not adjust at this time. 06/06 fentanyl patch restarted yesterday per Dr. Tam. Will d/c HANDS HANGER and resume home dilaudid for breakthrough. 06/07 pain controlled Qualifiers: Qualified Codes: G89.4 - Chronic pain syndrome (4) Acute renal insufficiency Status: Resolved (5) Lymphadenopathy Assessment & Plan: Suspect related to cellulitis, but may need to consider follow up outpatient. (6) Hydroureteronephrosis Status: Acute (7) Urinary tract infection Assessment & Plan: Klebsiella in urine and blood. Abx as noted above. (8) Thrombosis of left popliteal vein Assessment & Plan: Started on heparin drip to procedure, will transition when okay with Surgery 2/ tolerating enoxaparin, plan to switch to oral tomorrow (9) DVT prophylaxis Status: Acute Assessment & Plan: Now on treatment due to DVT noted above. Clinical Quality Measures DVT/VTE Risk/Contraindication: Risk Factor Score Per Nursin RFS Level Per Nursing on Admit: 4+=Very High KAYLEE WATT MD Jun 07, 2019 07:07
[2019-06-07] MEDS: DOCUSATE SODIUM 100 MG (COLACE) CAP PO SCH ×2 (07:58→21:09)
[2019-06-07 08:00] VITALS: BP 148/70
[2019-06-07] MEDS: CARVEDILOL 3.125 MG (COREG) TABLET PO SCH ×2 (08:51→20:46)
[2019-06-07] MEDS: lisINopril 5 MG (PRINIVIL) TABLET PO SCH (08:51)
[2019-06-07] MEDS: MUPIROCIN 2% OINT 22 GM (BACTROBAN) TUBE TOP SCH ×2 (08:51→20:45)
[2019-06-07] MEDS: DAKIN'S 1/4 STRENGTH (0.125%) 473 ML BTL TOP SCH (08:54)
[2019-06-07] MEDS ORDERED: ANIDULAFUNGIN INJECTION 100 MG in NS (IVPB) 100 ML IV SCH (09:00)
--- NOTE | 2019-06-07 09:39 | Cardiology Progress Note ---
Subjective Date Seen by Provider: Jun 07, 2019 Time Seen by Provider: 08:45 Subjective/Events-last exam Patient is sitting up in bed. States pain continues to improve. Denies any chest pain or palpitations. Review of Systems General: No Chills, No Night Sweats, No Fatigue, No Malaise, No Appetite, No Other HEENT: No Head Aches, No Visual Changes, No Eye Pain, No Ear Pain, No Dysphasia, No Sinus Congestion, No Post Nasal Drip, No Sore Throat, No Other Pulmonary: No Dyspnea, No Cough, No Pleuritic Chest Pain, No Other Cardiovascular: No: Chest Pain, Palpitations, Orthopnea, Paroxysmal Noc. Dyspnea, Edema, Lt Headedness, Other Objective-Cardiology Exam Last Set of Vital Signs Vital Signs 06/07/19 04:30 Temp 36.0 Pulse 64 Resp 20 B/P (MAP) 132/71 (91) Pulse Ox 98 O2 Delivery Nasal Cannula O2 Flow Rate 2.00 Capillary Refill : Greater Than 3 Seconds I&O Intake and Output 06/07/19 00:00 Intake Total 2750 ml Output Total 4800 ml Balance -2050 ml Intake Oral 2270 ml IV Total 480 ml Output Urine Total 4800 ml # Voids 6 General: Alert, No Acute Distress HEENT: Atraumatic Neck: Supple Lungs: Clear to Auscultation, Normal Air Movement Heart: Regular Rate, Normal S1, Normal S2, No Murmurs Abdomen: Normal Bowel Sounds, Soft Extremities: No Clubbing Skin: No Rashes Neuro: Normal Speech Psych/Mental Status: Mood NL Results Lab Laboratory Tests 06/07/19 06:15 A/P-Cardiology Admission Diagnosis Atrial flutter Coronary artery disease Sepsis Diabetes mellitus Assessment/Plan Paroxysmal atrial flutter, had transient episode, returned to sinus rhythm, no previous history of arrhythmia. Continue to monitor on telemetry. Continue on beta blockers and monitor. Coronary artery disease, history of stent done about 2 years ago, no recent car diac workup, no active chest pain. No shortness of breath. Continue to monitor. Consider stress test as outpatient. Perirectal abscess with possible early necrotizing fasciitis, treated aggressive ly, receiving antibiotic and had debridement, managed by Dr. Tam Left thigh pain, ultrasound showed nonocclusive DVT in the left popliteal vein, maintained on Lovenox. Planning to start on OAC tomorrow. Diabetes mellitus, followed and managed by primary care physician Patient was seen and evaluated with Sally, examination performed, management plan was discussed, agree with the current scribed note, I made few changes to the note using Italic font Patient is laying down in bed, feeling better, having worsening pedal edema, receiving Lasix Continue on current medication and appear that patient is tolerating Lovenox. Planning to switch him to Eliquis prior to discharge Clinical Quality Measures DVT/VTE Risk/Contraindication: Risk Factor Score Per Nursin RFS Level Per Nursing on Admit: 4+=Very High SALLY HUBER Jun 07, 2019 9:39 am ANA MARIA LOVELL MD Jun 07, 2019 10:00 am
--- NOTE | 2019-06-07 11:01 | Progress Note - Surgery ---
[facility] 06/07/19 1101: Subjective Date Seen by a Provider: Jun 07, 2019 Time Seen by a Provider: 07:25 Subjective/Events-last exam Pain controlled at this time. Review of Systems General: No Chills, No Night Sweats HEENT: No Head Aches, No Visual Changes Pulmonary: No Dyspnea, No Cough Cardiovascular: No: Chest Pain, Palpitations Gastrointestinal: No: Nausea, Vomiting, Abdominal Pain Musculoskeletal: other (Pain to R buttock wound), back pain Objective Exam Vital Signs Date Time Temp Pulse Resp B/P (MAP) Pulse Ox O2 Delivery O2 Flow Rate FiO2 06/07/19 08:00 36.5 72 18 148/70 (96) 94 Room Air 06/07/19 04:30 36.0 64 20 132/71 (91) 98 Nasal Cannula 2.00 06/07/19 00:00 36.8 81 0 128/62 (84) 95 Room Air 06/06/19 21:00 168/72 (104) 06/06/19 20:30 37.7 81 22 171/75 (107) 96 Room Air 06/06/19 20:00 Nasal Cannula 2.00 06/06/19 16:00 Room Air 06/06/19 16:00 37.0 72 22 150/78 (102) 97 Room Air 06/06/19 15:00 74 20 152/87 (108) 94 Nasal Cannula 2.00 06/06/19 14:00 81 25 144/74 (97) 96 Nasal Cannula 2.00 06/06/19 13:00 87 06/06/19 13:00 77 18 144/85 (104) 96 Nasal Cannula 2.00 06/06/19 12:00 Nasal Cannula 2.00 06/06/19 12:00 80 26 129/60 (83) 95 Nasal Cannula 2.00 06/06/19 11:00 71 22 154/87 (109) 96 Nasal Cannula 2.00 I & O 06/07/19 06:59 Intake Total 2910 ml Output Total 1700 ml Balance 1210 ml Capillary Refill : Greater Than 3 Seconds General Appearance: No Apparent Distress, WD/WN, Obese HEENT: PERRL/EOMI Neck: Full Range of Motion, Normal Inspection, Non Tender Respiratory: Chest Non Tender, No Accessory Muscle Use, No Respiratory Distress Cardiovascular: Regular Rate, Rhythm Gastrointestinal: non tender, soft, hernia (loss of domain ventral hernia) Extremity: Swelling (lle), Other (R buttock wound w/ no surrounding erythema, no tissue discolouraiton suggestive of necrosis, mild drainage) Neurologic/Psychiatric: Alert, Oriented x3, Normal Mood/Affect, financial analyst II-XII Norm as Tested Skin: Normal Color, Warm/Dry Lymphatic: No Adenopathy Results Lab Laboratory Tests 06/06/19 11:40: Glucometer 255H 06/06/19 16:50: Glucometer 335H 06/06/19 20:33: Glucometer 222H 06/07/19 06:13: Glucometer 94 06/07/19 06:15: White Blood Count 9.2, Red Blood Count 4.41, Hemoglobin 11.4L, Hematocrit 35L, Mean Corpuscular Volume 80, Mean Corpuscular Hemoglobin 26, Mean Corpuscular Hemoglobin Concent 32, Red Cell Distribution Width 14.5, Platelet Count 313, Mean Platelet Volume 9.0, Neutrophils (%) (Auto) 70, Lymphocytes (%) (Auto) 20, Monocytes (%) (Auto) 7, Eosinophils (%) (Auto) 3, Basophils (%) (Auto) 0, Neutrophils # (Auto) 6.4, Lymphocytes # (Auto) 1.8, Monocytes # (Auto) 0.7, Eosinophils # (Auto) 0.3, Basophils # (Auto) 0.0, Sodium Level 139, Potassium Level 3.8, Chloride Level 103, Carbon Dioxide Level 29, Anion Gap 7, Blood Urea Nitrogen 9, Creatinine 0.86, Estimat Glomerular Filtration Rate > 60, BUN/Creatinine Ratio 10, Glucose Level 92, Calcium Level 7.8L, Phosphorus Level 3.0, Magnesium Level 1.6 Microbiology 06/06/19 Urine Culture - Preliminary, Resulted Yeast species 06/02/19 MRSA Screen - Final, Complete 06/02/19 Gram Stain - Final, Complete 06/02/19 Anaerobic Culture - Final, Complete Bacteroides ovatus See Comments 06/02/19 Wound Culture - Final, Complete Escherichia coli Strep anginosus Lactobacillus gasseri YEAST 06/01/19 Blood Culture - Final, Complete Klebsiella pneumoniae Assessment/Plan Assessment/Plan Assessment/Plan Right perirectal necrotizing soft tissue infection/cellulitis- s/p i and d, debridement, irrigated and repacked wound; Further debridement 2 days ago, receiving ABX (Vanco, Clinda, Pip/Tazo, Eraxis) MRSA was isolated from nasal sample E. coli, strep anginosus, and rare yeast were isolate from wound culture Leukocytosis, Klebsiella UTI, Klebsiella also identified in blood cultures CXR shows Right perihilar & basilar infiltrate vs atelectasis Loss of domain ventral hernia Enlarged retroperitoneal lymphadenopathy, may be secondary to infection Diabetes, uncontrolled Left lower extremity swelling, Venous U/S showed partially occlusive DVT in L popliteal V, started on anticoagulants Central line in place On Lovenox Pt able to void bladder after valderrama d/c yesterday Preliminary urine cultures grew yeast, pt on Anidulafungin already continue wound care Poor HTN control, Managed by Primary care team Clinical Quality Measures DVT/VTE Risk/Contraindication: Risk Factor Score Per Nursin RFS Level Per Nursing on Admit: 4+=Very High MONTY TAM DO 06/07/19 1301: Subjective Subjective/Events-last exam Patient feeling better. Tolerating diet. Pain controlled. Denies n/v fever sweats chills shortness of breath or chest pain. Refusing lovenox, back on Heparin drip. Objective Exam General Appearance: No Apparent Distress, WD/WN, Obese HEENT: PERRL/EOMI Neck: Full Range of Motion, Normal Inspection, Non Tender Respiratory: Chest Non Tender, No Accessory Muscle Use, No Respiratory Distress Cardiovascular: Regular Rate, Rhythm Gastrointestinal: non tender, soft, hernia (loss of domain ventral hernia) Extremity: Swelling (lle), Other (R buttock wound w/ no surrounding erythema, no tissue discoloraiton no necrotic tissue, no drainage.) Neurologic/Psychiatric: Alert, Oriented x3, Normal Mood/Affect Skin: Normal Color, Warm/Dry Lymphatic: No Adenopathy Assessment/Plan Assessment/Plan Assessment/Plan Right perirectal necrotizing soft tissue infection/cellulitis- s/p i and d, debridement, irrigated and repacked wound; receiving ABX (Vanco, Clinda, Pip/Tazo, Eraxis) MRSA was isolated from nasal sample E. coli, strep anginosus, and rare yeast were isolate from wound culture Leukocytosis, Klebsiella UTI, Klebsiella also identified in blood cultures CXR shows Right perihilar & basilar infiltrate vs atelectasis Loss of domain ventral hernia Enlarged retroperitoneal lymphadenopathy, may be secondary to infection Diabetes, uncontrolled Left lower extremity swelling, Venous U/S showed partially occlusive DVT in L popliteal V, started on anticoagulant, refusing lovenox, on heparin drip Will have Veraflow wound vac placed. Work on placement Supervisory-Addendum Brief Verification & Attestation Participated in pt care: history, MDM, physical Personally performed: exam, history, MDM, supervision of care Care discussed with: Medical Student Procedures: n/a Results interpretation: Verified all documentation Verification and Attestation of Medical Student E/M Service A medical student performed and documented this service in my presence. I reviewed and verified all information documented by the medical student and made modifications to such information, when appropriate. I personally performed the physical exam and medical decision making. Monty Tam, Jun 07, 2019,13:01 [facility] Jun 07, 2019 11:01 MONTY TAM DO Jun 07, 2019 13:01
--- NOTE | 2019-06-07 11:37 | Physical Therapy Daily Note ---
PT Daily Note-Current Subjective Patient is agreeable to therapy at this time and is ready to get up and move around. Appearance Patient in recliner with call light and bedside table within reach. Sister present. Mental Status Patient Orientation: Person, Place, Time, Situation Attachments: Oxygen (1L), IV Transfers SCALE: Activities may be completed with or without assistive devices. 7-Rqjfrjcpwr-zhshasq completes the activity by him/herself with no assistance from a helper. 5-Set-up or Clean-up Assistance-helper sets up or cleans up; patient completes activity. [place] assists only prior to or following the activity. 4-Supervision or Touching Assistance-helper provides verbal cues and/or touching/steadying and/or contact guard assistance as patient completes activity. Assistance may be provided throughout the activity or intermittently. 3-Partial/Moderate Assistance-helper does LESS THAN HALF the effort. [place] lifts, holds or supports trunk or limbs, but provides less than half the effort. 2-Substantial/Maximal Assistance-helper does MORE THAN HALF the effort. [place] lifts or holds trunk or limbs and provides more than half the effort. 3-Oraasbtdn-ivqqvi does ALL the effort. Patient does none of the effort to complete the activity. Or, the assistance of 2 or more helpers is required for the patient to complete the activity. If activity was not attempted, code reason: 7-Patient Refused. 9-Not Applicable-not attempted and the patient did not perform the activity before the current illness, exacerbation or injury. 10-Not Attempted due to Environmental Limitations-(lack of equipment, weather restraints, etc.). 88-Not Attempted due to Medical Conditions or Safety Concerns. Roll Left & Right (QC): 6 Sit to Lying (QC): 6 Lying to Sitting/Side of Bed(Q: 6 Sit to Stand (QC): 6 Chair/Xrn-yx-Eetbm Xfer(QC): 6 Gait Training Does the Patient Walk?: Yes Distance: 600' Walk 10 feet (QC): 6 Walk 50 ft with 2 Turns(QC): 6 Walk 150 ft (QC): 6 Gait Assistive Device: FWW Wheelchair Training Does the Pt Use a Wheelchair?: No Treatments Transfers, bed mobility, ambulation. Assessment Patient is steady during ambulation and IND. Patient encouraged to get up and walk as much as he would like on his with nursing or family to push his IV pole with him. Nursing notified. PT Mortar Maker Goals Group Home Goals PT Mortar Maker Goals Time Frame: Jun 22, 2019 Roll Left & Right (QC): 6 Sit to Lying (QC): 6 Lying-Sitting on Side/Bed(QC): 6 Sit to Stand (QC): 6 Chair/Wex-pc-Kmbbx Xfer(QC): 6 Toilet Transfer (QC): 6 Does the Patient Walk: Yes Walk 10 feet (QC): 6 Walk 50ft with 2 Turns (QC): 6 Walk 150 ft (QC): 6 1 Step (curb) (QC): 6 PT Plan Treatment/Plan Treatment Plan: Discontinue PT, goals met Treatment Plan: Bed Mobility, Education, Functional Activity [place]ore[place], Functional Strength, Gait, Safety, Therapeutic Exercise, Transfers Treatment Duration: Jun 22, 2019 Frequency: 6 times per week Estimated Hrs Per Day: .25 hour per day Patient and/or Family Agrees t: Yes Safety Risks/Education Patient Education: Gait Training, Transfer Techniques Teaching Recipient: Patient Teaching Methods: Discussion Response to Teaching: Reinforcement Needed Time/GCodes Time In: 1042 Time Out: 1102 Total Billed Treatment Time: 15 Total Billed Treatment 1 visit GT 15 DIONNA SOFIA PT Jun 07, 2019 11:37
[2019-06-07] MEDS: FUROSEMIDE 40 MG/4 ML INJ (LASIX) IVP SCH ×2 (11:41→17:27)
[2019-06-07 12:00] VITALS: BP 156/82
[2019-06-07] MEDS ORDERED: HEParin 1000 UNIT/ML (10ML VIAL) FOR BOLUS IV SCH (12:15)
--- NOTE | 2019-06-07 12:48 | Pulmonary Progress Note ---
Subjective Time Seen by a Provider: 12:47 Subjective/Events-last exam No complications noted. Sepsis Event Evaluation Height, Weight, BMI Height: 5'8.00" Weight: 242lbs. 2.0oz. 109.322662ru; 33.52 BMI Method: Exam Exam Vital Signs Date Time Temp Pulse Resp B/P (MAP) Pulse Ox O2 Delivery O2 Flow Rate FiO2 06/07/19 08:00 36.5 72 18 148/70 (96) 94 Room Air 06/07/19 04:30 36.0 64 20 132/71 (91) 98 Nasal Cannula 2.00 06/07/19 00:00 36.8 81 0 128/62 (84) 95 Room Air 06/06/19 21:00 168/72 (104) 06/06/19 20:30 37.7 81 22 171/75 (107) 96 Room Air 06/06/19 20:00 Nasal Cannula 2.00 06/06/19 16:00 Room Air 06/06/19 16:00 37.0 72 22 150/78 (102) 97 Room Air 06/06/19 15:00 74 20 152/87 (108) 94 Nasal Cannula 2.00 06/06/19 14:00 81 25 144/74 (97) 96 Nasal Cannula 2.00 06/06/19 13:00 87 06/06/19 13:00 77 18 144/85 (104) 96 Nasal Cannula 2.00 I & O 06/07/19 07:00 Intake Total 2910 ml Output Total 1700 ml Balance 1210 ml Height & Weight Height: 5'8.00" Weight: 242lbs. 2.0oz. 109.723411um; 33.52 BMI Method: General Appearance: No Apparent Distress, WD/WN, Obese HEENT: PERRL/EOMI Neck: Full Range of Motion, Normal Inspection, Non Tender Respiratory: Chest Non Tender, No Accessory Muscle Use, No Respiratory Distress Cardiovascular: Regular Rate, Rhythm Capillary Refill: Greater Than 3 Seconds Gastrointestinal: non tender, soft, hernia (loss of domain ventral hernia) Extremity: Swelling (lle), Other (R buttock wound w/ no surrounding erythema, no tissue discolouraiton suggestive of necrosis, mild drainage) Neurologic/Psychiatric: Alert, Oriented x3, Normal Mood/Affect, delivery mgr II-XII Norm as Tested Skin: Normal Color, Warm/Dry Lymphatic: No Adenopathy Results Lab Laboratory Tests 06/06/19 03:30 06/07/19 06:15 Assessment/Plan Assessment/Plan right perirectal soft tissue infection/cellulitis concerning for necrotizing infection with air in soft tissues by ct scan s/p debridement -Zosyn/Clindamycin -Vacomycin dc'd 06/05 -Eraxis was started 06/05 -Pain control -surgery following UTI with Klebsiella Bacteremia secondary to UTI -Repeat UA IDDM -Levemir changed to 5units QHS secondary to hypoglycemia -DM diet Hx of ASMITA -Obtain home machine if available CAD I am going to sign off please call with any questions or concerns. SANDY CHASE DO Jun 07, 2019 12:48
--- NOTE | 2019-06-07 13:56 | NUR ---
Dr. Tam talked about discharge planning with this nurse. He would like for inpatient rehab to evaluate the patient et so this order was placed. I f/u with the marketing database coordinator July for continuity of care. Dr. Tam reports that the patient will need a Veriflo wound vac until Tuesday06/12/19 et then can change to a regular wound vac at that time. Updated wound care nurse of this report. The patient also has multiple IV abx that he is receiving et will need for anticipated 10 more days. Visited with patient et family at bedside of the above information. Also f/u with the primary care nurse Kasandra. The patient requested that I ask about getting more pudding for his meals because he is worried about eating anything too solid. I spoke with dietary et they will call et f/u with the patient.
--- NOTE | 2019-06-07 15:35 | NUR ---
Pastoral Care Visit.
--- NOTE | 2019-06-07 15:37 | NUR ---
IRF Evaluation Order received to evaluate patient for the ARU. Chart review complete and it appears patient is ambulating (600ft, FWW) with independence, as well as independently completing bed mobility; therefore, patient does not require intensive therapies. CM/SS notified. Thank you for this referral.
[2019-06-07 16:00] VITALS: BP 167/78
[2019-06-07] MEDS: TAMSULOSIN 0.4 MG (FLOMAX) CAP PO SCH (17:18)
--- NOTE | 2019-06-07 19:02 | NUR ---
DR. LOVELL NOTIFIED THAT PT. REFUSES LASIX.
[2019-06-07 20:30] VITALS: BP 152/72
[2019-06-07] MEDS: APIXABAN 5 MG (ELIQUIS) TABLET PO SCH (20:45)
[2019-06-07] MEDS: HYDROmorphone (DILAUDID) 4 MG TAB PO PRN (20:45)
[2019-06-08] VITALS: BP 149/71
--- NOTE | 2019-06-08 00:50 | NUR ---
DRESSING CHANGE DONE AT THIS TIME. IRRIGATED WITH STERILE SALINE, PACKED WITH DAKINS, 4X4 GAUZE AND ABD PAD PLACED OVER WOUND SITE
[2019-06-08] MEDS: DAKIN'S 1/4 STRENGTH (0.125%) 473 ML BTL TOP SCH ×3 (00:51→21:37)
[2019-06-08] MEDS: ZOLPIDEM 5 MG (AMBIEN) TAB PO PRN ×2 (00:54→21:39)
[2019-06-08] MEDS: LACTATED RINGERS 1,000 ML IV SCH (03:40)
[2019-06-08] MEDS: HYDROcodone/APAP 5 MG/325 MG (LORTAB) TAB PO PRN (03:45)
[2019-06-08] MEDS: PIPERACILLIN/TAZO 4.5 GM/NS 100 ML IV SCH ×6 (03:45→19:30)
[2019-06-08] MEDS: PATCH REMOVAL TP SCH (03:58)
[2019-06-08 04:00] VITALS: BP 131/66
[2019-06-08] MEDS: CLINDAMYCIN 900 MG/50 ML IVPB 50 ML IV SCH ×3 (06:50→21:37)
[2019-06-08] MEDS: inSUlin ASPART (NovoLOG) 1 UNIT/0.01 ML (CHARGE PER UNIT) SC SCH ×4 (06:50→21:00)
[2019-06-08 07:05] LABS: BASOPHILS % (AUTO) 0 % (0-10); EOSINOPHILS # (AUTO) 0.3 10^3/uL (0.0-0.3); EOSINOPHILS % (AUTO) 3 % (0-10); HEMATOCRIT 34 % (40-54); LYMPHOCYTES # (AUTO) 1.3 X 10^3 (1.0-4.0); LYMPHOCYTES % (AUTO) 14 % (12-44); MEAN CORPUSCULAR HEMOGLOBIN 26 PG (25-34); MEAN CORPUSCULAR HGB CONC 33 G/DL (32-36); MEAN CORPUSCULAR VOLUME 81 FL (80-99); MEAN PLATELET VOLUME 9.1 FL (7.4-10.4); MONOCYTES # (AUTO) 0.5 X 10^3 (0.0-1.0); MONOCYTES % (AUTO) 5 % (0-12); NEUTROPHILS # (AUTO) 7.1 X 10^3 (1.8-7.8); NEUTROPHILS % (AUTO) 77 % (42-75); PLATELET COUNT 334 10^3/uL (130-400); RED CELL DISTRIBUTION WIDTH 14.6 % (10.0-14.5); WHITE BLOOD COUNT 9.3 10^3/uL (4.3-11.0)
[2019-06-08 07:31] LABS: BUN/CREATININE RATIO 10; CALCIUM 8.1 MG/DL (8.5-10.1); CARBON DIOXIDE 25 MMOL/L (21-32); CHLORIDE 104 MMOL/L (98-107); CREATININE SERUM 0.83 MG/DL (0.60-1.30); GFR ESTIMATED > 60; GLUCOSE 210 MG/DL (70-105); MAGNESIUM 1.6 MG/DL (1.6-2.4); PHOSPHORUS 3.2 MG/DL (2.3-4.7); POTASSIUM 4.1 MMOL/L (3.6-5.0); SODIUM 137 MMOL/L (135-145)
[2019-06-08 08:00] VITALS: BP 149/77
--- NOTE | 2019-06-08 08:37 | Progress Note - Surgery ---
[facility] 06/08/19 0837: Subjective Date Seen by a Provider: Jun 08, 2019 Time Seen by a Provider: 07:55 Subjective/Events-last exam Patient complained of abdominal pain and rectal pain. Rectal pain improves at times and worsens at other times. No fevers or chills, Patient appears to be frustrated with events. Patient is having frequent bowel movements. Has denied his Lasix at the time due to BM frequency and doesn't want to "feel as if he is drowning". WBC is stable at 9.3 Review of Systems General: No Chills, No Other (fevers) Cardiovascular: No: Chest Pain, Palpitations Gastrointestinal: Abdominal Pain, Diarrhea; No: Nausea, Vomiting Genitourinary: Other (Denies symptoms) Musculoskeletal: other (Rectum Pain) Objective Exam Vital Signs Date Time Temp Pulse Resp B/P (MAP) Pulse Ox O2 Delivery O2 Flow Rate FiO2 06/08/19 04:00 36.3 68 22 131/66 (87) 93 Room Air 06/08/19 00:00 37.1 68 24 149/71 (97) 94 Room Air 06/07/19 20:45 Room Air 06/07/19 20:30 36.8 69 24 152/72 (98) 97 Room Air 06/07/19 18:58 96 Nasal Cannula 2.00 06/07/19 16:00 37.0 73 28 167/78 (107) 97 Room Air 06/07/19 12:00 36.8 66 18 156/82 (106) 96 Room Air I & O 06/08/19 07:00 Intake Total 2880 ml Balance 2880 ml Capillary Refill : Less Than 3 Seconds General Appearance: No Apparent Distress, WD/WN, Obese Neck: Non Tender Respiratory: Chest Non Tender, Lungs Clear, Normal Breath Sounds, No Accessory Muscle Use, No Respiratory Distress Cardiovascular: Regular Rate, Rhythm, Other (2+ LE edema. Not taking lasix) Peripheral Pulses: 2+ Radial Pulses (R), 2+ Radial Pulses (L) Gastrointestinal: non tender, soft, abnormal bowel sounds (Upper limits of normal), distended Extremity: Calf Tenderness, Pedal Edema, Swelling Neurologic/Psychiatric: Alert, Oriented x3 Skin: Normal Color, Warm/Dry Lymphatic: No Adenopathy Results Lab Laboratory Tests 06/07/19 11:49: Glucometer 266H 06/07/19 17:09: Glucometer 261H 06/07/19 20:25: Glucometer 250H 06/08/19 05:05: Glucometer 203H 06/08/19 06:45: White Blood Count 9.3, Red Blood Count 4.16L, Hemoglobin 11.0L, Hematocrit 34L, Mean Corpuscular Volume 81, Mean Corpuscular Hemoglobin 26, Mean Corpuscular Hemoglobin Concent 33, Red Cell Distribution Width 14.6H, Platelet Count 334, Mean Platelet Volume 9.1, Neutrophils (%) (Auto) 77H, Lymphocytes (%) (Auto) 14, Monocytes (%) (Auto) 5, Eosinophils (%) (Auto) 3, Basophils (%) (Auto) 0, Pratima trophils # (Auto) 7.1, Lymphocytes # (Auto) 1.3, Monocytes # (Auto) 0.5, Eosinophils # (Auto) 0.3, Basophils # (Auto) 0.0, Sodium Level 137, Potassium Level 4.1, Chloride Level 104, Carbon Dioxide Level 25, Anion Gap 8, Blood Urea Nitrogen 8, Creatinine 0.83, Estimat Glomerular Filtration Rate > 60, BUN/Creatinine Ratio 10, Glucose Level 210H, Calcium Level 8.1L, Phosphorus Level 3.2, Magnesium Level 1.6 Microbiology 06/06/19 Urine Culture - Final, Complete Yeast species 06/02/19 MRSA Screen - Final, Complete 06/02/19 Gram Stain - Final, Complete 06/02/19 Anaerobic Culture - Final, Complete Bacteroides ovatus See Comments 06/02/19 Wound Culture - Final, Complete Escherichia coli Strep anginosus Lactobacillus gasseri YEAST 06/01/19 Blood Culture - Final, Complete Klebsiella pneumoniae Assessment/Plan Assessment/Plan Assessment/Plan right perirectal necrotizing soft tissue infection/cellulitis- s/p i and d, debridement, irrigation Diarrhea Abdominal pain LE edema Patient refused lasix but would decrease the LE edema DVT was noted on Ultrasound in left leg SCD Compression to decrease swelling Elevate legs Increase Physical exercise and ambulation Clinical Quality Measures DVT/VTE Risk/Contraindication: Risk Factor Score Per Nursin RFS Level Per Nursing on Admit: 4+=Very High RODERICK POOLE DO 06/08/19 0012: Subjective Time Seen by a Provider: 12:18 Subjective/Events-last exam Pt seen and examined, no changes. States he has no control of urination and indicated he was going as we were talking (this is not new). Assessment/Plan Assessment/Plan Assessment/Plan Continue wound VAC, plan to D/C pt on tuesday. Supervisory-Addendum Brief Verification & Attestation Participated in pt care: history, MDM, physical Personally performed: exam, history, MDM Care discussed with: Medical Student Procedures: n/a Verification and Attestation of Medical Student E/M Service A medical student performed and documented this service in my presence. I reviewed and verified all information documented by the medical student and made modifications to such information, when appropriate. I personally performed the physical exam and medical decision making. Roderick Poole, Jun 08, 2019,17:55 [facility] Jun 08, 2019 08:37 RODERICK POOLE DO Jun 08, 2019 17:55
--- NOTE | 2019-06-08 09:42 | NUR ---
DAKINS DRESSING NOT DONE MATHEW FROM WOUND CARE TO PUT ON WOUND VAC.
[2019-06-08] MEDS: FUROSEMIDE 40 MG/4 ML INJ (LASIX) IVP SCH (09:44)
[2019-06-08] MEDS: DOCUSATE SODIUM 100 MG (COLACE) CAP PO SCH ×2 (09:44→21:35)
--- NOTE | 2019-06-08 09:56 | Cardiology Progress Note ---
Subjective Date Seen by Provider: Jun 08, 2019 Time Seen by Provider: 09:56 Subjective/Events-last exam Patient is laying down in bed, feeling better, has been refusing diuretics due to incontinence, refusing catheter Review of Systems General: No Chills, No Night Sweats; Fatigue; No Malaise, No Appetite, No Other HEENT: No Head Aches, No Visual Changes, No Eye Pain, No Ear Pain, No Dysphasia, No Sinus Congestion, No Post Nasal Drip, No Sore Throat, No Other Pulmonary: Dyspnea; No Cough, No Pleuritic Chest Pain, No Other Cardiovascular: No: Chest Pain, Palpitations, Orthopnea, Paroxysmal Noc. Dyspnea, Edema, Lt Headedness, Other Objective-Cardiology Exam Last Set of Vital Signs Vital Signs 06/07/19 06/08/19 18:58 04:00 Temp 36.3 Pulse 68 Resp 22 B/P (MAP) 131/66 (87) Pulse Ox 93 O2 Delivery Room Air O2 Flow Rate 2.00 Capillary Refill : Less Than 3 Seconds I&O Intake and Output 06/08/19 00:00 Intake Total 3370 ml Balance 3370 ml Intake Oral 3200 ml IV Total 170 ml # Voids 11 # Bowel Movements 4 General: Alert, No Acute Distress HEENT: Atraumatic Neck: Supple Lungs: Clear to Auscultation, Normal Air Movement Heart: Regular Rate, Normal S1, Normal S2, No Murmurs Abdomen: Normal Bowel Sounds Extremities: No Clubbing Skin: No Rashes Neuro: Normal Speech Psych/Mental Status: Mood NL Results Lab Laboratory Tests 06/08/19 06:45 A/P-Cardiology Admission Diagnosis Atrial flutter Coronary artery disease Sepsis Diabetes mellitus Assessment/Plan Paroxysmal atrial flutter, had transient episode, returned to sinus rhythm, no previous history of arrhythmia. Continue to monitor on telemetry. Continue on beta blockers and monitor. Coronary artery disease, history of stent done about 2 years ago, no recent cardiac workup, no active chest pain. No shortness of breath. Continue to monitor. Consider stress test as outpatient. Perirectal abscess with possible early necrotizing fasciitis, treated aggressively, receiving antibiotic and had debridement, managed by Dr. Tam Left thigh pain, ultrasound showed nonocclusive DVT in the left popliteal vein, maintained on Lovenox. Planning to start on OAC tomorrow. Diabetes mellitus, followed and managed by primary care physician Peripheral edema, refusing diuretics due to incontinence, refusing catheter. Clinical Quality Measures DVT/VTE Risk/Contraindication: Risk Factor Score Per Nursin RFS Level Per Nursing on Admit: 4+=Very High ANA MARIA LOVELL MD Jun 08, 2019 09:56
[2019-06-08] MEDS: fluCOnazole (DIFLUCAN) 100 MG TAB PO SCH (10:09)
[2019-06-08] MEDS: lisINopril 5 MG (PRINIVIL) TABLET PO SCH (10:09)
[2019-06-08] MEDS: APIXABAN 5 MG (ELIQUIS) TABLET PO SCH ×2 (10:09→21:35)
[2019-06-08] MEDS: fentaNYL PATCH 25 MCG (DURAGESIC) TD SCH (10:09)
[2019-06-08] MEDS: CARVEDILOL 3.125 MG (COREG) TABLET PO SCH ×2 (10:09→21:00)
[2019-06-08] MEDS: fentaNYL PATCH 100 MCG (DURAGESIC) TD SCH (10:10)
[2019-06-08] MEDS: MUPIROCIN 2% OINT 22 GM (BACTROBAN) TUBE TOP SCH ×2 (10:10→21:36)
[2019-06-08] MEDS ORDERED: NS IV 1000 ML 1,000 ML IV ONE (10:30)
[2019-06-08] MEDS: HYDROmorphone (DILAUDID) 4 MG TAB PO PRN (11:41)
[2019-06-08 12:00] VITALS: BP 163/86
--- NOTE | 2019-06-08 12:56 | Progress Note ---
Subjective Subjective/Events-last exam Afebrile, feeling okay, but having to pee all the time and not wanting to take lasix due to that. Also notes some diarrhea. Objective Exam Last Set of Vital Signs Vital Signs Date Time Temp Pulse Resp B/P (MAP) Pulse Ox O2 Delivery O2 Flow Rate FiO2 06/08/19 11:03 Nasal Cannula 2.00 06/08/19 08:00 36.5 71 18 149/77 (101) 93 Capillary Refill : Less Than 3 Seconds I&O Intake and Output 06/08/19 00:00 Intake Total 3370 ml Balance 3370 ml Intake Oral 3200 ml IV Total 170 ml # Voids 11 # Bowel Movements 4 General: Alert, No Acute Distress Lungs: Clear to Auscultation, Normal Air Movement Heart: Regular Rate, No Murmurs Psych/Mental Status: Mental Status NL Results/Procedures Lab Laboratory Tests 06/07/19 17:09: Glucometer 261H 06/07/19 20:25: Glucometer 250H 06/08/19 05:05: Glucometer 203H 06/08/19 06:45: White Blood Count 9.3, Red Blood Count 4.16L, Hemoglobin 11.0L, Hematocrit 34L, Mean Corpuscular Volume 81, Mean Corpuscular Hemoglobin 26, Mean Corpuscular Hemoglobin Concent 33, Red Cell Distribution Width 14.6H, Platelet Count 334, Mean Platelet Volume 9.1, Neutrophils (%) (Auto) 77H, Lymphocytes (%) (Auto) 14, Monocytes (%) (Auto) 5, Eosinophils (%) (Auto) 3, Basophils (%) (Auto) 0, Neutrophils # (Auto) 7.1, Lymphocytes # (Auto) 1.3, Monocytes # (Auto) 0.5, Eosinophils # (Auto) 0.3, Basophils # (Auto) 0.0, Sodium Level 137, Potassium L evel 4.1, Chloride Level 104, Carbon Dioxide Level 25, Anion Gap 8, Blood Urea Nitrogen 8, Creatinine 0.83, Estimat Glomerular Filtration Rate > 60, BUN/Creatinine Ratio 10, Glucose Level 210H, Calcium Level 8.1L, Phosphorus Level 3.2, Magnesium Level 1.6 06/08/19 11:32: Glucometer 203H Microbiology 06/06/19 Urine Culture - Final, Complete Yeast species 06/02/19 MRSA Screen - Final, Complete 06/02/19 Gram Stain - Final, Complete 06/02/19 Anaerobic Culture - Final, Complete Bacteroides ovatus See Comments 06/02/19 Wound Culture - Final, Complete Escherichia coli Strep anginosus Lactobacillus gasseri YEAST 06/01/19 Blood Culture - Final, Complete Klebsiella pneumoniae Assessment/Plan Assessment/Plan (1) Necrotizing cellulitis Status: Acute Assessment & Plan: Surgery consulted, initial I&D done and plan to go back to OR today. On clindamycin, zosyn and vancomycin. 06/05 s/p debridement yesterday, continue clindamycin and zosyn, no MRSA noted, will d/c vancomycin. 06/06 continue clindamycin and zosyn 06/08 continue clindamycin and zosyn (2) Diabetes mellitus, type 2 Status: Chronic Assessment & Plan: Levemir, sliding scale insulin. Qualifiers: (3) Chronic pain Status: Chronic Assessment & Plan: On fentany and dilaudid at home. Currently on morphine EMAIL SPECIALIST but remains in significant pain, will reeval dosing. 06/05 converted home meds to morphine equivalents, and is currently able to get nearly double home dosing with EMAIL SPECIALIST settings, will not adjust at this time. 06/06 fentanyl patch restarted yesterday per Dr. Tam. Will d/c EMAIL SPECIALIST and resume home dilaudid for breakthrough. 06/07 pain controlled Qualifiers: Qualified Codes: G89.4 - Chronic pain syndrome (4) Acute renal insufficiency Status: Resolved (5) Lymphadenopathy Assessment & Plan: Suspect related to cellulitis, but may need to consider follow up outpatient. (6) Hydroureteronephrosis Status: Acute (7) Urinary tract infection Assessment & Plan: Klebsiella in urine and blood. Abx as noted above. (8) Thrombosis of left popliteal vein Assessment & Plan: Started on heparin drip to procedure, will transition when okay with Surgery 06/07 tolerating enoxaparin, plan to switch to oral tomorrow 06/08 on apixaban (9) DVT prophylaxis Status: Acute Assessment & Plan: Now on treatment due to DVT noted above. Clinical Quality Measures DVT/VTE Risk/Contraindication: Risk Factor Score Per Nursin RFS Level Per Nursing on Admit: 4+=Very High KAYLEE WATT MD Jun 08, 2019 12:56
[2019-06-08 16:00] VITALS: BP 141/78
--- NOTE | 2019-06-08 16:16 | NUR ---
PT FOUND USING VAPE CIGARETTE AT BEDSIDE. PLACED IN LOCKUP AND THEN GAVE TO SISTER TO TAKE HOME. STATES HE DOES NOT HAVE ANY MORE.
[2019-06-08] MEDS: TAMSULOSIN 0.4 MG (FLOMAX) CAP PO SCH (18:26)
[2019-06-08] MEDS: LACTOBACILLUS ACIDOPHILUS (PROBIOTIC) CAPSULE PO SCH (18:26)
[2019-06-08 20:00] VITALS: BP 142/78
[2019-06-09] VITALS: BP 139/75
[2019-06-09] MEDS: HYDROcodone/APAP 5 MG/325 MG (LORTAB) TAB PO PRN ×4 (01:26→14:54)
[2019-06-09] MEDS: PIPERACILLIN/TAZO 4.5 GM/NS 100 ML IV SCH ×6 (03:30→20:00)
[2019-06-09 04:50] VITALS: BP 126/62
[2019-06-09 05:20] LABS: BASOPHILS % (AUTO) 0 % (0-10); EOSINOPHILS # (AUTO) 0.3 10^3/uL (0.0-0.3); EOSINOPHILS % (AUTO) 3 % (0-10); HEMATOCRIT 33 % (40-54); HEMOGLOBIN 10.7 G/DL (13.3-17.7); LYMPHOCYTES # (AUTO) 1.4 X 10^3 (1.0-4.0); LYMPHOCYTES % (AUTO) 13 % (12-44); MEAN CORPUSCULAR HEMOGLOBIN 27 PG (25-34); MEAN CORPUSCULAR HGB CONC 33 G/DL (32-36); MEAN CORPUSCULAR VOLUME 81 FL (80-99); MEAN PLATELET VOLUME 9.1 FL (7.4-10.4); MONOCYTES # (AUTO) 0.5 X 10^3 (0.0-1.0); MONOCYTES % (AUTO) 5 % (0-12); NEUTROPHILS % (AUTO) 79 % (42-75); PLATELET COUNT 364 10^3/uL (130-400); RED CELL DISTRIBUTION WIDTH 14.9 % (10.0-14.5); WHITE BLOOD COUNT 10.1 10^3/uL (4.3-11.0)
[2019-06-09 05:48] LABS: BUN/CREATININE RATIO 8; CALCIUM 8.2 MG/DL (8.5-10.1); CARBON DIOXIDE 24 MMOL/L (21-32); CHLORIDE 104 MMOL/L (98-107); CREATININE SERUM 0.84 MG/DL (0.60-1.30); GFR ESTIMATED > 60; GLUCOSE 180 MG/DL (70-105); MAGNESIUM 1.6 MG/DL (1.6-2.4); PHOSPHORUS 3.5 MG/DL (2.3-4.7); POTASSIUM 3.9 MMOL/L (3.6-5.0); SODIUM 138 MMOL/L (135-145)
[2019-06-09] MEDS: CLINDAMYCIN 900 MG/50 ML IVPB 50 ML IV SCH ×3 (06:02→21:05)
[2019-06-09] MEDS: inSUlin ASPART (NovoLOG) 1 UNIT/0.01 ML (CHARGE PER UNIT) SC SCH ×4 (06:03→21:01)
[2019-06-09] MEDS: LACTOBACILLUS ACIDOPHILUS (PROBIOTIC) CAPSULE PO SCH ×3 (06:03→17:05)
[2019-06-09 08:00] VITALS: BP 128/62
--- NOTE | 2019-06-09 09:18 | Progress Note - Surgery ---
ROBBI VILLAGRAN [facility] 06/09/19 0918: Subjective Date Seen by a Provider: Jun 09, 2019 Time Seen by a Provider: 08:55 Subjective/Events-last exam Patient appears to be doing better. Patient is still having diarrhea but says that he is normally sensitive to laxatives. Patient is still refusing Lasix, but is urinating and edema appear to have decreased. Currently has pain with palpation but states this is normal. Review of Systems General: No Chills, No Other (fevers) Cardiovascular: Edema (decreased); No: Chest Pain Gastrointestinal: Abdominal Pain (chronic); No: Nausea, Vomiting Genitourinary: Frequency Objective Exam Vital Signs Date Time Temp Pulse Resp B/P (MAP) Pulse Ox O2 Delivery O2 Flow Rate FiO2 06/09/19 06:35 36.7 06/09/19 06:03 36.7 06/09/19 04:50 36.7 73 28 126/62 (83) 94 Room Air 06/09/19 01:56 37.1 06/09/19 01:26 37.1 06/09/19 00:00 36.6 64 28 139/75 (96) 94 Room Air 06/08/19 20:00 95 Room Air 06/08/19 20:00 37.1 75 20 142/78 (99) 96 Room Air 06/08/19 16:00 37.2 63 20 141/78 (99) 95 Room Air 06/08/19 12:00 36.6 70 20 163/86 (111) 97 Room Air 06/08/19 11:03 Nasal Cannula 2.00 I & O 06/09/19 07:00 Intake Total 4150 ml Output Total 2275 ml Balance 1875 ml Capillary Refill : Less Than 3 SecondsLess Than 3 Seconds General Appearance: No Apparent Distress, WD/WN, Obese Respiratory: Chest Non Tender, Lungs Clear, Normal Breath Sounds, No Accessory Muscle Use, No Respiratory Distress Cardiovascular: Regular Rate, Rhythm, No Murmur, Normal Peripheral Pulses (2/4 radial pulse bilaterally), Other (1+ edema) Peripheral Pulses: 2+ Radial Pulses (R), 2+ Radial Pulses (L) Gastrointestinal: no organomegaly, abnormal bowel sounds (Upper limits of normal), distended, tenderness Extremity: Pedal Edema, Swelling (bilaterally) Neurologic/Psychiatric: Alert, Oriented x3, Other (Much better mood) Skin: Normal Color, Warm/Dry Lymphatic: No Adenopathy Results Lab Laboratory Tests 06/08/19 11:32: Glucometer 203H 06/08/19 16:52: Glucometer 212H 06/08/19 20:23: Glucometer 198H 06/09/19 05:15: White Blood Count 10.1, Red Blood Count 4.01L, Hemoglobin 10.7L, Hematocrit 33L, Mean Corpuscular Volume 81, Mean Corpuscular Hemoglobin 27, Mean Corpuscular Hemoglobin Concent 33, Red Cell Distribution Width 14.9H, Platelet Count 364, Mean Platelet Volume 9.1, Neutrophils (%) (Auto) 79H, Lymphocytes (%) (Auto) 13, Monocytes (%) (Auto) 5, Eosinophils (%) (Auto) 3, Basophils (%) (Auto) 0, Neutrophils # (Auto) 8.0H, Lymphocytes # (Auto) 1.4, Monocytes # (Auto) 0.5, Eosinophils # (Auto) 0.3, Basophils # (Auto) 0.0, Sodium Level 138, Potassium Level 3.9, Chloride Level 104, Carbon Dioxide Level 24, Anion Gap 10, Blood Urea Nitrogen 7, Creatinine 0.84, Estimat Glomerular Filtration Rate > 60, BUN/Creatinine Ratio 8, Glucose Level 180H, Calcium Level 8.2L, Phosphorus Level 3.5, Magnesium Level 1.6 06/09/19 05:46: Glucometer 228H Microbiology 06/06/19 Urine Culture - Final, Complete Yeast species 06/02/19 MRSA Screen - Final, Complete 06/02/19 Gram Stain - Final, Complete 06/02/19 Anaerobic Culture - Final, Complete Bacteroides ovatus See Comments 06/02/19 Wound Culture - Final, Complete Escherichia coli Strep anginosus Lactobacillus gasseri YEAST 06/01/19 Blood Culture - Final, Complete Klebsiella pneumoniae Assessment/Plan Assessment/Plan Assessment/Plan Continue wound VAC, plan to D/C pt on tuesday. Discontinue laxatives. Continue pain control Encourage lasix Clinical Quality Measures DVT/VTE Risk/Contraindication: Risk Factor Score Per Nursin RFS Level Per Nursing on Admit: 4+=Very High RODERICK POOLE DO 06/09/19 1336: Subjective Time Seen by a Provider: 13:08 Subjective/Events-last exam Pt seen and examined, main complaint is VAC keeps turning off. He thinks he is doing better today. Assessment/Plan Assessment/Plan Assessment/Plan Continue VAD Supervisory-Addendum Brief Verification & Attestation Participated in pt care: history, MDM, physical Personally performed: exam, history, MDM Care discussed with: Medical Student Procedures: n/a Verification and Attestation of Medical Student E/M Service A medical student performed and documented this service in my presence. I reviewed and verified all information documented by the medical student and made modifications to such information, when appropriate. I personally performed the physical exam and medical decision making. Roderick Poole, Jun 09, 2019,13:36 ROBBI VILLAGRAN [facility] Jun 09, 2019 09:18 RODERICK POOLE DO Jun 09, 2019 13:36
[2019-06-09] MEDS: DAKIN'S 1/4 STRENGTH (0.125%) 473 ML BTL TOP SCH ×2 (09:29→21:08)
[2019-06-09] MEDS: CARVEDILOL 3.125 MG (COREG) TABLET PO SCH ×2 (09:29→20:00)
[2019-06-09] MEDS: MUPIROCIN 2% OINT 22 GM (BACTROBAN) TUBE TOP SCH (09:29)
[2019-06-09] MEDS: lisINopril 5 MG (PRINIVIL) TABLET PO SCH (09:29)
[2019-06-09] MEDS: APIXABAN 5 MG (ELIQUIS) TABLET PO SCH ×2 (09:29→20:00)
[2019-06-09] MEDS: fluCOnazole (DIFLUCAN) 100 MG TAB PO SCH (09:29)
[2019-06-09] MEDS: DOCUSATE SODIUM 100 MG (COLACE) CAP PO SCH ×2 (09:35→20:47)
[2019-06-09 12:00] VITALS: BP 137/76
--- NOTE | 2019-06-09 12:55 | Progress Note - Cardiology ---
Cardiology SOAP Progress Note Subjective: Does not report cp or palp or syncope Has chronic, bilat leg swelling Has gen malaise Objective: I&O/Vital Signs 06/09/19 06/09/19 06/09/19 06/09/19 01:26 01:56 04:50 06:03 Temp 37.1 37.1 36.7 36.7 Pulse 73 Resp 28 B/P (MAP) 126/62 (83) Pulse Ox 94 O2 Delivery Room Air 06/09/19 06/09/19 06:35 08:00 Temp 36.7 36.6 Pulse 68 Resp 20 B/P (MAP) 128/62 (84) Pulse Ox 95 O2 Delivery Room Air 06/09/19 00:00 Intake Total 3560 ml Output Total 1150 ml Balance 2410 ml Weight (Pounds): 242 Weight (Ounces): 2.0 Weight (Calculated Kilograms): [id number] Constitutional: AAO x 3, well-developed, well-nourished Respiratory: No accessory muscle use; other (good bilat air entry) Cardiovascular: regular rate-rhythm, S1 and S2, systolic murmur (soft EDWAR at card base) Gastrointestional: No tender; soft; No guarding, No rebound; audible bowel sounds Extremities: No clubbing, No cyanosis; significant edema (mod, bilat, pitting edema of legs) Neurologic/Psychiatric: oriented x 3, other (moves all limbs equally) Skin: No rash on exposed areas, No ulcerations on exposed areas Results/Procedures: Labs Laboratory Tests 06/08/19 16:52: Glucometer 212H 06/08/19 20:23: Glucometer 198H 06/09/19 05:15: White Blood Count 10.1, Red Blood Count 4.01L, Hemoglobin 10.7L, Hematocrit 33L, Mean Corpuscular Volume 81, Mean Corpuscular Hemoglobin 27, Mean Corpuscular Hemoglobin Concent 33, Red Cell Distribution Width 14.9H, Platelet Count 364, Mean Platelet Volume 9.1, Neutrophils (%) (Auto) 79H, Lymphocytes (%) (Auto) 13, Monocytes (%) (Auto) 5, Eosinophils (%) (Auto) 3, Basophils (%) (Auto) 0, Neutrophils # (Auto) 8.0H, Lymphocytes # (Auto) 1.4, Monocytes # (Auto) 0.5, Eosinophils # (Auto) 0.3, Basophils # (Auto) 0.0, Sodium Level 138, Potassium Level 3.9, Chloride Level 104, Carbon Dioxide Level 24, Anion Gap 10, Blood Urea Nitrogen 7, Creatinine 0.84, Estimat Glomerular Filtration Rate > 60, BUN/Creatinine Ratio 8, Glucose Level 180H, Calcium Level 8.2L, Phosphorus Level 3.5, Magnesium Level 1.6 06/09/19 05:46: Glucometer 228H 06/09/19 11:12: Glucometer 189H Microbiology 06/06/19 Urine Culture - Final, Complete Yeast species 06/02/19 MRSA Screen - Final, Complete 06/02/19 Gram Stain - Final, Complete 06/02/19 Anaerobic Culture - Final, Complete Bacteroides ovatus See Comments 06/02/19 Wound Culture - Final, Complete Escherichia coli Strep anginosus Lactobacillus gasseri YEAST 06/01/19 Blood Culture - Final, Complete Klebsiella pneumoniae Laboratory Tests 06/08/19 06:45 06/09/19 05:15 A/P: Assessment: Right perirectal abscess debrided by Dr Tam on 06/04/19 Paroxysmal atrial flutter, currently NSR Stroke prophylaxis with apixaban Coronary artery disease, history of cor stent about 2 years ago, details unknown, clinically stable Partially occlusive DVT in the left popliteal vein, on Doppler of 06/04/19, treated with apixaban Diabetes mellitus II, insulin-requiring, followed and managed by primary care physician Peripheral edema, refuses diuretics due to incontinence Plan: * I interviewed and examined the patient and reviewed his records * Continue bb for vent rate control during atrial flutter episodes * Continue apixaban for stroke prophylaxis and DVT prevention * Monitor labs LIANA LANDIS MD FACP [facility] Jun 09, 2019 12:55
--- NOTE | 2019-06-09 13:07 | Progress Note - Hospitalist ---
Subjective HPI/CC On Admission Date Seen by Provider: Jun 09, 2019 Time Seen by Provider: 11:30 ER by private vehicle with a few days of urinary frequency, suprapubic abdominal pain. General malaise, hyperglycemia area sugar was as high as 500 earlier today. He has a history of diverticulitis with "fistulas" (unclear where). He's been on 2 different rounds of antibiotics since 05/10/19 without any improvement in his symptoms. Patient sleeping this morning upon arousal less pain noted. He has a fentanyl patch on nurses only had to give 1 dose of narcotic through the night. No chest pain or shortness of breath reported. Subjective/Events-last exam Negative attitude today Patient wants to talk about pain meds Patient requires Dilaudid and other narcs at home at bedside Conferred wtih watch engine operator of Systems Gastrointestinal: Abdominal Pain Objective Exam Vital Signs Vital Signs Date Time Temp Pulse Resp B/P (MAP) Pulse Ox O2 Delivery O2 Flow Rate FiO2 06/09/19 13:44 91 Room Air 06/09/19 13:44 36.6 69 06/09/19 12:00 18 137/76 (96) 06/08/19 11:03 2.00 Capillary Refill : Less Than 3 SecondsLess Than 3 Seconds General Appearance: No Apparent Distress, WD/WN, Chronically ill, Obese Respiratory: Lungs Clear, Normal Breath Sounds Cardiovascular: Regular Rate, Rhythm Neurologic/Psychiatric: Alert, Oriented x3, No Motor/Sensory Deficits, Normal Mood/Affect Results/Procedures Lab Laboratory Tests 06/09/19 05:15 Patient resulted labs reviewed. Assessment/Plan Assessment and Plan Assess & Plan/Chief Complaint Assessment: (1) Necrotizing cellulitis (2) Diabetes mellitus, type 2 (3) Chronic pain (4) Acute renal insufficiency (5) Lymphadenopathy (6) Hydroureteronephrosis (7) Urinary tract infection (8) Thrombosis of left popliteal vein (9) DVT prophylaxis Plan: Abx OAC Pain issues are chronic Critical Care Critically Ill Patient Diagnosis/Problems Diagnosis/Problems (1) Necrotizing cellulitis Status: Acute (2) Urinary tract infection (3) Hydroureteronephrosis Status: Acute (4) Acute renal insufficiency Status: Resolved Resolution Date/Time: 06/04/19 @ 13:42 (5) Lymphadenopathy (6) Diabetes mellitus, type 2 Status: Chronic Qualifiers: Diabetes mellitus mcc insulin use: with long term care social worker use (7) Chronic pain Status: Chronic Qualifiers: Chronic pain type: chronic pain syndrome Qualified Codes: G89.4 - Chronic pain syndrome (8) Thrombosis of left popliteal vein Clinical Quality Measures DVT/VTE Risk/Contraindication: Risk Factor Score Per Nursin RFS Level Per Nursing on Admit: 4+=Very High MARY SAMANO DO Jun 09, 2019 13:07
[2019-06-09 13:44] VITALS: BP 128/62
[2019-06-09 16:00] VITALS: BP 148/82
[2019-06-09] MEDS: TAMSULOSIN 0.4 MG (FLOMAX) CAP PO SCH (17:05)
--- NOTE | 2019-06-09 18:46 | NUR ---
DRAPE DRESSING TO BUTTOCKS AREA CHANGED BY KAT LAY.
[2019-06-09] MEDS: ZOLPIDEM 5 MG (AMBIEN) TAB PO PRN (23:52)
[2019-06-10] VITALS: BP 148/86
--- NOTE | 2019-06-10 00:16 | NUR ---
PTS DAUGHTER ALERTED STAFF THAT HER DAD'S ABDOMEN WAS BLEEDING. THIS RN SAW THAT HE HAS A MIDLINE SCAR THAT APPEARED TO BE OLD AND IT HAD OPENED A FEW CENTIMETERS AND THERE WAS SEROSANGOUIS FLUID ON FLOOR. PT WAS SITTING ON SIDE OF BED WHEN THIS HAPPENED. DR SAMANO NOTIFIED AND SHE ORDERED DR CARRINGTON BE NOTIFIED. THIS RN CALLED DR CARRINGTON AND HE SAID TO COVER AREA AND MONITOR, HE WOULD SEE IT IN THE MORNING. THIS RN COVERED AREA WITH A AB PAD AND PAPER TAPE.
[2019-06-10] MEDS: HYDROcodone/APAP 5 MG/325 MG (LORTAB) TAB PO PRN ×4 (00:36→20:00)
[2019-06-10] MEDS: HYDROmorphone (DILAUDID) 4 MG TAB PO PRN ×2 (01:35→12:07)
[2019-06-10] MEDS: PIPERACILLIN/TAZO 4.5 GM/NS 100 ML IV SCH ×6 (04:50→19:53)
[2019-06-10] MEDS: LACTOBACILLUS ACIDOPHILUS (PROBIOTIC) CAPSULE PO SCH ×3 (04:58→18:08)
[2019-06-10] MEDS: CLINDAMYCIN 900 MG/50 ML IVPB 50 ML IV SCH ×3 (04:59→21:02)
[2019-06-10] MEDS: inSUlin ASPART (NovoLOG) 1 UNIT/0.01 ML (CHARGE PER UNIT) SC SCH ×4 (05:13→20:58)
[2019-06-10 05:23] LABS: BASOPHILS % (AUTO) 0 % (0-10); EOSINOPHILS # (AUTO) 0.3 10^3/uL (0.0-0.3); EOSINOPHILS % (AUTO) 3 % (0-10); HEMATOCRIT 34 % (40-54); HEMOGLOBIN 10.7 G/DL (13.3-17.7); LYMPHOCYTES # (AUTO) 1.3 X 10^3 (1.0-4.0); LYMPHOCYTES % (AUTO) 13 % (12-44); MEAN CORPUSCULAR HEMOGLOBIN 26 PG (25-34); MEAN CORPUSCULAR HGB CONC 32 G/DL (32-36); MEAN CORPUSCULAR VOLUME 82 FL (80-99); MEAN PLATELET VOLUME 9.2 FL (7.4-10.4); MONOCYTES # (AUTO) 0.4 X 10^3 (0.0-1.0); MONOCYTES % (AUTO) 4 % (0-12); NEUTROPHILS # (AUTO) 8.2 X 10^3 (1.8-7.8); NEUTROPHILS % (AUTO) 80 % (42-75); PLATELET COUNT 431 10^3/uL (130-400); WHITE BLOOD COUNT 10.3 10^3/uL (4.3-11.0)
[2019-06-10 05:40] LABS: BUN/CREATININE RATIO 8; CALCIUM 8.6 MG/DL (8.5-10.1); CARBON DIOXIDE 23 MMOL/L (21-32); CHLORIDE 103 MMOL/L (98-107); CREATININE SERUM 1.01 MG/DL (0.60-1.30); GFR ESTIMATED > 60; GLUCOSE 306 MG/DL (70-105); MAGNESIUM 1.8 MG/DL (1.6-2.4); PHOSPHORUS 3.3 MG/DL (2.3-4.7); POTASSIUM 4.5 MMOL/L (3.6-5.0); SODIUM 135 MMOL/L (135-145)
[2019-06-10] MEDS: fluCOnazole (DIFLUCAN) 100 MG TAB PO SCH (07:15)
[2019-06-10] MEDS: CARVEDILOL 3.125 MG (COREG) TABLET PO SCH ×2 (07:15→19:53)
[2019-06-10] MEDS: lisINopril 5 MG (PRINIVIL) TABLET PO SCH (07:15)
[2019-06-10] MEDS: APIXABAN 5 MG (ELIQUIS) TABLET PO SCH ×2 (07:15→19:53)
[2019-06-10] MEDS: DOCUSATE SODIUM 100 MG (COLACE) CAP PO SCH ×2 (07:17→19:53)
[2019-06-10] MEDS: DAKIN'S 1/4 STRENGTH (0.125%) 473 ML BTL TOP SCH ×2 (07:17→21:05)
[2019-06-10 08:05] VITALS: BP 161/78
--- NOTE | 2019-06-10 12:00 | NUR ---
DR. CARRINGTON HERE. DRESSING REMOVED FROM ABD. MOD. AMT. BROWN/YELLOWISH DRAINAGE NOTED. OSTOMY BAG TO AREA. APPROX. 1 CM OPENED AREA TO LOWER ABD. OLD INC. AREA. ABD. DISTENDED AND SL. FIRM. C/O OF PAIN TO ABD. WHEN TOUCHING IT. NPO FOR CT SCAN. FAMILY MEMBERS AT BEDSIDE.
[2019-06-10] MEDS: DIAZEPAM 2 MG (VALIUM) TAB PO PRN ×2 (12:20→20:00)
--- NOTE | 2019-06-10 12:49 | Progress Note - Surgery ---
Subjective Time Seen by a Provider: 12:06 Subjective/Events-last exam Pt seen and examined, is having some abodminal pain. I was called last night (by nurse) and informed of "midline scar breaking open, with serosanguinous fluid leaking out". Pt states this has never happened before. Pt has moderate abdominal pain, but not necessarily new. Still complains of buttock pain. Daughter states that he was on hospice but was taken off and in the past he has "pooped out of his penis". Pt has hx of prostate CA with seed implantation. Daughter states that 10 yrs ago they attempted umbilical hernia repair and then "messed that up and when they went in to try and fix it, spent 5 hours and then came out and said he had cement belly". Review of Systems General: Fatigue, Malaise Pulmonary: No Dyspnea, No Cough Cardiovascular: No: Chest Pain, Palpitations Gastrointestinal: Abdominal Pain; No: Nausea, Vomiting Genitourinary: Dysuria, Frequency; No Hematuria Objective Exam Vital Signs Date Time Temp Pulse Resp B/P (MAP) Pulse Ox O2 Delivery O2 Flow Rate FiO2 06/10/19 08:05 37.0 73 20 161/78 (105) 97 Room Air 06/10/19 00:00 37.6 67 20 148/86 (106) 99 Room Air 06/09/19 20:00 Room Air 06/09/19 16:00 36.6 60 20 148/82 (104) 96 Room Air 06/09/19 13:44 91 Room Air 06/09/19 13:44 36.6 69 91 I & O 06/10/19 07:00 Intake Total 2930 ml Output Total 3925 ml Balance -995 ml Capillary Refill : Less Than 3 SecondsLess Than 3 Seconds General Appearance: Chronically ill, Mild Distress, Obese HEENT: PERRL/EOMI, Moist Mucous Membranes Respiratory: Lungs Clear, Normal Breath Sounds Cardiovascular: Regular Rate, Rhythm, No Murmur Peripheral Pulses: 2+ Radial Pulses (R), 2+ Radial Pulses (L) Gastrointestinal: soft (skin does not have any signs of erythema), abnormal bowel sounds (Upper limits of normal), distended, tenderness, hernia (huge midline hernia), other (Pt has a fistula in midline scar; most likely an enterocutaneious fistula with fecal output. ) Extremity: Pedal Edema, Swelling (bilaterally) Neurologic/Psychiatric: Alert, Oriented x3 Skin: Normal Color, Warm/Dry Results Lab Laboratory Tests 06/09/19 16:14: Glucometer 221H 06/09/19 20:27: Glucometer 245H 06/10/19 04:58: Glucometer 263H 06/10/19 05:10: White Blood Count 10.3, Red Blood Count 4.10L, Hemoglobin 10.7L, Hematocrit 34L, Mean Corpuscular Volume 82, Mean Corpuscular Hemoglobin 26, Mean Corpuscular Hemoglobin Concent 32, Red Cell Distribution Width 15.0H, Platelet Count 431H, Mean Platelet Volume 9.2, Neutrophils (%) (Auto) 80H, Lymphocytes (%) (Auto) 13, Monocytes (%) (Auto) 4, Eosinophils (%) (Auto) 3, Basophils (%) (Auto) 0, Neutrophils # (Auto) 8.2H, Lymphocytes # (Auto) 1.3, Monocytes # (Auto) 0.4, Eosinophils # (Auto) 0.3, Basophils # (Auto) 0.0, Sodium Level 135, Potassium Level 4.5, Chloride Level 103, Carbon Dioxide Level 23, Anion Gap 9, Blood Urea Nitrogen 8, Creatinine 1.01, Estimat Glomerular Filtration Rate > 60, BUN/Creatinine Ratio 8, Glucose Level 306H, Calcium Level 8.6, Phosphorus Level 3.3, Magnesium Level 1.8 06/10/19 11:49: Glucometer 256H Microbiology 06/06/19 Urine Culture - Final, Complete Yeast species 06/02/19 MRSA Screen - Final, Complete 06/02/19 Gram Stain - Final, Complete 06/02/19 Anaerobic Culture - Final, Complete Bacteroides ovatus See Comments 06/02/19 Wound Culture - Final, Complete Escherichia coli Strep anginosus Lactobacillus gasseri YEAST 06/01/19 Blood Culture - Final, Complete Klebsiella pneumoniae Assessment/Plan Assessment/Plan Assessment/Plan Enterocutaneous Fistula Pneumouria Ventral/incisional hernia - incarcerated I directed nurse to clean abdomen and place a colostomy device, I ordered a CT Abd/Pelvis with IV contrast and will make pt NPO. I looked at old CT and pt had air in the bladder at that time, did not see any free fluid or free air in abdomen. One option is to make pt long-term NPO and start and TPN to try and control the fistula that way. The second option is surgical resection, but pt is very poor surgical candidate and this would probably required a large resection of small bowel. In addition he has basically complete loss of his abdominal compartment and getting him closed would be very difficult; a tertiary center with plastics coordinating with surgical team might be better. We will wait to see what today's CT shows. Clinical Quality Measures DVT/VTE Risk/Contraindication: Risk Factor Score Per Nursin RFS Level Per Nursing on Admit: 4+=Very High GÓMZE CARRINGTON DO Jun 10, 2019 12:49
[2019-06-10] MEDS ORDERED: IOHEXOL 350 MG/ML 100 ML (OMNIPAQUE 350) VIAL IV ONE (13:00)
[2019-06-10] MEDS ORDERED: NS 100 ML (IVPB) BAG IV ONE (13:00)
--- NOTE | 2019-06-10 13:20 | Progress Note - Hospitalist ---
Subjective HPI/CC On Admission Date Seen by Provider: Jun 10, 2019 Time Seen by Provider: 11:00 ER by private vehicle with a few days of urinary frequency, suprapubic abdominal pain. General malaise, hyperglycemia area sugar was as high as 500 earlier today. He has a history of diverticulitis with "fistulas" (unclear where). He's been on 2 different rounds of antibiotics since 05/10/19 without any improvement in his symptoms. Patient sleeping this morning upon arousal less pain noted. He has a fentanyl patch on nurses only had to give 1 dose of narcotic through the night. No chest pain or shortness of breath reported. Subjective/Events-last exam Patient about the same Drainage from an old hernia site reported last night Dr Poole has assessed the drainage to be bowel contents confirming suspected enterocutaneous fistula No pain other than his usual chronic type Wound vac in place Review of Systems General: Fatigue Gastrointestinal: Abdominal Pain Objective Exam Vital Signs Vital Signs Date Time Temp Pulse Resp B/P (MAP) Pulse Ox O2 Delivery O2 Flow Rate FiO2 06/10/19 16:36 36.8 61 18 168/82 (110) 96 Room Air 06/08/19 11:03 2.00 Capillary Refill : Less Than 3 SecondsLess Than 3 Seconds General Appearance: No Apparent Distress, WD/WN, Chronically ill Respiratory: Chest Non Tender, Lungs Clear, Normal Breath Sounds, No Accessory Muscle Use, No Respiratory Distress Cardiovascular: Regular Rate, Rhythm, No Edema, No Gallop, No JVD, No Murmur, Normal Peripheral Pulses Neurologic/Psychiatric: Alert, Oriented x3, No Motor/Sensory Deficits, Normal Mood/Affect Results/Procedures Lab Laboratory Tests 06/10/19 05:10 Patient resulted labs reviewed. 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4 - Chronic pain syndrome (8) Thrombosis of left popliteal vein (9) Enterocutaneous fistula Clinical Quality Measures DVT/VTE Risk/Contraindication: Risk Factor Score Per Nursin RFS Level Per Nursing on Admit: 4+=Very High MARY SAMANO DO Jun 10, 2019 13:20
[2019-06-10] MEDS: HOLD METFORMIN - RECEIVED CONTRAST 20 ML VIAL IV SCH ×2 (13:36→15:59)
--- NOTE | 2019-06-10 14:05 | Diagnostic Imaging Report ---
PROCEDURE: CT abdomen and pelvis with contrast. TECHNIQUE: Multiple contiguous axial images were obtained through the abdomen and pelvis after administration of intravenous contrast. Auto Exposure Controls were utilized during the CT exam to meet ALARA standards for radiation dose reduction. INDICATION: Buttock wound. FINDINGS: The CT abdomen/pelvis exam of 06/01/2019 noted distortion of the perirectal fat on the right with gas interspersed among the edematous/infected tissues. In the interval since the prior study, a roughly 3 cm cleft has developed from the skin surface towards the rectum. There does seem to be somewhat less edema/inflammation than noted on the prior exam. There is still no evidence for a mass or abscess in this region. The previous exam also noted bilateral hydronephrosis of both kidneys. That finding is again evident. Both kidneys do show excretion of the contrast however. There is no evidence for an obstructive calculus or mass involving either ureter. The urinary bladder remains partially distended by urine and gas. There is a poorly defined 3.2 x 2.1 cm area of mixed density involving the cortex of the superior pole of the right kidney. This finding was not clearly evident on the prior exam and consequently could represent a new inflammatory/infectious focus. It would be less likely that this is neoplastic in nature. The liver, spleen, pancreas, adrenals, gallbladder, aorta and inferior vena cava show no sign of an acute abnormality. The retroperitoneal adenopathy noted previously is again evident and unchanged. As on the prior exam, there is diverticulosis of the sigmoid and descending colon without evidence for acute diverticulitis. The large hernia seen previously is again visualized and no different. The stomach is not well-distended and consequently difficult to assess. In the interval since the prior study, mild left lower lobe pneumonia/atelectasis and small left pleural effusion have developed. There is also now greater edema/inflammation of the subcutaneous fat along the left flank. There is no mass or abscess identified in this area however. The bone windows show no sign of a fracture or for destructive lesion. IMPRESSION: 1. In the interval since the prior exam, the area of edema/inflammation in the perirectal fat on the right seen previously has diminished. There is now a cleft extending from the skin surface to the perirectal region. There is no mass or abscess identified in this area. 2. There is persistent hydronephrosis of both kidneys although both kidneys do excrete the contrast. The New poorly defined area of mixed density along the superior pole of the right kidney may represent a developing renal abscess. Clinical follow-up is recommended. 3. There is no acute abnormality of the abdomen or pelvis noted otherwise. 4. Left lower lobe atelectasis/infiltrate and a small left pleural effusion have developed. There is also greater edema/inflammation in the subcutaneous fat along the left flank. Dictated by: Dictated on workstation # [id number]
[2019-06-10] MEDS ORDERED: 1/2 NS IV SOLUTION 1,000 ML IV ONE (14:49)
--- NOTE | 2019-06-10 15:06 | Progress Note - Cardiology ---
Cardiology SOAP Progress Note Subjective: Generalized malaise and weaknes No cp or palp or syncope Poor stamina No shortness of breath at rest Objective: I&O/Vital Signs 06/10/19 08:05 Temp 37.0 Pulse 73 Resp 20 B/P (MAP) 161/78 (105) Pulse Ox 97 O2 Delivery Room Air 06/10/19 00:00 Intake Total 2580 ml Output Total 2450 ml Balance 130 ml Weight (Pounds): 242 Weight (Ounces): 2.0 Weight (Calculated Kilograms): 109.766951 Constitutional: AAO x 3, well-developed, well-nourished Respiratory: No accessory muscle use; other (good bilat air entry) Cardiovascular: regular rate-rhythm, S1 and S2, systolic murmur (soft EDWAR at card base) Gastrointestional: No tender; soft; No guarding, No rebound; audible bowel sounds Extremities: No clubbing, No cyanosis; significant edema (mod, bilat, pitting edema of legs) Neurologic/Psychiatric: oriented x 3, other (moves all limbs equally) Skin: No rash on exposed areas, No ulcerations on exposed areas Results/Procedures: Labs Laboratory Tests 06/09/19 16:14: Glucometer 221H 06/09/19 20:27: Glucometer 245H 06/10/19 04:58: Glucometer 263H 06/10/19 05:10: White Blood Count 10.3, Red Blood Count 4.10L, Hemoglobin 10.7L, Hematocrit 34L, Mean Corpuscular Volume 82, Mean Corpuscular Hemoglobin 26, Mean Corpuscular Hemoglobin Concent 32, Red Cell Distribution Width 15.0H, Platelet Count 431H, Mean Platelet Volume 9.2, Neutrophils (%) (Auto) 80H, Lymphocytes (%) (Auto) 13, Monocytes (%) (Auto) 4, Eosinophils (%) (Auto) 3, Basophils (%) (Auto) 0, Neutrophils # (Auto) 8.2H, Lymphocytes # (Auto) 1.3, Monocytes # (Auto) 0.4, Eosinophils # (Auto) 0.3, Basophils # (Auto) 0.0, Sodium Level 135, Potassium Level 4.5, Chloride Level 103, Carbon Dioxide Level 23, Anion Gap 9, Blood Urea Nitrogen 8, Creatinine 1.01, Estimat Glomerular Filtration Rate > 60, BUN/Creatinine Ratio 8, Glucose Level 306H, Calcium Level 8.6, Phosphorus Level 3.3, Magnesium Level 1.8 06/10/19 11:49: Glucometer 256H Microbiology 06/06/19 Urine Culture - Final, Complete Yeast species 06/02/19 MRSA Screen - Final, Complete 06/02/19 Gram Stain - Final, Complete 06/02/19 Anaerobic Culture - Final, Complete Bacteroides ovatus See Comments 06/02/19 Wound Culture - Final, Complete Escherichia coli Strep anginosus Lactobacillus gasseri YEAST 06/01/19 Blood Culture - Final, Complete Klebsiella pneumoniae Laboratory Tests 06/09/19 05:15 06/10/19 05:10 A/P: Assessment: Enterocutaneous fistula and incarcerated incisional hernia, managed by the Surgical Service Paroxysmal atrial flutter, currently NSR. Stroke prophylaxis with apixaban Coronary artery disease, history of cor stent by Dr Abdul at [facility] in 2016, details unknown, clinically stable Partially occlusive DVT in the left popliteal vein, on Doppler of 06/04/19, treated with apixaban Diabetes mellitus II, insulin-requiring, followed and managed by primary care physician Peripheral edema, refuses diuretics due to incontinence Plan: * Complex management due to multiple comorbidities and multisystem involvement * Add low-dose ASA because of h/o CAD and cor stent * Continue apixaban for stroke prophylaxis and DVT prevention * Monitor labs * I had a detailed discussion with him and is family and answered CV-related questions LIANA LANDIS MD FACP FAC CCDS Jun 10, 2019 15:06
[2019-06-10 16:36] VITALS: BP 168/82
[2019-06-10] MEDS: TAMSULOSIN 0.4 MG (FLOMAX) CAP PO SCH (18:06)
[2019-06-11] VITALS: BP 149/79
[2019-06-11] MEDS: HYDROmorphone (DILAUDID) 4 MG TAB PO PRN ×2 (00:25→11:09)
[2019-06-11] MEDS: ZOLPIDEM 5 MG (AMBIEN) TAB PO PRN (00:25)
--- NOTE | 2019-06-11 00:40 | NUR ---
WOUND VAC CANISTER WAS CHANGED AT THIS TIME. THE CANISTER WAS ALMOST FULL OF FLUID FROM WOUND. NEW CANISTER PUT IN PLACE AND WOUND VAC RUNNING WELL.
[2019-06-11] MEDS: PIPERACILLIN/TAZO 4.5 GM/NS 100 ML IV SCH ×4 (04:58→11:23)
[2019-06-11] MEDS: CLINDAMYCIN 900 MG/50 ML IVPB 50 ML IV SCH (04:59)
[2019-06-11] MEDS: LACTOBACILLUS ACIDOPHILUS (PROBIOTIC) CAPSULE PO SCH ×3 (04:59→15:31)
[2019-06-11 05:17] LABS: BASOPHILS % (AUTO) 0 % (0-10); EOSINOPHILS # (AUTO) 0.2 10^3/uL (0.0-0.3); EOSINOPHILS % (AUTO) 3 % (0-10); HEMATOCRIT 33 % (40-54); HEMOGLOBIN 10.7 G/DL (13.3-17.7); LYMPHOCYTES % (AUTO) 10 % (12-44); MEAN CORPUSCULAR HEMOGLOBIN 27 PG (25-34); MEAN CORPUSCULAR HGB CONC 32 G/DL (32-36); MEAN CORPUSCULAR VOLUME 82 FL (80-99); MEAN PLATELET VOLUME 8.9 FL (7.4-10.4); MONOCYTES # (AUTO) 0.5 X 10^3 (0.0-1.0); MONOCYTES % (AUTO) 6 % (0-12); NEUTROPHILS # (AUTO) 7.7 X 10^3 (1.8-7.8); NEUTROPHILS % (AUTO) 82 % (42-75); PLATELET COUNT 422 10^3/uL (130-400); RED CELL DISTRIBUTION WIDTH 15.4 % (10.0-14.5); WHITE BLOOD COUNT 9.4 10^3/uL (4.3-11.0)
[2019-06-11 05:36] LABS: BUN/CREATININE RATIO 7; CARBON DIOXIDE 24 MMOL/L (21-32); CHLORIDE 103 MMOL/L (98-107); CREATININE SERUM 1.01 MG/DL (0.60-1.30); GFR ESTIMATED > 60; GLUCOSE 247 MG/DL (70-105); MAGNESIUM 1.7 MG/DL (1.6-2.4); PHOSPHORUS 3.9 MG/DL (2.3-4.7); POTASSIUM 4.2 MMOL/L (3.6-5.0); SODIUM 136 MMOL/L (135-145)
--- NOTE | 2019-06-11 07:43 | Progress Note - Surgery ---
HE[facility] DAVIS [facility] 06/11/19 0743: Subjective Date Seen by a Provider: Jun 11, 2019 Time Seen by a Provider: 07:38 Subjective/Events-last exam pt lying in bed. States "im always hurting" but does not Identify a specific region where it hurts. Has been urinating normally. Reports stool per rectum and the colostomy bag. Denies any other c/o at this time. Review of Systems General: No Chills, No Fatigue Pulmonary: No Dyspnea, No Cough Cardiovascular: No: Chest Pain, Palpitations Gastrointestinal: No: Nausea, Vomiting, Abdominal Pain, Diarrhea, Constipation Objective Exam Vital Signs Date Time Temp Pulse Resp B/P (MAP) Pulse Ox O2 Delivery O2 Flow Rate FiO2 06/11/19 00:00 36.6 66 18 149/79 (102) 96 Room Air 06/10/19 20:00 Room Air 06/10/19 16:36 36.8 61 18 168/82 (110) 96 Room Air 06/10/19 08:05 37.0 73 20 161/78 (105) 97 Room Air 06/10/19 08:00 Room Air I & O 06/11/19 07:00 Intake Total 1840 ml Output Total 2000 ml Balance -160 ml Capillary Refill : Less Than 3 SecondsGreater Than 3 Seconds General Appearance: No Apparent Distress, WD/WN, Chronically ill HEENT: PERRL/EOMI, Moist Mucous Membranes Respiratory: Chest Non Tender, Lungs Clear, Normal Breath Sounds, No Accessory Muscle Use, No Respiratory Distress Cardiovascular: Regular Rate, Rhythm, No Edema, No Gallop, No JVD, No Murmur, Normal Peripheral Pulses Peripheral Pulses: 2+ Radial Pulses (R), 2+ Radial Pulses (L) Gastrointestinal: soft (skin does not have any signs of erythema), distended, hernia (huge midline hernia), other (Pt has a fistula in midline scar; most likely an enterocutaneious fistula with fecal output. colostomy bag in place, draining stool) Extremity: Pedal Edema, Swelling (bilaterally) Neurologic/Psychiatric: Alert, Oriented x3, No Motor/Sensory Deficits, Normal Mood/Affect Skin: Normal Color, Warm/Dry, Other (R buttock wound, wound vac in place, no sign of infection) Results Lab Laboratory Tests 06/10/19 11:49: Glucometer 256H 06/10/19 15:50: Glucometer 139H 06/10/19 20:07: Glucometer 255H 06/11/19 05:00: White Blood Count 9.4, Red Blood Count 4.03L, Hemoglobin 10.7L, Hematocrit 33L, Mean Corpuscular Volume 82, Mean Corpuscular Hemoglobin 27, Mean Corpuscular Hemoglobin Concent 32, Red Cell Distribution Width 15.4H, Platelet Count 422H, Mean Platelet Volume 8.9, Neutrophils (%) (Auto) 82H, Lymphocytes (%) (Auto) 10L , Monocytes (%) (Auto) 6, Eosinophils (%) (Auto) 3, Basophils (%) (Auto) 0, Neutrophils # (Auto) 7.7, Lymphocytes # (Auto) 1.0, Monocytes # (Auto) 0.5, Eosinophils # (Auto) 0.2, Basophils # (Auto) 0.0, Sodium Level 136, Potassium Level 4.2, Chloride Level 103, Carbon Dioxide Level 24, Anion Gap 9, Blood Urea Nitrogen 7, Creatinine 1.01, Estimat Glomerular Filtration Rate > 60, BUN/Creatinine Ratio 7, Glucose Level 247H, Calcium Level 9.0, Phosphorus Level 3.9, Magnesium Level 1.7 Microbiology 06/06/19 Urine Culture - Final, Complete Yeast species 06/02/19 MRSA Screen - Final, Complete 06/02/19 Gram Stain - Final, Complete 06/02/19 Anaerobic Culture - Final, Complete Bacteroides ovatus See Comments 06/02/19 Wound Culture - Final, Complete Escherichia coli Strep anginosus Lactobacillus gasseri YEAST 06/01/19 Blood Culture - Final, Complete Klebsiella pneumoniae Assessment/Plan Assessment/Plan Assessment/Plan Enterocutaneous Fistula-CT showed a cleft extending from skin to perirectal region, NPO, Colostomy in place Ventral/incisional hernia - incarcerated Wound VAC to R buttock wound calciner feeder NPO, TPN vs surgical resection Complicated case-pt's insurance does not pay for swing bed or [facility], he is too functional for in-patient rehab. an option would be d/c home w/ home health for wound care, daughter used to be a nurse and states she can help with wound care continue Abx continue to monitor labs Clinical Quality Measures DVT/VTE Risk/Contraindication: Risk Factor Score Per Nursin RFS Level Per Nursing on Admit: 4+=Very High MONTY TAM DO 06/11/191840: Subjective Subjective/Events-last exam Patient states pain fairly controlled. He hurts all over. Has drainage from enterocutaneous fistula. Ostomy appliance has been applied. Patient not sure what he is wanting to do for management. He is not wanting to be NPO long-term. He does not feel that he would do well with surgery. Patient states he would like to talk to hospice care. Has wound vac to right buttock. Sister at bedside. Objective Exam General Appearance: No Apparent Distress, WD/WN HEENT: PERRL/EOMI, Moist Mucous Membranes Respiratory: Chest Non Tender, No Accessory Muscle Use, No Respiratory Distress Cardiovascular: Regular Rate, Rhythm Gastrointestinal: soft (skin does not have any signs of erythema); No distended; hernia (huge midline hernia), other (Pt has a fistula in midline scar; most likely an enterocutaneious fistula with fecal output. colostomy bag in place, draining stool) Extremity: Pedal Edema, Swelling (bilaterally) Neurologic/Psychiatric: Alert, Oriented x3, No Motor/Sensory Deficits, Normal Mood/Affect Skin: Normal Color, Warm/Dry Lymphatic: No Adenopathy Assessment/Plan Assessment/Plan Assessment/Plan Patient now with enteorcutaneous fistula ventral incisional hernia s/p incision and drainage and debridment right buttock, necrotizing soft issue infection left dvt dm patient with enterocutaneous fistula, we discussed conservative and operative managent for this which he is not sure what he is wanting to do. He does not want NPO long-term He has requested to discuss with hospice for information, will arrange. Patient is a poor surgical candiate and would be likely difficult to close abdomen if surgical intervention needed, if would like to proceed with surgical intervention would best be done with multispecialty approach, but patient not sure if wants to do this. Discussed may do nothing and keep drainage contained with ostomy appliance, does open up for more issues long-term as well such as further infectdion. Patient refusing diuretics. Patient is going to discuss further with sisters and hospice. Continue current medical management. Supervisory-Addendum Brief Verification & Attestation Participated in pt care: history, MDM, physical Personally performed: exam, history, MDM, supervision of care Care discussed with: Medical Student Procedures: n/a Results interpretation: Verified all documentation Verification and Attestation of Medical Student E/M Service A medical student performed and documented this service in my presence. I reviewed and verified all information documented by the medical student and made modifications to such information, when appropriate. I personally performed the physical exam and medical decision making. Monty Tam, Jun 11, 2019,18:42 [facility] Jun 11, 2019 07:43 MONTY TAM DO Jun 11, 2019 18:41
[2019-06-11 08:00] VITALS: BP 179/95
[2019-06-11] MEDS: APIXABAN 5 MG (ELIQUIS) TABLET PO SCH ×2 (08:56→21:13)
[2019-06-11] MEDS: fentaNYL PATCH 100 MCG (DURAGESIC) TD SCH (08:56)
[2019-06-11] MEDS: lisINopril 5 MG (PRINIVIL) TABLET PO SCH (08:56)
[2019-06-11] MEDS: CARVEDILOL 3.125 MG (COREG) TABLET PO SCH ×2 (08:56→21:13)
[2019-06-11] MEDS: DOCUSATE SODIUM 100 MG (COLACE) CAP PO SCH ×2 (08:57→21:41)
[2019-06-11] MEDS: DAKIN'S 1/4 STRENGTH (0.125%) 473 ML BTL TOP SCH ×2 (08:57→21:44)
[2019-06-11] MEDS: HYDROcodone/APAP 5 MG/325 MG (LORTAB) TAB PO PRN ×4 (08:58→22:06)
--- NOTE | 2019-06-11 09:00 | NUR ---
WASTED X 2 DURAGESIC PATCHES WITH JANENE LAY.
[2019-06-11] MEDS: fentaNYL PATCH 25 MCG (DURAGESIC) TD SCH (09:15)
[2019-06-11] MEDS: fluCOnazole (DIFLUCAN) 100 MG TAB PO SCH (09:15)
--- NOTE | 2019-06-11 09:50 | Cardiology Progress Note ---
Subjective Date Seen by Provider: Jun 11, 2019 Time Seen by Provider: 09:48 Subjective/Events-last exam Patient is laying down in bed, complaining of fatigue, no chest pain Review of Systems General: No Chills, No Night Sweats; Fatigue, Malaise; No Appetite, No Other HEENT: No Head Aches, No Visual Changes, No Eye Pain, No Ear Pain, No Dysphasia, No Sinus Congestion, No Post Nasal Drip, No Sore Throat, No Other Pulmonary: Dyspnea; No Cough, No Pleuritic Chest Pain, No Other Cardiovascular: Edema; No: Chest Pain, Palpitations, Orthopnea, Paroxysmal Noc. Dyspnea, Lt Headedness, Other Objective-Cardiology Exam Last Set of Vital Signs Vital Signs 06/08/19 06/11/19 11:03 08:00 Temp 37.0 Pulse 67 Resp 20 B/P (MAP) 179/95 (123) Pulse Ox 97 O2 Delivery Room Air O2 Flow Rate 2.00 Capillary Refill : Less Than 3 SecondsGreater Than 3 Seconds I&O Intake and Output 06/11/19 00:00 Intake Total 2190 ml Output Total 3475 ml Balance -1285 ml Intake Oral 850 ml IV Total 1340 ml Output Urine Total 3375 ml Stool Total 100 ml General: Alert, No Acute Distress HEENT: Atraumatic Neck: Supple Lungs: Clear to Auscultation, Normal Air Movement Heart: Regular Rate, No Murmurs Abdomen: Other (Enterocutaneous fistula) Extremities: No Clubbing Skin: No Rashes Neuro: Normal Speech Psych/Mental Status: Mental Status NL Results Lab Laboratory Tests 06/11/19 05:00 A/P-Cardiology Admission Diagnosis Atrial flutter Coronary artery disease Sepsis Diabetes mellitus Assessment/Plan Paroxysmal atrial flutter, had transient episode, returned to sinus rhythm, no previous history of arrhythmia. Continue to monitor at this time. Coronary artery disease, history of stent done about 2 years ago, no recent cardiac workup, no active chest pain. No shortness of breath. Continue to monitor. Consider stress test as outpatient. Perirectal abscess with possible early necrotizing fasciitis, treated aggressively, receiving antibiotic and had debridement, managed by Dr. Tam Enterocutaneous fistula, incarcerated hernia, managed by Dr. Tam Bilateral hydronephrosis, questionable abscess formation, receiving antibiotic, patient has been refusing to have a Evans catheter. Managed by primary care team Left thigh pain, ultrasound showed nonocclusive DVT in the left popliteal vein, maintained on Eliquis Diabetes mellitus, followed and managed by primary care physician Peripheral edema, refusing diuretics due to incontinence, refusing catheter. Clinical Quality Measures DVT/VTE Risk/Contraindication: Risk Factor Score Per Nursin RFS Level Per Nursing on Admit: 4+=Very High ANA MARIA LOVELL MD Jun 11, 2019 09:50
[2019-06-11] MEDS ORDERED: PATCH REMOVAL TP SCH (10:00)
[2019-06-11] MEDS: DIAZEPAM 2 MG (VALIUM) TAB PO PRN ×3 (11:08→22:07)
[2019-06-11] MEDS: inSUlin ASPART (NovoLOG) 1 UNIT/0.01 ML (CHARGE PER UNIT) SC SCH ×4 (11:23→21:43)
--- NOTE | 2019-06-11 14:06 | Progress Note - Hospitalist ---
NEENA HERNANDEZ, MEDICAL STUDENT 06/11/19 1406: Subjective HPI/CC On Admission ER by private vehicle with a few days of urinary frequency, suprapubic abdominal pain. General malaise, hyperglycemia area sugar was as high as 500 earlier today. He has a history of diverticulitis with "fistulas" (unclear where). He's been on 2 different rounds of antibiotics since 05/10/19 without any improvement in his symptoms. Patient sleeping this morning upon arousal less pain noted. He has a fentanyl patch on nurses only had to give 1 dose of narcotic through the night. No chest pain or shortness of breath reported. Subjective/Events-last exam Patient is doing well Denies pain No trouble breathing over night Waiting to see surgery to make decision on his fistula Objective Exam Vital Signs Vital Signs Date Time Temp Pulse Resp B/P (MAP) Pulse Ox O2 Delivery O2 Flow Rate FiO2 06/11/19 08:00 37.0 67 20 179/95 (123) 97 Room Air 06/08/19 11:03 2.00 Capillary Refill : Less Than 3 SecondsGreater Than 3 Seconds General Appearance: No Apparent Distress HEENT: PERRL/EOMI, TMs Normal, Pharynx Normal Neck: Full Range of Motion, Non Tender, Supple Respiratory: Chest Non Tender, Lungs Clear, Normal Breath Sounds, No Accessory Muscle Use Cardiovascular: Regular Rate, Rhythm, No Gallop, No JVD Gastrointestinal: Normal Bowel Sounds, No Organomegaly, No Pulsatile Mass, Soft Rectal: Deferred Back: Normal Inspection, No Vertebral Tenderness Extremity: Normal Capillary Refill, Normal Inspection, Normal Range of Motion, Non Tender Neurologic/Psychiatric: Alert, Oriented x3, No Motor/Sensory Deficits, Normal Mood/Affect Reflexes: 2+ Bicep (R), 2+ Bicep (L), 2+ Tricep (R), 2+ Tricep (L), 2+ Knee (R), 2+ Knee (L), 2+ Ankle (R), 2+ Ankle (L) Skin: Normal Color, Warm/Dry Lymphatic: No Adenopathy Results/Procedures Lab Laboratory Tests 06/11/19 05:00 Patient resulted labs reviewed. Assessment/Plan Assessment and Plan Assess & Plan/Chief Complaint 59 YO M w/ PMH of prostate cancer with enterocutaneous fistula and wound on R buttock that is being followed by surgery. Patient's vitals and breathing is now stable will defer to surgery for management. Lungs clear to auscultation Finish Antibiotic regiment Insulin Sliding Scale to manage hyperglycemia Patient refusing diuretics due to incontinence Appreciate surgery recs Clinical Quality Measures DVT/VTE Risk/Contraindication: Risk Factor Score Per Nursin RFS Level Per Nursing on Admit: 4+=Very High SILVIA SAMANO DO 06/11/192102: Subjective HPI/CC On Admission Date Seen by Provider: Jun 11, 2019 Time Seen by Provider: 09:30 Subjective/Events-last exam Enterocutaneous fistula very localized and contained no need for any type of surgical intervention at this time per Dr. Tam Labs remain stable Blood sugar in the low 200 range Review of Systems General: Fatigue Gastrointestinal: Abdominal Pain Objective Exam General Appearance: No Apparent Distress, WD/WN, Chronically ill Respiratory: Chest Non Tender, Lungs Clear, Normal Breath Sounds, No Accessory Muscle Use, No Respiratory Distress Cardiovascular: Regular Rate, Rhythm, No Edema, No Gallop, No JVD, No Murmur, Normal Peripheral Pulses Neurologic/Psychiatric: Alert, Oriented x3, No Motor/Sensory Deficits, Normal Mood/Affect Assessment/Plan Assessment and Plan Assess & Plan/Chief Complaint Plan: Monitor enterocutaneous fistula Supervisory-Addendum Brief Verification & Attestation Participated in pt care: history, MDM, physical Personally performed: exam, history, MDM, supervision of care Care discussed with: Medical Student Procedures: n/a Results interpretation: Verified all documentation Verification and Attestation of Medical Student E/M Service A medical student performed and documented this service in my presence. I re viewed and verified all information documented by the medical student and made modifications to such information, when appropriate. I personally performed the physical exam and medical decision making. Silvia Samano, Jun 11, 2019,21:03 NEENA HERNANDEZ, MEDICAL STUDENT Jun 11, 2019 14:06 SILVIA SAMANO DO Jun 11, 2019 21:03
[2019-06-11] MEDS ORDERED: DIAZEPAM 2 MG (VALIUM) TAB PO NR (15:45)
[2019-06-11 16:00] VITALS: BP 170/79
[2019-06-11] MEDS: TAMSULOSIN 0.4 MG (FLOMAX) CAP PO SCH (18:09)
[2019-06-12] MEDS: HYDROmorphone (DILAUDID) 4 MG TAB PO PRN (02:46)
[2019-06-12] MEDS: DIAZEPAM 2 MG (VALIUM) TAB PO PRN ×2 (05:11→12:34)
[2019-06-12] MEDS: LACTOBACILLUS ACIDOPHILUS (PROBIOTIC) CAPSULE PO SCH ×2 (05:11→12:35)
[2019-06-12 05:30] LABS: BASOPHILS % (AUTO) 0 % (0-10); EOSINOPHILS # (AUTO) 0.2 10^3/uL (0.0-0.3); EOSINOPHILS % (AUTO) 2 % (0-10); HEMATOCRIT 34 % (40-54); HEMOGLOBIN 10.7 G/DL (13.3-17.7); LYMPHOCYTES # (AUTO) 0.9 X 10^3 (1.0-4.0); LYMPHOCYTES % (AUTO) 7 % (12-44); MEAN CORPUSCULAR HEMOGLOBIN 26 PG (25-34); MEAN CORPUSCULAR HGB CONC 32 G/DL (32-36); MEAN CORPUSCULAR VOLUME 83 FL (80-99); MEAN PLATELET VOLUME 8.9 FL (7.4-10.4); MONOCYTES # (AUTO) 0.4 X 10^3 (0.0-1.0); MONOCYTES % (AUTO) 4 % (0-12); NEUTROPHILS % (AUTO) 88 % (42-75); PLATELET COUNT 450 10^3/uL (130-400); WHITE BLOOD COUNT 12.5 10^3/uL (4.3-11.0)
[2019-06-12 05:50] LABS: BUN/CREATININE RATIO 9; CALCIUM 9.1 MG/DL (8.5-10.1); CARBON DIOXIDE 24 MMOL/L (21-32); CHLORIDE 101 MMOL/L (98-107); CREATININE SERUM 0.91 MG/DL (0.60-1.30); GFR ESTIMATED > 60; GLUCOSE 204 MG/DL (70-105); MAGNESIUM 1.7 MG/DL (1.6-2.4); PHOSPHORUS 3.9 MG/DL (2.3-4.7); POTASSIUM 4.3 MMOL/L (3.6-5.0); SODIUM 134 MMOL/L (135-145)
[2019-06-12] MEDS: inSUlin ASPART (NovoLOG) 1 UNIT/0.01 ML (CHARGE PER UNIT) SC SCH ×2 (06:52→12:30)
--- NOTE | 2019-06-12 07:35 | Progress Note - Surgery ---
Subjective Date Seen by a Provider: Jun 12, 2019 Time Seen by a Provider: 07:25 Subjective/Events-last exam pt sleeping in bed. C/o of being in pain "all the time". Denies dysuria, abd pain, N/V, fevers or chills. Colostomy bag draining well, was changed 3 times yesterday. Pt is also still having BMs. Pt has not been using his incentive spirometer as directed, he says he only uses it once a day. Reports he was told by wound care nurse that his buttock wound looked good. Review of Systems General: No Chills, No Night Sweats HEENT: No Head Aches Pulmonary: No Dyspnea, No Cough Cardiovascular: No: Chest Pain, Palpitations Gastrointestinal: Abdominal Pain; No: Nausea, Vomiting Musculoskeletal: other (pain to R buttock ), back pain Objective Exam Vital Signs Date Time Temp Pulse Resp B/P (MAP) Pulse Ox O2 Delivery O2 Flow Rate FiO2 06/11/19 23:45 20 06/11/19 20:00 Room Air 06/11/19 16:00 37.3 77 20 170/79 (109) 98 Room Air 06/11/19 08:00 Room Air 06/11/19 08:00 37.0 67 20 179/95 (123) 97 Room Air I & O 06/12/19 07:00 Intake Total 1390 ml Output Total 3950 ml Balance -2560 ml Capillary Refill : Less Than 3 SecondsGreater Than 3 Seconds General Appearance: No Apparent Distress, WD/WN, Chronically ill, Obese HEENT: PERRL/EOMI, Moist Mucous Membranes Neck: Full Range of Motion, Non Tender, Supple Respiratory: Chest Non Tender, Lungs Clear, Normal Breath Sounds, No Accessory Muscle Use, No Respiratory Distress Cardiovascular: Regular Rate, Rhythm, No Edema, No Gallop, No JVD, No Murmur, Normal Peripheral Pulses Peripheral Pulses: 2+ Radial Pulses (R), 2+ Radial Pulses (L) Gastrointestinal: soft (skin does not have any signs of erythema); No distended; hernia (huge midline hernia), other (Pt has a fistula in midline scar; most likely an enterocutaneious fistula with fecal output. colostomy bag in place, draining stool) Extremity: Pedal Edema, Swelling (bilaterally), Other (R buttock wound: VAC VERAFLO in place) Neurologic/Psychiatric: Alert, Oriented x3, No Motor/Sensory Deficits, Normal Mood/Affect Skin: Normal Color, Warm/Dry Lymphatic: No Adenopathy Results Lab Laboratory Tests 06/11/19 11:12: Glucometer 242H 06/11/19 16:22: Glucometer 264H 06/11/19 20:18: Glucometer 163H 06/12/19 05:10: White Blood Count 12.5H, Red Blood Count 4.06L, Hemoglobin 10.7L, Hematocrit 34L , Mean Corpuscular Volume 83, Mean Corpuscular Hemoglobin 26, Mean Corpuscular Hemoglobin Concent 32, Red Cell Distribution Width 15.0H, Platelet Count 450H, Mean Platelet Volume 8.9, Neutrophils (%) (Auto) 88H, Lymphocytes (%) (Auto) 7L, Monocytes (%) (Auto) 4, Eosinophils (%) (Auto) 2, Basophils (%) (Auto) 0, Neutrophils # (Auto) 11.0H, Lymphocytes # (Auto) 0.9L, Monocytes # (Auto) 0.4, Eosinophils # (Auto) 0.2, Basophils # (Auto) 0.0, Sodium Level 134L, Potassium Level 4.3, Chloride Level 101, Carbon Dioxide Level 24, Anion Gap 9, Blood Urea Nitrogen 8, Creatinine 0.91, Estimat Glomerular Filtration Rate > 60, BUN/Creatinine Ratio 9, Glucose Level 204H, Calcium Level 9.1, Phosphorus Level 3.9, Magnesium Level 1.7 06/12/19 05:57: Glucometer 205H Microbiology 06/06/19 Urine Culture - Final, Complete Yeast species 06/02/19 MRSA Screen - Final, Complete 06/02/19 Gram Stain - Final, Complete 06/02/19 Anaerobic Culture - Final, Complete Bacteroides ovatus See Comments 06/02/19 Wound Culture - Final, Complete Escherichia coli Strep anginosus Lactobacillus gasseri YEAST 06/01/19 Blood Culture - Final, Complete Klebsiella pneumoniae Assessment/Plan Assessment/Plan Assessment/Plan 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 Elevated WBC, finished course of abx yesterday, no new abx ordered currently Pt not compliant with SI, educated on importance of using SI Continue current medical management. Patient decided to go with hospice care. Patient discharged to hospice, prior to me seeing. Agree with plan. Clinical Quality Measures DVT/VTE Risk/Contraindication: Risk Factor Score Per Nursin RFS Level Per Nursing on Admit: 4+=Very High Supervisory-Addendum Brief Verification & Attestation Participated in pt care: other (patient discharged prior to being seen, agree with discharge) Personally performed: other (patient discharged prior to being seen, agree with discharge) Care discussed with: Medical Student Procedures: n/a Results interpretation: Verified all documentation patient discharged prior to being seen, agree with discharge to hospice as patient requests. HECTOR DAVIS MED STUD Jun 12, 2019 07:35 MONTY GAO DO Jun 12, 2019 21:10
[2019-06-12] MEDS: HYDROcodone/APAP 5 MG/325 MG (LORTAB) TAB PO PRN ×2 (08:11→15:13)
--- NOTE | 2019-06-12 08:14 | Cardiology Progress Note ---
Subjective Date Seen by Provider: Jun 12, 2019 Time Seen by Provider: 08:13 Subjective/Events-last exam Patient is laying down in bed, no new complaint, requesting hospice Review of Systems General: No Chills, No Night Sweats, No Fatigue, No Malaise, No Appetite, No Other HEENT: No Head Aches, No Visual Changes, No Eye Pain, No Ear Pain, No Dysphasia, No Sinus Congestion, No Post Nasal Drip, No Sore Throat, No Other Pulmonary: No Dyspnea, No Cough, No Pleuritic Chest Pain, No Other Cardiovascular: No: Chest Pain, Palpitations, Orthopnea, Paroxysmal Noc. Dyspnea, Edema, Lt Headedness, Other Objective-Cardiology Exam Last Set of Vital Signs Vital Signs 06/08/19 06/11/19 06/11/19 06/11/19 11:03 16:00 20:00 23:45 Temp 37.3 Pulse 77 Resp 20 B/P (MAP) 170/79 (109) Pulse Ox 98 O2 Delivery Room Air O2 Flow Rate 2.00 Capillary Refill : Less Than 3 SecondsGreater Than 3 Seconds I&O l Intake and Output 06/12/19 00:00 Intake Total 1390 ml Output Total 4650 ml Balance -3260 ml Intake Oral 220 ml IV Total 1170 ml Output Urine Total 3500 ml Stool Total 300 ml Gastric Drainage Total 850 ml General: Alert, No Acute Distress HEENT: Atraumatic Neck: Supple Lungs: Clear to Auscultation, Normal Air Movement Heart: Regular Rate, Normal S1, Normal S2, No Murmurs Abdomen: Other (Enterocutaneous fistula) Extremities: No Clubbing Skin: No Rashes Neuro: Normal Speech Psych/Mental Status: Mental Status NL Results Lab Laboratory Tests 06/12/19 05:10 A/P-Cardiology Admission Diagnosis Atrial flutter Coronary artery disease Sepsis Diabetes mellitus Assessment/Plan Paroxysmal atrial flutter, had transient episode, returned to sinus rhythm, no previous history of arrhythmia. Continue to monitor at this time. Coronary artery disease, history of stent done about 2 years ago, no recent cardiac workup, no active chest pain. No shortness of breath. Continue to monitor. Consider stress test as outpatient. Perirectal abscess with possible early necrotizing fasciitis, treated aggressively, receiving antibiotic and had debridement, managed by Dr. Tam Enterocutaneous fistula, incarcerated hernia, managed by Dr. Tam Bilateral hydronephrosis, questionable abscess formation, receiving antibiotic, patient has been refusing to have a Evans catheter. Managed by primary care team Left thigh pain, ultrasound showed nonocclusive DVT in the left popliteal vein, maintained on Eliquis Diabetes mellitus, followed and managed by primary care physician Peripheral edema, refusing diuretics due to incontinence, refusing catheter. Discussed with the patient management plan, he expressed clearly that he want to proceed with hospice and does not want any further surgery Clinical Quality Measures DVT/VTE Risk/Contraindication: Risk Factor Score Per Nursin RFS Level Per Nursing on Admit: 4+=Very High ANA MARIA LOVELL MD Jun 12, 2019 08:14
[2019-06-12 08:25] VITALS: BP 148/75
--- NOTE | 2019-06-12 10:23 | NUR ---
PALLIATIVE CARE RN consult received from Dr. Tam last evening. Approached by Dr. Farris who indicates that the patient just wants to go home with hospice. Arrived to patient room and he was standing at bedside trying to get exercise, he is tethered to a wound vac so cannot move around much. Explained reason for visit and he agreed that he just wants to go home and get hospice. In further discussion he is not sure how things will go if he does not have a wound vac at discharge. I explained to him that I am unsure if hospice will agree to manage the wound vac and without it they will try to keep wound clean and dry with other applications of dressings but that he would likely get it infected and worsen. He would like to talk to [facility] whom he has been on service with before. I have sent the referral.
[2019-06-12] MEDS: DOCUSATE SODIUM 100 MG (COLACE) CAP PO SCH (11:48)
[2019-06-12] MEDS: fluCOnazole (DIFLUCAN) 100 MG TAB PO SCH (11:48)
[2019-06-12] MEDS: APIXABAN 5 MG (ELIQUIS) TABLET PO SCH (11:48)
[2019-06-12] MEDS: CARVEDILOL 3.125 MG (COREG) TABLET PO SCH (11:48)
[2019-06-12] MEDS: lisINopril 5 MG (PRINIVIL) TABLET PO SCH (11:48)
--- NOTE | 2019-06-12 11:58 | Progress Note - Hospitalist ---
NEENA HERNANDEZ, MEDICAL STUDENT 06/12/19 1158: Subjective HPI/CC On Admission ER by private vehicle with a few days of urinary frequency, suprapubic abdominal pain. General malaise, hyperglycemia area sugar was as high as 500 earlier today. He has a history of diverticulitis with "fistulas" (unclear where). He's been on 2 different rounds of antibiotics since 05/10/19 without any improvement in his symptoms. Patient sleeping this morning upon arousal less pain noted. He has a fentanyl patch on nurses only had to give 1 dose of narcotic through the night. No chest pain or shortness of breath reported. Subjective/Events-last exam Complains of pain not being well controlled Patient has decided that he does not want an operation no matter what center it is at. He wants to go back to hospice and "allow things to take their course" Objective Exam Vital Signs Vital Signs Date Time Temp Pulse Resp B/P (MAP) Pulse Ox O2 Delivery O2 Flow Rate FiO2 06/12/19 08:25 37.0 73 20 148/75 (99) 93 Room Air 06/08/19 11:03 2.00 Capillary Refill : Less Than 3 SecondsGreater Than 3 Seconds General Appearance: WD/WN, Chronically ill, Mild Distress HEENT: PERRL/EOMI, TMs Normal, Normal ENT Inspection, Pharynx Normal Neck: Full Range of Motion, Normal Inspection, Non Tender, Supple Respiratory: Chest Non Tender, Lungs Clear, Normal Breath Sounds, No Accessory Muscle Use, No Respiratory Distress Cardiovascular: Regular Rate, Rhythm, No Edema, No Gallop, No JVD, No Murmur Gastrointestinal: No Organomegaly, Soft, Other Rectal: Deferred Back: Normal Inspection, No Vertebral Tenderness Extremity: Normal Capillary Refill, Normal Range of Motion, Non Tender, No Calf Tenderness Neurologic/Psychiatric: Alert, Oriented x3, No Motor/Sensory Deficits, Normal Mood/Affect, director payment II-XII Norm as Tested Reflexes: 2+ Bicep (R), 2+ Bicep (L), 2+ Tricep (R), 2+ Tricep (L), 2+ Knee (R), 2+ Knee (L), 2+ Ankle (R), 2+ Ankle (L) Skin: Normal Color, Warm/Dry Lymphatic: No Adenopathy Results/Procedures Lab Laboratory Tests 06/12/19 05:10 Patient resulted labs reviewed. Assessment/Plan Assessment and Plan Assess & Plan/Chief Complaint 59 YO M w/ PMH of prostate cancer with enterocutaneous fistula and wound on R buttock that is being followed by surgery. Patient's vitals and breathing is now stable will defer to surgery for management. Lungs clear to auscultation Finish Antibiotic regiment Insulin Sliding Scale to manage hyperglycemia Patient refusing diuretics due to incontinence Appreciate surgery recs - Patient has decided that he would like to return to hospice and is denying surgical intervention Clinical Quality Measures DVT/VTE Risk/Contraindication: Risk Factor Score Per Nursin RFS Level Per Nursing on Admit: 4+=Very High SILVIA SAMANO DO 06/12/192154: Subjective HPI/CC On Admission Date Seen by Provider: Jun 12, 2019 Time Seen by Provider: 10:00 Subjective/Events-last exam Pt wants to go on hospice He has been on hospice before for cancer but did not require end of life care so he was no longer enrolled Blood sugars remain stable Lungs are completely clear today Review of Systems General: Fatigue Objective Exam General Appearance: No Apparent Distress, WD/WN, Chronically ill Supervisory-Addendum Brief Verification & Attestation Participated in pt care: history, MDM, physical Personally performed: exam, history, MDM, supervision of care Care discussed with: Medical Student Procedures: n/a Results interpretation: Verified all documentation Verification and Attestation of Medical Student E/M Service A medical student performed and documented this service in my presence. I reviewed and verified all information documented by the medical student and made modifications to such information, when appropriate. I personally performed the physical exam and medical decision making. Silvia Samano, Jun 12, 2019,21:55 NEENA HERNANDEZ, MEDICAL STUDENT Jun 12, 2019 11:58 SILVIA SAMANO DO Jun 12, 2019 21:55
--- NOTE | 2019-06-12 15:30 | NUR ---
DCd wound vac and applied wet to dry dressing per doctor order. patient to dc with hospice
--- NOTE | 2019-06-12 15:37 | NUR ---
"RD ASSESSMENT PMHx: IA; chronic-UTI; DM; diverticulosis; Prostate CA PT INTERACTION: Pt was awake and pleasant during nutrition follow-up. Pt states he has been eating poorly since last assessment. Note pt has been NPO x2d, and prior to NPO status had been eating approximately 50% of meals, per chart review. Pt states some issues with nausea since last assessment. Pt states no issues with constipation/diarrhea since last assessment. Note last BM was 06/09, and pt currently on bowel regimen of colace BID, per chart review. ABNORMAL NUTRITION-RELATED LAB VALUES LOW: Na 134 HIGH: glu 205 Est. kcal needs: 4530-1366 kcal | 15-18 kcal/kg Est. Pro needs: 128-150 g Pro | 1.2-1.4 g Pro/kg PES STATEMENT: Inadequate oral intake (NI-2.1) related to nausea | loss of appetite | NPO status as evidenced by pt interview | chart review INTERVENTION: Note pt is currently NPO. Would recommend advancing diet as medically able and as tolerated. Will continue to follow and reassess as pt needs and status change. MONITOR/EVALUATE: PO Intake; Plan of Care; Hydration Status; Weight Status; Lab Values Donald Stauffer, MS, RD, LD"
[2019-06-12 15:55] VITALS: BP 148/75
--- NOTE | 2019-06-12 21:57 | Discharge Summary ---
Discharge Summary Hospital Course Was the Problem List Reviewed?: Yes Problems/Dx: (1) Necrotizing cellulitis Status: Acute (2) Urinary tract infection (3) Hydroureteronephrosis Status: Acute (4) Acute renal insufficiency Status: Resolved (5) Lymphadenopathy (6) Diabetes mellitus, type 2 Status: Chronic Qualifiers: (7) Chronic pain Status: Chronic Qualifiers: Qualified Codes: G89.4 - Chronic pain syndrome (8) Thrombosis of left popliteal vein (9) Enterocutaneous fistula Hospital Course Date of Admission: Jun 01, 2019 at 22:03 Admission Diagnosis : Family Physician/Provider: Date of Discharge: 06/12/19 Discharge Diagnosis: Necrotizing perirectal abscess with wound vac in place, enterocutaneous fistula not a surgical candidate Hospital Course: Patient had a very lengthy hospital course after admitted for PNA and sepsis with perirectal abscess s/p debridement and wound vac placement and abx administration. Patient had continued issues including enterocutaneous fistula and was deemed a non-surgical candidate. Patient opted for Hospice and that was arranged and patient was DC with his family in stable condition. Labs and Pending Lab Test: Laboratory Tests 06/12/19 05:10: White Blood Count 12.5H, Red Blood Count 4.06L, Hemoglobin 10.7L, Hematocrit 34L , Mean Corpuscular Volume 83, Mean Corpuscular Hemoglobin 26, Mean Corpuscular Hemoglobin Concent 32, Red Cell Distribution Width 15.0H, Platelet Count 450H, Mean Platelet Volume 8.9, Neutrophils (%) (Auto) 88H, Lymphocytes (%) (Auto) 7L, Monocytes (%) (Auto) 4, Eosinophils (%) (Auto) 2, Basophils (%) (Auto) 0, Neutrophils # (Auto) 11.0H, Lymphocytes # (Auto) 0.9L, Monocytes # (Auto) 0.4, Eosinophils # (Auto) 0.2, Basophils # (Auto) 0.0, Sodium Level 134L, Potassium Level 4.3, Chloride Level 101, Carbon Dioxide Level 24, Anion Gap 9, Blood Urea Nitrogen 8, Creatinine 0.91, Estimat Glomerular Filtration Rate > 60, BUN/Creatinine Ratio 9, Glucose Level 204H, Calcium Level 9.1, Phosphorus Level 3.9, Magnesium Level 1.7 06/12/19 05:57: Glucometer 205H 2/11/20 10:13: Glucometer 280H Microbiology 06/06/19 Urine Culture - Final, Complete Yeast species 06/02/19 MRSA Screen - Final, Complete 06/02/19 Gram Stain - Final, Complete 06/02/19 Anaerobic Culture - Final, Complete Bacteroides ovatus See Comments 06/02/19 Wound Culture - Final, Complete Escherichia coli Strep anginosus Lactobacillus gasseri YEAST 06/01/19 Blood Culture - Final, Complete Klebsiella pneumoniae Home Meds Active Reported Fentanyl Patch 100 MCG (Fentanyl) 1 Each Patch.td72 100 Mcg TD Q72H USES ALONG WITH 25MCG PATCH Fentanyl Patch 25 MCG (Fentanyl) 1 Each Patch.td72 25 Mcg TD Q72H USES ALONG WITH 100MCG PATCH Proair Hfa (Albuterol Sulfate) 1 Puff Puff 2 Puff INH Q6H PRN Invokana (Canagliflozin) 100 Mg Tablet 100 Mg PO DAILY Hydromorphone HCl 4 Mg Tablet 4 Mg PO BID Levemir Flextouch (Insulin Detemir) 100 Unit/1 Ml Insuln.pen 30 Units SC BID Metformin HCl 1,000 Mg Tablet 1,000 Mg PO BID Eliquis (Apixaban) 5 Mg Tablet 5 Mg PO BID Atorvastatin Calcium 40 Mg Tablet 40 Mg PO HS Carvedilol 3.125 Mg Tablet 3.125 Mg PO BID Lisinopril 5 Mg Tablet 5 Mg PO DAILY Assessment/Pt Instructions Hospice enrollment Discharge Planning: <30 minutes discharge planning Discharge Instructions Discharge Diet: No Restrictions Pneumonia Vaccine Order Indica: Yes Discharge Physical Examination Vital Signs Vital Signs Date Time Temp Pulse Resp B/P (MAP) Pulse Ox O2 Delivery O2 Flow Rate FiO2 06/12/19 15:55 37.0 73 20 148/75 93 Room Air 2.00 General Appearance: No Apparent Distress, WD/WN, Chronically ill Allergies: Coded Allergies: No Known Drug Allergies (Unverified , 05/31/13) Discharge Summary Date of Admission Jun 01, 2019 at 22:03 Date of Discharge Jun 12, 2019 at 15:55 Discharge Date: Jun 12, 2019 Admission Diagnosis A/P 1. Left gluteal abscess possible early necrotizing fasciitis status post surgical incision and drainage and debridement continue broad-spectrum antibiotics culture pending. 2. Sepsis secondary to number 1 thus far not severe. 3. Type II diabetes mellitus with hyperglycemia secondary to noncompliance with insulin and overall diabetic care which is likely the major reason for number 1. Hyperglycemia improved overnight patient has been switched to basal and bolus insulin no evidence for DKA. Discharge Diagnosis Plan: Monitor enterocutaneous fistula (1) Necrotizing cellulitis Status: Acute (2) Urinary tract infection (3) Hydroureteronephrosis Status: Acute (4) Acute renal insufficiency Status: Resolved (5) Lymphadenopathy (6) Diabetes mellitus, type 2 Status: Chronic Qualifiers: (7) Chronic pain Status: Chronic Qualifiers: Qualified Codes: G89.4 - Chronic pain syndrome (8) Thrombosis of left popliteal vein (9) Enterocutaneous fistula Clinical Quality Measures DVT/VTE Risk/Contraindication: Risk Factor Score Per Nursin RFS Level Per Nursing on Admit: 4+=Very High MARY SAMANO DO Jun 12, 2019 21:57
--- NOTE | 2019-06-15 03:59 | OPERATIVE REPORT ---
DATE OF SERVICE: 06/01/2019 PREOPERATIVE DIAGNOSIS: Right buttock perirectal necrotizing soft tissue infection. POSTOPERATIVE DIAGNOSIS: Right buttock perirectal necrotizing soft tissue infection. PROCEDURE: Incision, drainage and debridement a 8 x 5 x 8 cm right buttock and perirectal necrotizing soft tissue infection and right internal jugular vein ultrasound-guided central line placement. SURGEON: Monty Tam DO ANESTHESIA: General. ESTIMATED BLOOD LOSS: Minimal. COMPLICATIONS: None. SPECIMENS AND CULTURE: Necrotic tissue and skin. INDICATIONS: The patient is a 59-year-old male with a necrotizing soft tissue infection of the right buttock, perirectal area. He understands risks and benefits of procedures and wished to proceed. Consent was signed in the chart. DESCRIPTION OF PROCEDURE: The patient was taken to the operating suite, prepped and draped in usual sterile fashion for central line placement. Timeout was performed. Using ultrasound, the right internal jugular vein was visualized. The right internal jugular vein was then accessed and guidewire was inserted under visualization of the ultrasound. The needle was removed. A #11 blade scalpel was used to make a small skin incision at the insertion point. The dilator was then advanced over the guidewire and removed. The triple lumen catheter was inserted over the wire and the wire was then removed. The triple lumen catheter was then secured in the usual fashion. All ports were accessed and flushed with heparinized saline without difficulty. The area was then washed and dried and sterile bandage was applied. The chest x-ray is pending. The patient was repositioned for the necrotizing soft tissue infection. The right buttock had area of fluctuance, which was then opened with a 15 blade scalpel. Purulent material erupted and culture was obtained. The skin and subcutaneous necrotic tissue were then debrided both sharply and with cautery dissection. Overall, dimensions of debridement were 8 x 5 x 8 cm. This was all through skin and subcutaneous fat that went down to the perirectal area. The wound was then irrigated with copious amounts of irrigation. Hemostasis was achieved. All the necrotic tissue was removed. The wound was then packed with Kerlix with Betadine. The area was then washed and dried on the skin and sterile bandage was applied. The patient tolerated procedure well. He was taken back to intensive care unit in stable condition. The patient likely will need further surgical intervention with necrotic soft tissue infection, high risk of morbidity and mortality. Job ID: [id number] DocumentID: [id number] Dictated Date: 06/14/2019 21:41:25 Bacon Slicer Date: 06/15/2019 03:57:40 Dictated By: MONTY TAM DO
== END 2019-06-12 15:55 | disposition hospice, home (50) | DRG 853 ==
LOC: EDUNIT# 20:02 → ER 20:03 → ICU 22:03 → 4TH 06-06 15:36
PROVIDERS: ADMIT Internal Medicine; ATTEND Internal Medicine
PROC: 0JB90ZZ Excision of Buttock Subcutaneous Tissue and Fascia, Open Approach (ICD-10-PCS; 2019-06-01)
PROC: 02HV33Z Insertion of Infusion Device into Superior Vena Cava, Percutaneous Approach (ICD-10-PCS; 2019-06-01)
PROC: 0JB90ZZ Excision of Buttock Subcutaneous Tissue and Fascia, Open Approach (ICD-10-PCS; principal; 2019-06-04 12:16)
DX: A41.9 Sepsis, unspecified organism (principal); M72.6 Necrotizing fasciitis; E11.00 Type 2 diabetes mellitus with hyperosmolarity without nonketotic hyperglycemic-hyperosmolar coma (NKHHC); J18.9 Pneumonia, unspecified organism; L02.31 Cutaneous abscess of buttock; K61.1 Rectal abscess; I48.92 Unspecified atrial flutter; I82.432 Acute embolism and thrombosis of left popliteal vein; K43.0 Incisional hernia with obstruction, without gangrene; K63.2 Fistula of intestine; L03.317 Cellulitis of buttock; N13.6 Pyonephrosis; E11.65 Type 2 diabetes mellitus with hyperglycemia; I25.10 Atherosclerotic heart disease of native coronary artery without angina pectoris; I25.2 Old myocardial infarction; G47.33 Obstructive sleep apnea (adult) (pediatric); F17.210 Nicotine dependence, cigarettes, uncomplicated; M19.90 Unspecified osteoarthritis, unspecified site; R35.0 Frequency of micturition; Z91.19 Patient's noncompliance with other medical treatment and regimen; Z95.5 Presence of coronary angioplasty implant and graft; Z79.4 Long term (current) use of insulin; Z85.46 Personal history of malignant neoplasm of prostate; Z90.49 Acquired absence of other specified parts of digestive tract; Z89.021 Acquired absence of right finger(s); E66.9 Obesity, unspecified; Z68.33 Body mass index [BMI] 33.0-33.9, adult
CPT/HCPCS: 36415; 36569; 71045; 74176; 74177; 76937; 80048; 80053; 80202; 81000; 82010; 82140; 82805; 82962; 83605; 83735; 84100; 85007; 85025; 85027; 85610; 85730; 87040; 87070; 87075; 87076; 87077; 87081; 87088; 87185; 87186; 87205; 88304; 93005; 94640; 94660; 94664; 94760; 96361; 96365; 96375